=== PATIENT | female | born 1960 | race African-American/Black ===

== ENCOUNTER 2017-11-20 15:56 | Inpatient (IN) | payer BC, OTHER ==
[2017-11-20] MEDS ORDERED: KETOROLAC 30 MG/ML INJ ONE (16:37)
[2017-11-20] MEDS ORDERED: NA CHLORIDE 0.9% 1,000 ML ONE ×2 (16:37→19:09)
[2017-11-20] MEDS ORDERED: ACETAMINOPHEN 500 MG TAB ONE (16:37)
[2017-11-20 17:12] LABS: Protime INR 1.22
[2017-11-20 17:14] LABS: Absolute Lymphocytes (CBC) 1.7 K/uL (0.7-4.9); Absolute Monocytes 1.1 K/uL (0.1-1.3); Absolute Neutrophil 16.9 K/uL (1.8-8.0); Basophils % 0.4 % (0-1.3); Eosinophils % 0.1 % (0-4.4); Hematocrit 45.3 % (36.0-45.0); Lymphocytes % 8.7 % (15.3-44.8); MCH 30.6 pg (27.0-35.0); MCV 93.3 fL (80-100); Monocytes % 5.7 % (3.3-12.3); RBC Red Blood Cell Count 4.86 M/uL (3.86-4.86)
--- NOTE | 2017-11-20 17:28 | RAD REPORT ---
EXAM DESCRIPTION: Arielle Single View11/20/2017 4:46 pm CLINICAL HISTORY: sob COMPARISON: none FINDINGS: Moderate alveolar opacities are present within the mid and lower left lung. Mild alveolar opacities are present within the right lung base. The heart is normal size IMPRESSION: Bilateral pulmonary opacities left greater than right probably represent pneumonia. This should be followed until it is clear to help exclude a post obstructive process/underlying mass
[2017-11-20] MEDS ORDERED: CEFTRIAXONE/SWI 1gm 2 GM/20 ML SYR ONE (17:48)
[2017-11-20] MEDS ORDERED: AZITHROMYCIN 500 MG/250 ML BAG ONE (17:48)
[2017-11-20 18:22] LABS: Potassium 3.5 mEq/L (3.6-5.0)
[2017-11-20 18:26] LABS: Albumin 4.2 g/dL (3.2-5.5); Bilirubin Total 0.7 mg/dL (0.3-1.2); Protein, Total 9.4 g/dL (6.0-8.3)
[2017-11-20 18:28] LABS: Bilirubin Direct 0.1 mg/dL (0-0.2)
[2017-11-20 18:35] LABS: Urine White Blood Cell Casts OK
[2017-11-20 18:36] LABS: Blood Morphology Comment NOT SEEN (NOT SEEN); Platelet Estimate ADEQ
--- NOTE | 2017-11-20 18:50 | RAD REPORT ---
EXAM DESCRIPTION: CT - Thorax W/ Con CLINICAL HISTORY: Cough, shortness of breath. COMPARISON: 09/13/2013 FINDINGS: Prominent fibroemphysematous changes are present throughout the lungs. Lung volume is redu sindy compatible with underlying fibrosis. Infiltrate is suspected in the lingula and inferior aspect o f the left upper lobe most likely representing pneumonia. No pleural thickening or pleural effusion. No pneumothorax. Mildly prominent adenopathy is seen in the mediastinum, presumably reactive. Calcified nodes are also present. No concerning bony finding. No gross upper abdominal finding. All CT scans are performed using dose optimization technique as appropriate and may include automated exposure control or mA/KV adjustment according to patient size. IMPRESSION: Advanced fibrotic and emphysematous changes are present throughout the lungs with reduce d volumes. Opacity in the lingula and inferior aspect left upper lobe likely represents pneumonia.
--- NOTE | 2017-11-20 19:03 | EDPHYS ---
Physician Documentation [facility] Name: Kristal Gaspar Age: 57 yrs Sex: Female : 1960 Arrival Date: 11/20/2017 Time: 16:00 Bed 8 Private MD: ED Physician Lawrence Saucedo HPI: 11/20 18:54 This 57 yrs old Black Female presents to ER via Ambulatory with complaints of Breathing wa Difficulty, Cough. 18:54 The patient has shortness of breath at rest, c/o cough and L side chest pain with cough wa x 1 month. now 1 week of worsening. also fever. short of breath. . Onset: The symptoms/episode began/occurred 1 week(s) ago. Duration: The symptoms are continuous, and are steadily getting worse. The patient's shortness of breath is aggravated by coughing. Associated signs and symptoms: Pertinent positives: chest pain, productive cough, dizziness, fever. Severity of symptoms: At their worst the symptoms were moderate in the emergency department the symptoms are worse moderately. The patient has not experienced similar symptoms in the past. The patient has not recently seen a physician. spokes a pack and a half of cigarettes per day. Historical: - Allergies: 16:13 No Known Allergies; aa5 - PMHx: 16:13 Hypertension; Hyperlipidemia; Degenerative disc disease; low back pain; aa5 - PSHx: 16:12 Hysterectomy; aa5 - Immunization history:: Adult Immunizations unknown. - Social history:: Smoking status: Patient uses tobacco products, smokes 1.5 packs per day. - Family history:: not pertinent. - Hospitalizations: : No recent hospitalization is reported. ROS: 18:57 Eyes: Negative for injury, pain, redness, and discharge, ENT: Negative for injury, wa pain, and discharge, Neck: Negative for injury, pain, and swelling, Abdomen/GI: Negative for abdominal pain, nausea, vomiting, diarrhea, and constipation, Back: Negative for injury and pain, : Negative for injury, bleeding, discharge, and swelling, MS/Extremity: Negative for injury and deformity, Skin: Negative for injury, rash, and discoloration, Neuro: Negative for headache, weakness, numbness, tingling, and seizure, Psych: Negative for depression, anxiety, suicide ideation, homicidal ideation, and hallucinations. 18:57 Constitutional: Positive for chills, fatigue, fever. 18:57 Cardiovascular: Positive for chest pain, with cough, Negative for edema, orthopnea, palpitations. 18:57 Respiratory: Positive for cough, with green sputum, shortness of breath, at rest. 18:57 All other systems are negative. Exam: 18:58 Head/Face: Normocephalic, atraumatic. Eyes: Pupils equal round and reactive to light, wa extra-ocular motions intact. Lids and lashes normal. Conjunctiva and sclera are non-icteric and not injected. Cornea within normal limits. Periorbital areas with no swelling, redness, or edema. ENT: Nares patent. No nasal discharge, no septal abnormalities noted. Tympanic membranes are normal and external auditory canals are clear. Oropharynx with no redness, swelling, or masses, exudates, or evidence of obstruction, uvula midline. Mucous membranes moist. Neck: Trachea midline, no thyromegaly or masses palpated, and no cervical lymphadenopathy. Supple, full range of motion without nuchal rigidity, or vertebral point tenderness. No Meningismus. Chest/axilla: Normal chest wall appearance and motion. Nontender with no deformity. No lesions are appreciated. Abdomen/GI: Soft, non-tender, with normal bowel sounds. No distension or tympany. No guarding or rebound. No evidence of tenderness throughout. Back: No spinal tenderness. No costovertebral tenderness. Full range of motion. Skin: Warm, dry with normal turgor. Normal color with no rashes, no lesions, and no evidence of cellulitis. MS/ Extremity: Pulses equal, no cyanosis. Neurovascular intact. Full, normal range of motion. Neuro: Awake and alert, GCS 15, oriented to person, place, time, and situation. Cranial nerves II-XII grossly intact. Motor strength 5/5 in all extremities. Sensory grossly intact. Cerebellar exam normal. Normal gait. Psych: Awake, alert, with orientation to person, place and time. Behavior, mood, and affect are within normal limits. 18:58 Constitutional: The patient appears alert, mild distress due to pain 18:58 Cardiovascular: Rate: tachycardic, Rhythm: regular, Pulses: no pulse deficits are appreciated, Heart sounds: normal, Edema: is not appreciated, JVD: is not appreciated. 18:58 Respiratory: mild respiratory distress is noted, Respirations: labored breathing, that is mild, Breath sounds: crackles noted bilaterally at mid level down to bases bilaterally. Vital Signs: 16:15 BP 123 / 79; Pulse 124; Resp 24 S; Temp 101.6(TE); Pulse Ox 97% on R/A; Weight 74.39 kg aa5 (R); Height 5 ft. 5 in. (165.10 cm) (R); Pain 7/10; 18:09 BP 122 / 80; Pulse 119; Resp 22; Pulse Ox 97% on R/A; jb1 18:09 BP 122 / 80; Pulse 98; Resp 20; Pulse Ox 96% on 2 lpm NC; iw 18:27 Temp 99.8(O); sv 19:19 BP 122 / 111; Pulse 110; Resp 18; Temp 98.4(A); Pulse Ox 99% on R/A; Pain 0/10; ao 19:52 BP 132 / 80; Pulse 113; Resp 19; Pulse Ox 99% on 2 lpm NC; Pain 0/10; tl1 21:03 BP 92 / 71; Pulse 102; Resp 17; Temp 98.2; Pulse Ox 98% on 2 lpm NC; Pain 2/10; tl1 21:38 BP 99 / 77; Pulse 113; Resp 20; Pulse Ox 96% 2 lpm ; Pain 0/10; ao 16:15 Body Mass Index 27.29 (74.39 kg, 165.10 cm) aa5 MDM: 16:23 Patient medically screened. wa 18:59 Differential diagnosis: Bronchitis CHF exacerbation, Chronic Obstructive Pulmonary wa Disease pneumonia, Pneumothorax pulmonary edema, Pulmonary Embolism Sepsis Unstable Angina r/o pulm mass. Data reviewed: vital signs, nurses notes, lab test result(s), EKG, radiologic studies. Test interpretation: by ED physician or midlevel provider: bilateral pna on CXR. elevated wbc. elevated procal. CT chest. noted pna. noted advanced emphesema. Response to treatment: the patient's symptoms have mildly improved after treatment. Physician consultation: Jed Floyd MD. Admission orders: after a detailed discussion of the patient's condition and case, the admit orders are written by mt. 11/20 16:30 Order name: Basic Metabolic Panel; Complete Time: 18:54 md 11/20 16:30 Order name: Blood Culture Adult (2) md 11/20 16:30 Order name: BNP; Complete Time: 18:23 md 11/20 16:30 Order name: CBC with Diff; Complete Time: 18:54 md 11/20 16:30 Order name: CPK; Complete Time: 18:54 md 11/20 16:30 Order name: Lactate; Complete Time: 18:23 md 11/20 16:30 Order name: LFT's; Complete Time: 18:54 md 11/20 16:30 Order name: Lipase; Complete Time: 18:54 md 11/20 16:30 Order name: Procalcitonin; Complete Time: 18:23 md 11/20 16:30 Order name: Protime (+inr); Complete Time: 18:23 md 11/20 16:30 Order name: Sed Rate; Complete Time: 18:54 md 11/20 16:30 Order name: Troponin (emerg Dept Use Only); Complete Time: 18:23 md 11/20 17:28 Order name: CBC Smear Scan; Complete Time: 18:54 [facility] 11/20 21:01 Order name: Lactate ao 11/20 16:30 Order name: Chest Single View XRAY; Complete Time: 18:07 md 11/20 16:30 Order name: Accucheck; Complete Time: 17:00 md 11/20 16:30 Order name: Cardiac monitoring; Complete Time: 17:01 md 11/20 16:37 Order name: CT Chest W/ Con; Complete Time: 18:53 md 11/20 17:47 Order name: EKG Electrocardiogram; Complete Time: 19:40 EDMT 11/20 21:28 Order name: Lactate EDMT 11/20 16:30 Order name: EKG - Nurse/Tech; Complete Time: 18:10 md 11/20 16:30 Order name: IV Saline Lock - Large Bore; Complete Time: 17:01 md 11/20 16:30 Order name: Labs collected and sent; Complete Time: 17:01 md 11/20 16:30 Order name: O2 Per Protocol; Complete Time: 17: md 11/20 16:30 Order name: O2 Sat Monitoring; Complete Time: 17:01 md Administered Medications: 16:41 CANCELLED (MD changed order): NS 0.9% (30 ml/kg) 30 ml/kg IV at bolus once; Sepsis sv Protocol 16:53 Drug: Tylenol 1000 mg Route: PO; sv 18:26 Follow up: Response: No adverse reaction; Temperature is decreased sv 16:53 Drug: TORadol 30 mg Route: IVP; Site: right antecubital; sv 19:54 Follow up: Response: No adverse reaction; Marked relief of symptoms; Pain is decreased tl1 16:53 Drug: NS 0.9% 1000 ml Route: IV; Rate: 1000 ml; Site: right antecubital; sv 19:26 Follow up: IV Status: Completed infusion tl1 17:50 Drug: Rocephin 2 grams {Note: given over 6 minutes .} Route: IV; Rate: calculated rate; iw Site: right antecubital; 19:26 Follow up: IV Status: Completed infusion tl1 18:13 Drug: Zithromax 500 mg Route: IVPB; Infused Over: 1 hrs; Site: right antecubital; iw 19:40 Follow up: IV Status: Completed infusion tl1 19:12 Drug: Albuterol 1.25 mg Route: Inhalation; tl1 19:25 Drug: NS 0.9% 1000 ml Route: IV; Rate: 1 bolus; Site: right antecubital; tl1 21:54 Follow up: IV Status: Completed infusion; IV Intake: 1000ml ao 19:39 Drug: morphine 4 mg Route: IVP; Infused Over: 2 mins; Site: right antecubital; tl1 19:53 Follow up: Response: No adverse reaction; Marked relief of symptoms; Pain is decreased tl1 19:39 Drug: Zofran 4 mg Route: IVP; Infused Over: 2 mins; Site: right antecubital; tl1 19:54 Follow up: Response: No adverse reaction; Marked relief of symptoms tl1 Disposition: 11/20/17 19:03 Hospitalization ordered by Jed Floyd for Inpatient Admission. Preliminary diagnosis are acute bilateral pneumonia, sepsis, advanced emphesema. - Bed requested for Telemetry/MedSurg (Inpatient). - Status is Inpatient Admission. ao - Condition is Fair. - Problem is new. - Symptoms have improved. UTI on Admission? No Signatures: Dispatcher [employer] Rose Hernandez RN RN kl Verde, Stephanie, RN RN sv Williams, Irene, RN RN Lexi Garcia RN RN [facility] Carmela Oviedo RN RN tl1 Gilbert Santiago RN RN ao Lawrence Saucedo MD MD md Corrections: (The following items were deleted from the chart) 16:41 16:30 NS 0.9% (30 ml/kg) 30 ml/kg IV at bolus once; Sepsis Protocol ordered. [facility] 19:03 19:03 Hospitalization Ordered by Jed Floyd MD for Inpatient Admission. Preliminary md diagnosis is acute bilateral pneumonia; sepsis; advanced emphesema. Bed requested for Telemetry/MedSurg (observation). Status is Inpatient Admission. Condition is Fair. Problem is new. Symptoms have improved. UTI on Admission? No. md 20:49 19:03 11/20/2017 19:03 Hospitalization Ordered by Jed Floyd MD for Inpatient kl Admission. Preliminary diagnosis is acute bilateral pneumonia; sepsis; advanced emphesema. Bed requested for Telemetry/MedSurg (Inpatient). Status is Inpatient Admission. Condition is Fair. Problem is new. Symptoms have improved. UTI on Admission? No. md 21:50 20:49 11/20/2017 19:03 Hospitalization Ordered by Jed Floyd MD for Inpatient ao Admission. Preliminary diagnosis is acute bilateral pneumonia; sepsis; advanced emphesema. Bed requested for Telemetry/MedSurg (Inpatient). Status is Inpatient Admission. Condition is Fair. Problem is new. Symptoms have improved. UTI on Admission? No. kl
--- NOTE | 2017-11-20 19:03 | ER ---
Nurse's Notes [facility] Name: Kristal Gaspar Age: 57 yrs Sex: Female : 1960 Arrival Date: 11/20/2017 Time: 16:00 Bed 8 Private MD: Diagnosis: acute bilateral pneumonia;sepsis;advanced emphesema Presentation: 11/20 16:13 Presenting complaint: Patient states: SOB, dry cough, and chills since yesterday. aa5 Transition of care: patient was not received from another setting of care. Onset of symptoms was November 19, 2017. Initial Sepsis Screen: Does the patient meet any 2 criteria? RR > 20 per min. Temp <36.0*C (96.8*F)) or > 38.3*C (100.4*F). HR > 90 bpm. Care prior to arrival: None. 16:13 Method Of Arrival: Ambulatory aa5 16:13 Acuity: GIULIA 2 aa5 21:10 Initial Sepsis Screen: Does the patient have a suspected source of infection? No. ao Patient's initial sepsis screen is negative. Triage Assessment: 21:09 Respiratory: Onset: The symptoms/episode began/occurred at an unknown time. ao 21:10 Respiratory: Reports shortness of breath the patient has severe shortness of breath. ao Historical: - Allergies: 16:13 No Known Allergies; aa5 - PMHx: 16:13 Hypertension; Hyperlipidemia; Degenerative disc disease; low back pain; aa5 - PSHx: 16:12 Hysterectomy; aa5 - Immunization history:: Adult Immunizations unknown. - Social history:: Smoking status: Patient uses tobacco products, smokes 1.5 packs per day. - Family history:: not pertinent. - Hospitalizations: : No recent hospitalization is reported. Screenin:15 Abuse screen: Denies threats or abuse. Denies injuries from another. Nutritional iw screening: No deficits noted. Tuberculosis screening: No symptoms or risk factors identified. Fall Risk IV access (20 points). Assessment: 18:13 Reassessment: pt assisted to bathroom via wheelchair, placed back in bed, connected to iw monitor, placed back on O2 2 L NC, call light within reach, family at bedside, updated on POC, awaiting admission and room assignment. 18:26 Reassessment: Labs still pending. Lab staff reports blood had to be placed on a iw different machine to be re-run, Dr. Saucedo notified, CT notified to scan pt without lab results, per Dr. Saucedo. 19:14 General: Appears in no apparent distress. comfortable, Behavior is calm, cooperative, ao appropriate for age. Pain: Denies pain. Neuro: Level of Consciousness is awake, alert, obeys commands, Oriented to person, place, time, situation, Appropriate for age Moves all extremities. Speech is normal, Facial symmetry appears normal. Cardiovascular: Capillary refill < 3 seconds Patient's skin is warm and dry. Cardiovascular: Rhythm is regular. Respiratory: Airway is patent Respiratory effort is even, unlabored, Respiratory pattern is regular, symmetrical, Breath sounds are clear. GI: Abdomen is non-distended. : No signs and/or symptoms were reported regarding the genitourinary system. EENT: No signs and/or symptoms were reported regarding the EENT system. Derm: Skin is intact, Skin temperature is warm. Musculoskeletal: Range of motion: intact in all extremities. 19:17 Reassessment: Provide crackers and grape juice. patient is able to eat per Dr Saucedo. ao 20:20 Reassessment: Patient appears in no apparent distress at this time. Patient and/or ao family updated on plan of care and expected duration. Pain level reassessed. Patient is alert, oriented x 3, equal unlabored respirations, skin warm/dry/pink. Waiting for room assigment. 21:07 Reassessment: Patient appears in no apparent distress at this time. Patient and/or ao family updated on plan of care and expected duration. Pain level reassessed. Patient is alert, oriented x 3, equal unlabored respirations, skin warm/dry/pink. Patient to be taken to her room. Patient agree with the POC. 21:38 Reassessment: BP low after given Pain medications BP was rechecked before patient ao transported to her room to be 99/77. Report was given to DEB Villanueva. Vital Signs: 16:15 BP 123 / 79; Pulse 124; Resp 24 S; Temp 101.6(TE); Pulse Ox 97% on R/A; Weight 74.39 kg aa5 (R); Height 5 ft. 5 in. (165.10 cm) (R); Pain 7/10; 18:09 BP 122 / 80; Pulse 119; Resp 22; Pulse Ox 97% on R/A; jb1 18:09 BP 122 / 80; Pulse 98; Resp 20; Pulse Ox 96% on 2 lpm NC; iw 18:27 Temp 99.8(O); sv 19:19 BP 122 / 111; Pulse 110; Resp 18; Temp 98.4(A); Pulse Ox 99% on R/A; Pain 0/10; ao 19:52 BP 132 / 80; Pulse 113; Resp 19; Pulse Ox 99% on 2 lpm NC; Pain 0/10; tl1 21:03 BP 92 / 71; Pulse 102; Resp 17; Temp 98.2; Pulse Ox 98% on 2 lpm NC; Pain 2/10; tl1 21:38 BP 99 / 77; Pulse 113; Resp 20; Pulse Ox 96% 2 lpm ; Pain 0/10; ao 16:15 Body Mass Index 27.29 (74.39 kg, 165.10 cm) aa5 ED Course: 16:00 Patient arrived in ED. as 16:15 Triage completed. aa5 16:15 Arm band placed on. aa5 16:19 Jose Velasquez, RN is Primary Nurse. sg 16:23 Lawrence Saucedo MD is Attending Physician. wa 16:35 First set of blood cultures drawn by me. jb1 16:39 Radiology exam delayed due to lab results not completed at this time. (BUN/Creatinine). vr 16:44 X-ray completed. Portable x-ray completed in exam room. Patient tolerated procedure mh1 well. 16:44 Chest Single View XRAY In Process Unspecified. EDMS 16:50 Second set of blood cultures drawn by me. jb1 17:01 Missed attempt(s): 22 gauge in left antecubital area. jb1 17:01 Initial lab(s) drawn, by me, sent to lab. Inserted saline lock: 22 gauge in right jb1 antecubital area, using aseptic technique. Blood collected. 17:19 EKG done, by automotive exhaust emissions technician. reviewed by Lawrence Saucedo MD. jb1 17:39 Radiology exam delayed due to lab results not completed at this time. (BUN/Creatinine). vr 17:49 Radiology exam delayed due to lab results not completed at this time. (BUN/Creatinine). vr 18:[address] vm2 18:34 CT completed. Patient tolerated procedure well. Patient moved back from CT. nj 18:39 CT Chest W/ Con In Process Unspecified. EDDC 19:01 Lawrence Saucedo MD is Hospitalizing Provider. wa 19:02 Jed Floyd MD is Hospitalizing Provider. ky 19:18 Gilbert Santiago, RN is Primary Nurse. ao 21:04 Patient has correct armband on for positive identification. Pulse ox on. NIBP on. ao 21:07 No provider procedures requiring assistance completed. Patient admitted, IV remains in ao place. Administered Medications: 16:41 CANCELLED ( changed order): NS 0.9% (30 ml/kg) 30 ml/kg IV at bolus once; Sepsis sv Protocol 16:53 Drug: Tylenol 1000 mg Route: PO; sv 18:26 Follow up: Response: No adverse reaction; Temperature is decreased sv 16:53 Drug: TORadol 30 mg Route: IVP; Site: right antecubital; sv 19:54 Follow up: Response: No adverse reaction; Marked relief of symptoms; Pain is decreased tl1 16:53 Drug: NS 0.9% 1000 ml Route: IV; Rate: 1000 ml; Site: right antecubital; sv 19:26 Follow up: IV Status: Completed infusion tl1 17:50 Drug: Rocephin 2 grams {Note: given over 6 minutes .} Route: IV; Rate: calculated rate; iw Site: right antecubital; 19:26 Follow up: IV Status: Completed infusion tl1 18:13 Drug: Zithromax 500 mg Route: IVPB; Infused Over: 1 hrs; Site: right antecubital; iw 19:40 Follow up: IV Status: Completed infusion tl1 19:12 Drug: Albuterol 1.25 mg Route: Inhalation; tl1 19:25 Drug: NS 0.9% 1000 ml Route: IV; Rate: 1 bolus; Site: right antecubital; tl1 21:54 Follow up: IV Status: Completed infusion; IV Intake: 1000ml ao 19:39 Drug: morphine 4 mg Route: IVP; Infused Over: 2 mins; Site: right antecubital; tl1 19:53 Follow up: Response: No adverse reaction; Marked relief of symptoms; Pain is decreased tl1 19:39 Drug: Zofran 4 mg Route: IVP; Infused Over: 2 mins; Site: right antecubital; tl1 19:54 Follow up: Response: No adverse reaction; Marked relief of symptoms tl1 Intake: 21:54 IV: 1000ml; Total: 1000ml. ao Outcome: 19:03 Decision to Hospitalize by Provider. wa 21:09 Admitted to Tele accompanied by tech, room 416, with chart, Report called to mala Pereira RN 21:09 Condition: stable 21:09 Instructed on the need for admit. 21:50 Patient left the ED. ao Signatures: Dispatcher [employer] EDJuan Luis [place] Stephanie, RN RN Jose Hazel RN RN sg Cherry Montejo Luna Osullivan Irene RN DEB Lexi Garcia RN RN aa5 Davis, Victoria vr Lasagna, Tonya, RN RN tl1 Gilbert Santiago RN RN Krishna Hyman Victoria [facility] Lawrence Saucedo MD MD [place] Corrections: (The following items were deleted from the chart) 18:15 18:09 BP 122 / 80; Pulse 98bpm; Resp 20bpm; Pulse Ox 96% RA; sg iw
[2017-11-20] MEDS ORDERED: ALBUTEROL 2.5 MG/3 ML NEB SOL ONE (19:05)
[2017-11-20] MEDS ORDERED: MORPHINE 4 MG/ML SYR ONE (19:30)
[2017-11-20] MEDS ORDERED: ONDANSETRON 4 MG/2 ML VIAL ONE (19:31)
--- NOTE | 2017-11-20 20:55 | P.HP ---
Certification for Inpatient Patient admitted to: Inpatient With expected LOS: >2 Midnights Practitioner: I am a practitioner with admitting privileges, knowledge of patient current condition, hospital course, and medical plan of care. Services: Services provided to patient in accordance with Admission requirements found in Title 42 Section 412.3 of the Code of Federal Regulations Patient History Date of Service: 11/20/17 Reason for admission: COPD exacerbation History of Present Illness: Ms Gaspar is a 57 years old woman with history of COPD, tobacco abuse, HTN, who start about 1 week ago with progressive SOB. It was associated with productive cough, with yellowish/bloodied secretions. Since yesterday her symptoms got worse. She start with fever and chills as well. The patient smoke 1.5 pack of cigarettes per day. ER work up remarkable for leukocytosis 19.8K, elevated procalcitonin, normal lactate. CT chest report an opacity in the lingula and inferior aspect left upper lobe likely represents pneumonia. Temp in ER 101.6 F. O2 sat 97% on RA. - Past Medical/Surgical History -: HTN -: dyslipidemia -: COPD -: Tobacco abuse -: Hysterectomy - Family History Family History: Reviewed- Non-Contributory - Social History Smoking Status: Heavy Tobacco smoker (>10 cigarettes/day) Counseled patient to stop smoking for: less than 10 minutes CD- Drugs: No Place of Residence: Home Review of Systems 10-point ROS is otherwise unremarkable Physical Examination - Physical Exam General: Alert, In no apparent distress HEENT: Atraumatic, PERRLA, Mucous membr. moist/pink, EOMI, Sclerae nonicteric Neck: Supple, 2+ carotid pulse no bruit, No LAD, Without JVD or thyroid abnormality Respiratory: Diminished, Crackles/rales (bibasilar crackles, more on left base than right.) Cardiovascular: Regular rate/rhythm, Normal S1 S2 Gastrointestinal: Normal bowel sounds, No tenderness Musculoskeletal: No tenderness Integumentary: No rashes Neurological: Normal speech, Normal strength at 5/5 x4 extr, Normal tone, Normal affect Lymphatics: No axilla or inguinal lymphadenopathy - Studies Laboratory Data (last 24 hrs) 11/20/17 16:50: PT 14.4 H, INR 1.22 11/20/17 16:50: WBC 19.8 H, Hgb 14.9, Hct 45.3 H, Plt Count 214 05/04/18 16:50: B-Natriuretic Peptide 131 H 11/20/17 16:50: Sodium 135, Potassium 3.5 L, BUN 10, Creatinine 0.91, Glucose 108, Total Bilirubin 0.7, AST 20, ALT 19, Alkaline Phosphatase 104, Lipase 11 L Assessment and Plan - Problems (Diagnosis) (1) COPD exacerbation Current Visit: Yes Status: Acute (2) Pneumonia Current Visit: Yes Status: Acute Qualifiers: Pneumonia type: due to unspecified organism Laterality: left Lung location: upper lobe of lung Qualified Code(s): J18.1 - Lobar pneumonia, unspecified organism (3) HTN (hypertension) Current Visit: Yes Status: Acute Qualifiers: Hypertension type: essential hypertension Qualified Code(s): I10 - Essential (primary) hypertension (4) Tobacco abuse Current Visit: Yes Status: Acute - Plan The patient will be admitted to the hospital due to COPD exacerbation secondary to pneumonia. Will order IV levaquin, IV steroids, and scheduled breathing treatment. She is hemodynamically stable at the moment. - Advance Directives Does patient have a Living Will: No Does patient have a Durable POA for Healthcare: No - Code Status/Comfort Care Code Status Assessed: Yes Code Status: Full Code
[2017-11-20] MEDS ORDERED: ONDANSETRON 4 MG/2 ML VIAL IV PRN (22:08)
[2017-11-20] MEDS: Levofloxacin 750mg IV 750 MG/150 ML BAG IV SCH (22:38)
[2017-11-20] MEDS: NA CHLORIDE 0.9% 1,000 ML IV SCH (22:38)
[2017-11-20] MEDS: ALBUTEROL 2.5 MG/3 ML NEB SOL NEB SCH (23:31)
[2017-11-20] MEDS: IPRATROPIUM BROM 0.5MG/2.5ML NEB SCH (23:31)
[2017-11-21] MEDS: METHYLPREDNISOLONE 40 MG INJ IV SCH ×5 (00:19→23:20)
[2017-11-21] MEDS: NA CHLORIDE 0.9% 1,000 ML IV SCH ×4 (00:23→17:22)
[2017-11-21] MEDS: IPRATROPIUM BROM 0.5MG/2.5ML NEB SCH ×5 (03:38→20:00)
[2017-11-21] MEDS: ALBUTEROL 2.5 MG/3 ML NEB SOL NEB SCH ×5 (03:38→20:00)
[2017-11-21 06:06] LABS: Absolute Lymphocytes (CBC) 0.4 K/uL (0.7-4.9); Absolute Monocytes 0.5 K/uL (0.1-1.3); Absolute Neutrophil 14.5 K/uL (1.8-8.0); Basophils % 0.1 % (0-1.3); Hematocrit 38.2 % (36.0-45.0); Lymphocytes % 2.7 % (15.3-44.8); MCH 30.7 pg (27.0-35.0); MCV 94.4 fL (80-100); MPV 10.3 fL (7.6-11.3); RBC Red Blood Cell Count 4.04 M/uL (3.86-4.86)
[2017-11-21 06:28] LABS: Potassium 3.6 mEq/L (3.6-5.0)
--- NOTE | 2017-11-21 07:43 | EKG ---
Test Date: 2017-11-20 Test Time: 17:19:44 [employer]ing [employer] Operator: TOM MEASUREMENT RESULTS: Intervals: Rate: 114 MO: 200 QRSD: 86 QT: 298 QTc: 410 Stephens: P: MO: 200 QRS: 98 T: 95 INTERPRETIVE STATEMENTS: Sinus tachycardia Lateral infarct, age undetermined Abnormal ECG No previous ECG available for comparison Electronically Signed On 11-21-17 07:42:51 CDT by Ty White
[2017-11-21] MEDS ORDERED: POTASSIUM 25 MEQ EFFERV TAB PO ONE (08:00)
[2017-11-21] MEDS: ENOXAPARIN 40 MG/0.4 ML SQ SCH (09:14)
--- NOTE | 2017-11-21 15:27 | P.PN ---
Subjective Date of Service: 11/21/17 Chief Complaint: COPD exacerbation Subjective: Improving Review of Systems 10-point ROS is otherwise unremarkable Physical Examination - Vital Signs Temperature: 98.2 F Blood Pressure: 97/58 Pulse: 98 Respirations: 16 Pulse Ox (%): 97 - Physical Exam General: Alert, Oriented x3, Mild distress HEENT: Atraumatic, Normocephalic, PERRLA Neck: Supple, JVD not distended, No Thyromegaly, No LAD Respiratory: Normal air movement, Expiratory wheezes Cardiovascular: No edema, Normal pulses, Regular rate/rhythm, Normal S1 S2 Gastrointestinal: Normal bowel sounds, Soft and benign, W/out hepatosplenomegaly , No ascites, No tenderness, No masses, No rebound, No guarding - Studies Laboratory Data (last 24 hrs) 11/20/17 16:50: PT 14.4 H, INR 1.22 11/20/17 16:50: WBC 19.8 H, Hgb 14.9, Hct 45.3 H, Plt Count 214 11/20/17 16:50: B-Natriuretic Peptide 131 H 11/20/17 16:50: Sodium 135, Potassium 3.5 L, BUN 10, Creatinine 0.91, Glucose 108, Total Bilirubin 0.7, AST 20, ALT 19, Alkaline Phosphatase 104, Lipase 11 L Microbiology Data (last 24 hrs): 11/20/17 16:35 Blood - Blood Anaerobic Blood Culture - Final 11/20/17 16:50 Blood - Blood Anaerobic Blood Culture - Final Assessment And Plan - Current Problems (Diagnosis) (1) COPD exacerbation Current Visit: Yes Status: Acute Plan: continue on levaquine scheduled nebulizer, steroids and oxygen follow cultures (2) Tobacco abuse Current Visit: Yes Status: Acute Plan: counselled start nicotine patch Discharge Plan: Home Physician Review: Patient Assessed, Agree with Above Assessment and Plan Time Spent Managing PTS Care (In Minutes): 30
[2017-11-21] MEDS: NICOTINE 21 MG/PAT TD SCH (16:21)
[2017-11-21] MEDS ORDERED: MELATONIN 3 MG TABLET PO PRN (20:39)
[2017-11-21] MEDS: Levofloxacin 750mg IV 750 MG/150 ML BAG IV SCH (21:14)
[2017-11-22] MEDS: IPRATROPIUM BROM 0.5MG/2.5ML NEB SCH ×6 (03:17→19:35)
[2017-11-22] MEDS: ALBUTEROL 2.5 MG/3 ML NEB SOL NEB SCH ×6 (03:18→19:36)
[2017-11-22] MEDS: METHYLPREDNISOLONE 40 MG INJ IV SCH ×2 (05:25→11:48)
[2017-11-22] MEDS: NA CHLORIDE 0.9% 1,000 ML IV SCH ×3 (05:25→20:57)
[2017-11-22 05:26] LABS: Absolute Lymphocytes (CBC) 0.6 K/uL (0.7-4.9); Absolute Monocytes 0.5 K/uL (0.1-1.3); Absolute Neutrophil 11.6 K/uL (1.8-8.0); Hematocrit 34.8 % (36.0-45.0); Lymphocytes % 4.9 % (15.3-44.8); MCH 30.9 pg (27.0-35.0); MCV 94.4 fL (80-100); MPV 10.7 fL (7.6-11.3); Monocytes % 3.8 % (3.3-12.3); RBC Red Blood Cell Count 3.69 M/uL (3.86-4.86)
[2017-11-22 05:49] LABS: BUN Blood Urea Nitrogen 7 mg/dL (6-20); Bicarbonate 23 mEq/L (21-31); Glucose Level 148 mg/dL (65-120); Potassium 3.9 mEq/L (3.6-5.0); Sodium Level 140 mEq/L (135-145)
[2017-11-22] MEDS: ACETAMINOPHEN 500 MG TAB PO PRN ×2 (07:46→21:00)
[2017-11-22] MEDS ORDERED: POTASSIUM 25 MEQ EFFERV TAB PO ONE (09:00)
[2017-11-22] MEDS: ENOXAPARIN 40 MG/0.4 ML SQ SCH (09:25)
[2017-11-22] MEDS: NICOTINE 21 MG/PAT TD SCH (09:25)
--- NOTE | 2017-11-22 13:49 | P.PN ---
Subjective Date of Service: 11/22/17 Chief Complaint: COPD exacerbation Subjective: Improving (still SOB and requiring oxygen) Review of Systems 10-point ROS is otherwise unremarkable Physical Examination - Vital Signs Temperature: 98 F Blood Pressure: 116/66 Pulse: 89 Respirations: 16 Pulse Ox (%): 92 - Physical Exam General: Alert, In no apparent distress, Oriented x3 HEENT: Atraumatic, Normocephalic, PERRLA Neck: Supple, JVD not distended, No Thyromegaly, No LAD Respiratory: Clear to auscultation bilaterally, Normal air movement Cardiovascular: No edema, Normal pulses, Regular rate/rhythm, Normal S1 S2, No gallops, No rubs, No murmurs Gastrointestinal: Normal bowel sounds, Soft and benign, Non-distended, W/out hepatosplenomegaly, No ascites, No tenderness, No masses, No rebound, No guarding Musculoskeletal: No clubbing, No swelling, No contractures, No erythema, No tenderness, No warmth - Studies Microbiology Data (last 24 hrs): 11/20/17 16:50 Blood - Blood Anaerobic Blood Culture - Final 11/20/17 16:35 Blood - Blood Anaerobic Blood Culture - Final Assessment And Plan - Current Problems (Diagnosis) (1) COPD exacerbation Current Visit: Yes Status: Acute Plan: continue to require oxygen continue on levaquine scheduled nebulizer switch to po steroids and oxygen check ambulating oxygen saturation follow cultures (2) Tobacco abuse Current Visit: Yes Status: Acute Plan: counselled start nicotine patch Discharge Plan: Home Physician Review: Patient Assessed, Agree with Above Assessment and Plan Time Spent Managing PTS Care (In Minutes): 30
[2017-11-22] MEDS: levoFLOXacin 750 MG TAB PO SCH (16:03)
[2017-11-22] MEDS: ZOLPIDEM TARTRATE 5 MG TABLET PO PRN (20:56)
[2017-11-23] MEDS: NA CHLORIDE 0.9% 1,000 ML IV SCH ×2 (00:08→05:45)
[2017-11-23] MEDS: IPRATROPIUM BROM 0.5MG/2.5ML NEB SCH ×2 (04:00)
[2017-11-23] MEDS: ALBUTEROL 2.5 MG/3 ML NEB SOL NEB SCH ×2 (04:00)
[2017-11-23 05:17] VITALS: BMI 29.8
[2017-11-23] MEDS: ACETAMINOPHEN 500 MG TAB PO PRN ×3 (05:44→21:00)
[2017-11-23 06:30] LABS: Potassium 3.4 mEq/L (3.6-5.0)
[2017-11-23] MEDS: KCL 20 MEQ/100 mL IVPB 20 MEQ/100 ML BAG IV SCH ×2 (06:54→09:00)
[2017-11-23] MEDS ORDERED: IPRATROPIUM BROM 0.5MG/2.5ML NEB PRN (07:33)
[2017-11-23] MEDS ORDERED: ALBUTEROL 2.5 MG/3 ML NEB SOL NEB PRN (07:33)
--- NOTE | 2017-11-23 08:04 | P.CNS ---
Date of Consult: 11/23/17 Reason for Consult: Pneumonia Chief Complaint: Pneumonia History of Present Illness: Patient is 57 years of a complaining of left-sided chest discomfort cough weakness worsening shortness of breath, some chills and appeared in the hospital admitted with a diagnosis of pneumonia has a history of COPD compliant with it inhalers sees a senior regulatory affairs specialist in [place] also has a primary care doctor over there in addition patient sees a back doctor still smokes Allergies No Known Allergies Allergy (Unverified 11/20/17 21:03) Home Medications: Butalb/Acetaminophen/Caffeine [Netzvmos-Koqpmvurhyrbo-Ybie Cp] 1 tab PO Q4HP PRN 11/20/17 Gabapentin [Neurontin*] 1 cap PO BID 11/20/17 Hydrocodone/Acetaminophen [Hydrocodone-Acetamin 10-325 mg] 1 tab PO Q6HP PRN 11/04 Meloxicam 1 tab PO DAILY PRN 11/20/17 Pravastatin Sodium 1 tab PO BEDTIME 11/20/17 Zolpidem Tartrate 1 tab PO BEDTIME PRN 11/20/17 - Past Medical/Surgical History Diabetic: No -: HTN -: dyslipidemia -: COPD -: Tobacco abuse -: Hysterectomy - Family History Mother Medical History: Heart disease, Stroke Father History Unknown: Yes - Social History Alcohol use: No CD- Drugs: Yes Caffeine use: Yes Place of Residence: Home Review of Systems General: Fever, Chills Respiratory: Cough, Shortness of Breath Cardiovascular: Chest Pain Physical Examination Temp Pulse Resp BP Pulse Ox 98.5 F 98 H 18 118/67 99 11/23/17 07:41 11/23/17 07:41 11/23/17 07:41 11/23/17 07:41 11/23/17 07:41 General: Alert, Oriented x3 HEENT: Atraumatic Neck: Supple Respiratory: Crackles/rales (Crackles on the left side) Cardiovascular: No edema, Normal S1 S2 Gastrointestinal: Normal bowel sounds, Soft and benign, Non-distended - Problems (1) Pneumonia Current Visit: Yes Status: Acute Plan: Patient is 57 years of age with a history of COPD active smoker admitted with signs and symptoms consistent with left lower lobe pneumonia most likely pneumococcal white count was elevated has a history of COPD continues to smoke agree with levofloxacin medication list reviewed the echo room-air oxygen status patient can be discharged home on levofloxacin 500 mg daily for about 7 days resume her bronchodilators at home advised to quit smoking to follow up with a senior regulatory affairs specialist or myself in about 4 weeks to make sure this infiltrate has cleared blood cultures negative Qualifiers: Pneumonia type: due to unspecified organism Laterality: left Lung location: upper lobe of lung Qualified Code(s): J18.1 - Lobar pneumonia, unspecified organism
[2017-11-23] MEDS: ARFORMOTEROL TARTRATE 15 MCG/2 ML VIAL.NEB NEB SCH ×2 (08:27→20:30)
[2017-11-23] MEDS ORDERED: predniSONE 20 MG TAB PO SCH (09:00)
[2017-11-23] MEDS: ENOXAPARIN 40 MG/0.4 ML SQ SCH (09:00)
[2017-11-23] MEDS: levoFLOXacin 750 MG TAB PO SCH (09:22)
[2017-11-23] MEDS: NICOTINE 21 MG/PAT TD SCH (09:22)
[2017-11-23] MEDS: predniSONE 20 MG TAB PO SCH ×2 (09:22→20:46)
[2017-11-23] MEDS ORDERED: POTASSIUM CL SA 10 MEQ TAB PO ONE (09:24)
--- NOTE | 2017-11-23 09:50 | RAD REPORT ---
EXAM DESCRIPTION: [place] Pa And Lat (2 Views)11/23/2017 9:06 am CLINICAL HISTORY: Cough COMPARISON: November 20 FINDINGS: The left lung opacities have partially resolved. No change has occurred in additional jn ateral interstitial opacities which have the appearance of pulmonary fibrosis. IMPRESSION: Partial resolution in a left lung pneumonia
[2017-11-23] MEDS: GABAPENTIN 300 MG CAP PO SCH ×2 (14:07→20:46)
--- NOTE | 2017-11-23 15:38 | P.PN ---
Subjective Date of Service: 11/23/17 Primary Care Provider: Dr. Damon([place]); Pulmonary-Dr. Castano Chief Complaint: Pneumonia Subjective: Improving Physical Examination - Vital Signs Temperature: 98.6 F Blood Pressure: 111/58 Pulse: 100 Respirations: 16 Pulse Ox (%): 100 - Physical Exam General: Alert, In no apparent distress, Oriented x3, Cooperative HEENT: Atraumatic Neck: Supple Respiratory: Expiratory wheezes Cardiovascular: Normal pulses, Regular rate/rhythm Gastrointestinal: Normal bowel sounds, Soft and benign, Non-distended, No tenderness, No masses, No rebound, No guarding Musculoskeletal: No erythema, No tenderness, No warmth Integumentary: No tenderness/swelling, No erythema, No warmth, No cyanosis Neurological: Normal speech, Normal strength at 5/5 x4 extr, Normal tone, Normal affect - Studies Medications List Reviewed: Yes Assessment & Plan - Problems (Diagnosis) (1) COPD (chronic obstructive pulmonary disease) Current Visit: Yes Status: Acute Plan: Continue with COPD treatment. Will try to wean off oxygen. Patient may require home oxygen at discharge. Will reassess tomorrow. Plan for discharge tomorrow. Will discuss with pulmonology. Qualifiers: COPD type: COPD with acute exacerbation Qualified Code(s): J44.1 - Chronic obstructive pulmonary disease with (acute) exacerbation (2) Chronic pain Current Visit: Yes Status: Chronic Plan: Will continue with her medication. Qualifiers: Chronic pain type: chronic pain syndrome Qualified Code(s): G89.4 - Chronic pain syndrome (3) Pneumonia Onset Date: 11/23/17 Current Visit: Yes Status: Acute Plan: Will continue with oral antibiotic therapy. X-ray shows improvement. Will wean off oxygen. Anticipate discharge tomorrow. Will discuss case with pulmonology. Qualifiers: Pneumonia type: due to unspecified organism Laterality: left Lung location: upper lobe of lung Qualified Code(s): J18.1 - Lobar pneumonia, unspecified organism (4) Tobacco abuse Onset Date: 11/23/17 Current Visit: Yes Status: Chronic Plan: Will continue with tobacco cessation. Discharge Plan: Home Plan to discharge in: 24 Hours Time Spent Managing Pts Care (In Minutes): 55
[2017-11-23] MEDS: ZOLPIDEM TARTRATE 5 MG TABLET PO PRN (20:48)
[2017-11-23] MEDS ORDERED: ATORVASTATIN 10 MG TAB PO SCH (21:00)
[2017-11-23] MEDS ORDERED: HOME MED 1 EA UNK (Pravastatin Sodium [Pravastatin Sodium] 1 TAB) PO SCH (21:00)
[2017-11-24] MEDS: ACETAMINOPHEN 500 MG TAB PO PRN (02:31)
[2017-11-24 06:07] LABS: Hematocrit 37.1 % (36.0-45.0); MCH 30.8 pg (27.0-35.0); MPV 9.9 fL (7.6-11.3); RBC Red Blood Cell Count 3.99 M/uL (3.86-4.86)
[2017-11-24 06:08] LABS: BUN Blood Urea Nitrogen 7 mg/dL (6-20); Bicarbonate 26 mEq/L (21-31); Glucose Level 125 mg/dL (65-120); Potassium 4.3 mEq/L (3.6-5.0); Sodium Level 138 mEq/L (135-145)
[2017-11-24] MEDS: ARFORMOTEROL TARTRATE 15 MCG/2 ML VIAL.NEB NEB SCH (08:56)
[2017-11-24] MEDS: NICOTINE 21 MG/PAT TD SCH (09:21)
[2017-11-24] MEDS: ENOXAPARIN 40 MG/0.4 ML SQ SCH (09:21)
[2017-11-24] MEDS: levoFLOXacin 750 MG TAB PO SCH (09:22)
[2017-11-24] MEDS: GABAPENTIN 300 MG CAP PO SCH (09:22)
[2017-11-24] MEDS: predniSONE 20 MG TAB PO SCH (09:22)
[2017-11-24 09:42] LABS: Arterial Blood Carboxyhemoglob 1.5 % (0-1.5); Blood Gas Oxyhemoglobin 85.6 % (94-97); Blood O2 Saturation 87.3 % (92-98.5)
--- NOTE | 2017-11-24 11:03 | P.DS ---
Admission Date: 11/20/17 Discharge Date: 11/24/17 Primary Care Provider: Dr. Damon([place]); Pulmonary-Dr. Castano Disposition: ROUTINE DISCHARGE Discharge Condition: GOOD Reason for Admission: Pneumonia Consultations: Pulmonology-Dr. Gomes Procedures: CT scan: FINDINGS: Prominent fibroemphysematous changes are present throughout the lungs. Lung volume is reduced compatible with underlying fibrosis. Infiltrate is suspected in the lingula and inferior aspect of the left upper lobe most likely representing pneumonia. No pleural thickening or pleural effusion. No pneumothorax. Mildly prominent adenopathy is seen in the mediastinum, presumably reactive. Calcified nodes are also present. No concerning bony finding. No gross upper abdominal finding. All CT scans are performed using dose optimization technique as appropriate and may include automated exposure control or mA/KV adjustment according to patient size. IMPRESSION: Advanced fibrotic and emphysematous changes are present throughout the lungs with reduced volumes. Opacity in the lingula and inferior aspect left upper lobe likely represents pneumonia. - Problems (1) COPD (chronic obstructive pulmonary disease) Current Visit: Yes Status: Acute Qualifiers: COPD type: COPD with acute exacerbation Qualified Code(s): J44.1 - Chronic obstructive pulmonary disease with (acute) exacerbation (2) Chronic pain Current Visit: Yes Status: Chronic Qualifiers: Chronic pain type: chronic pain syndrome Qualified Code(s): G89.4 - Chronic pain syndrome (3) Pneumonia Onset Date: 11/23/17 Current Visit: Yes Status: Acute Qualifiers: Pneumonia type: due to unspecified organism Laterality: left Lung location: upper lobe of lung Qualified Code(s): J18.1 - Lobar pneumonia, unspecified organism (4) Tobacco abuse Onset Date: 11/23/17 Current Visit: Yes Status: Chronic (5) Hyperlipidemia Current Visit: Yes Status: Chronic Qualifiers: Hyperlipidemia type: unspecified Qualified Code(s): E78.5 - Hyperlipidemia , unspecified Brief History of Present Illness: 57-year-old female present emergency room with shortness of breath. Patient found to have pneumonia with COPD exacerbation. The patient was admitted for treatment. Hospital Course: Patient presented with shortness of breath. Patient found to have left upper lobe pneumonia with COPD exacerbation. Patient was evaluated by pulmonology. Patient receives treatment for pneumonia and COPD. Her condition improved.At discharge patient was found to have some hypoxia related to COPD. At discharge , Home oxygen will be set up to maintain sats above 90%. At discharge she will continue with Levaquin 500 mg 1 pill daily for 7 days. Tessalon Perles 100 mg 1 pill 3 times a day as needed for cough will be provided. Patient will continue with COPD treatment-Symbicort 2 puffs twice daily and Pro air 2 puffs 3 times a day as needed for shortness of breath. The patient will also continue with prednisone 20 mg 1 pill twice daily for 5 days then 1 pill once daily for 5 days. Recommendation is for the patient to follow up with pulmonology in 1-2 weeks to follow up this hospitalization. Patient may need to limit activities. Patient may return to work with light duty. Recommendation is to recheck chest x-ray in 2-4 weeks to monitor resolution. Patient has hyperlipidemia. She will continue with her medication pravastatin 40 mg 1 pill once daily. Patient will continue with her chronic pain medication including gabapentin and hydrocodone. Recommendation on no further use of nonsteroidal anti- inflammatories. Patient with history of tobacco use. Recommendation for cessation. Nicotine patches will be provided. Vital Signs/Physical Exam: Temp Pulse Resp BP Pulse Ox 97.0 F 84 16 127/73 98 11/24/17 08:00 11/24/17 08:00 11/24/17 08:00 11/24/17 08:00 11/24/17 08:00 General: Alert, In no apparent distress, Oriented x3, Cooperative HEENT: Atraumatic, Mucous membr. moist/pink Neck: Supple Respiratory: Expiratory wheezes (But improved) Cardiovascular: Normal pulses, Regular rate/rhythm Gastrointestinal: Normal bowel sounds, Soft and benign, Non-distended, No tenderness, No masses, No rebound, No guarding Musculoskeletal: No erythema, No tenderness, No warmth Integumentary: No tenderness/swelling, No erythema, No warmth, No cyanosis Neurological: Normal speech, Normal strength at 5/5 x4 extr, Normal tone, Normal affect Laboratory Data at Discharge: WBC 11.7 K/uL (4.3-10.9) H 11/24/17 05:30 Hgb 12.3 g/dL (12.0-15.0) 11/24/17 05:30 Hct 37.1 % (36.0-45.0) 05/08/18 05:30 Plt Count 211 K/uL (152-406) 11/24/17 05:30 PT 14.4 SECONDS (9.5-12.5) H 11/20/17 16:50 INR 1.22 11/20/17 16:50 Sodium 138 mEq/L (135-145) 11/24/17 05:30 Potassium 4.3 mEq/L (3.6-5.0) 11/24/17 05:30 BUN 7 mg/dL (6-20) 11/24/17 05:30 Creatinine 0.72 mg/dL (0.44-1.00) 11/24/17 05:30 Glucose 125 mg/dL (65-120) H 11/24/17 05:30 Magnesium 2.0 mg/dL (1.8-2.5) 11/24/17 05:30 Total Bilirubin 0.7 mg/dL (0.3-1.2) 11/20/17 16:50 AST 20 IU/L (10-42) 11/20/17 16:50 ALT 19 IU/L (10-60) 11/20/17 16:50 Alkaline Phosphatase 104 IU/L (42-121) 11/20/17 16:50 B-Natriuretic Peptide 131 pg/ml (<=100) H 11/20/17 16:50 Lipase 11 U/L (22-51) L 11/20/17 16:50 Home Medications: Butalb/Acetaminophen/Caffeine [Qcvisesh-Zfqcyljwptnpf-Dfyv Cp] 1 tab PO Q4HP PRN 11/20/17 Gabapentin [Neurontin*] 1 cap PO BID 11/20/17 Hydrocodone/Acetaminophen [Hydrocodone-Acetamin 10-325 mg] 1 tab PO Q6HP PRN 11/04 Pravastatin Sodium 1 tab PO BEDTIME 11/20/17 Zolpidem Tartrate 1 tab PO BEDTIME PRN 11/20/17 Albuterol Sulfate [Proair Hfa] 8.5 gm IH TID PRN #1 hfa.aer.ad 11/24/17 Benzonatate [Tessalon Perle] 100 mg PO TID PRN #30 cap 11/24/17 Budesonide/Formoterol Fumarate [Symbicort 160-4.5 Mcg Inhaler] 2 puff IH BID #1 hfa.aer.ad 11/24/17 Levofloxacin [Levaquin] 500 mg PO DAILY #7 tab 11/24/17 Nicotine [Nicoderm*] 21 mg TD DAILY #30 patch.td24 11/24/17 Prednisone [Prednisone*] 20 mg PO SEECOM #15 tab 11/24/17 New Medications: Albuterol Sulfate [Proair Hfa] 8.5 gm IH TID PRN #1 hfa.aer.ad PRN Reason: Shortness Of Breath Benzonatate [Tessalon Perle] 100 mg PO TID PRN #30 cap PRN Reason: Cough Budesonide/Formoterol Fumarate [Symbicort 160-4.5 Mcg Inhaler] 2 puff IH BID #1 hfa.aer.ad Levofloxacin [Levaquin] 500 mg PO DAILY #7 tab Nicotine [Nicoderm*] 21 mg TD DAILY #30 patch.td24 Prednisone [Prednisone*] 20 mg PO SEECOM #15 tab Patient Discharge Instructions: 1. Patient will need a follow up with her PCP in 1 week to follow up this hospitalization. 2. Patient presented with shortness of breath. Patient found to have left upper lobe pneumonia with COPD exacerbation. Patient evaluated by pulmonology. At discharge patient will require home oxygen. Home oxygen will be set up to maintain sats above 90%. At discharge she will continue with Levaquin 500 mg 1 pill daily for 7 days. Tessalon Perles 100 mg 1 pill 3 times a day as needed for cough will be provided. Patient will continue with COPD treatment-Symbicort 2 puffs twice daily and Pro air 2 puffs 3 times a day as needed for shortness of breath. The patient will also continue with prednisone 20 mg 1 pill twice daily for 5 days then 1 pill once daily for 5 days. Recommendation is for the patient to follow up with pulmonology in 1-2 weeks to follow up this hospitalization. Patient may need to limit activities. Patient may return to work with light duty. Recommendation is to recheck chest x-ray in 2-4 weeks to monitor resolution. 3. Patient has hyperlipidemia. She will continue with her medication pravastatin 40 mg 1 pill once daily. 4. Patient will continue with her chronic pain medication including gabapentin and hydrocodone. Recommendation on no further use of nonsteroidal anti-inflammatories. 5. Patient with history of tobacco use. Recommendation for cessation. Nicotine patches will be provided. Diet: AHA Activity: Fall precautions Time spent managing pt's care (in minutes): 55
[2017-11-24 15:03] VITALS: O2SAT 95
[2017-11-24 17:20] VITALS: BP 121/72; TEMP 97.9
== END 2017-11-24 16:57 | disposition home or self-care (01) | DRG 190 ==
LOC: ER 15:56 → ERHOLD 19:05 → 4TH 21:05
PROVIDERS: ADMIT Internal Medicine; ATTEND Family Medicine
DX: J44.0 Chronic obstructive pulmonary disease with (acute) lower respiratory infection (principal); J18.1 Lobar pneumonia, unspecified organism; J44.1 Chronic obstructive pulmonary disease with (acute) exacerbation; I10 Essential (primary) hypertension; E78.5 Hyperlipidemia, unspecified; G89.29 Other chronic pain; R09.02 Hypoxemia; F17.210 Nicotine dependence, cigarettes, uncomplicated; Z71.6 Tobacco abuse counseling
CPT/HCPCS: 36415; 71045; 71046; 71260; 80048; 80076; 82550; 82805; 83605; 83690; 83735; 83880; 84145; 84484; 85025; 85027; 85610; 85652; 87040; 87070; 87205; 93005; 94640; 94760; 94762; 96361; 96365; 96375; 97163; 99285; J0456; J0696; J1650; J2405; J2920; J7030; J7512; J7605; Q9967

== ENCOUNTER 2019-06-14 11:25 | Emergency (ER) | payer BC ==
[2019-06-14] MEDS ORDERED: DICYCLOMINE HCL 10 MG CAP ONE (12:19)
[2019-06-14] MEDS ORDERED: KETOROLAC 30 MG/ML INJ ONE (12:19)
[2019-06-14] MEDS ORDERED: MAGNE/ALUM HYDROXD 30 ML UCUP ONE (12:19)
[2019-06-14] MEDS ORDERED: LIDOCAINE VISCOUS 2% SOLN 15 ML UDC ONE (12:20)
[2019-06-14] MEDS ORDERED: NA CHLORIDE 0.9% 1,000 ML ONE (12:20)
[2019-06-14 12:47] LABS: Absolute Lymphocytes (CBC) 1.5 K/uL (0.7-4.9); Basophils % 0.8 % (0-1.3); Hematocrit 48.8 % (36.0-45.0); Lymphocytes % 26.4 % (15.3-44.8); MPV 10.9 fL (7.6-11.3); RBC Red Blood Cell Count 4.94 M/uL (3.86-4.86)
[2019-06-14 13:53] LABS: Albumin 3.1 g/dL (3.4-5.0); Bilirubin Total 0.5 mg/dL (0.2-1.0); Potassium 4.2 mmol/L (3.5-5.1); Protein, Total 6.9 g/dL (6.4-8.2)
--- NOTE | 2019-06-14 14:26 | RAD REPORT ---
EXAM DESCRIPTION: CTAbdomen Pelvis W Contrast - 06/14/2019 2:15 pm CLINICAL HISTORY: Abdominal pain. hx of gallbladder CA s/p removal with epi/RLQ abd pain COMPARISON: No comparisons TECHNIQUE: Biphasic CT imaging of the abdomen and pelvis was performed with 100 ml non-ionic IV cont rast. All CT scans are performed using dose optimization technique as appropriate and may include automated exposure control or mA/KV adjustment according to patient size. FINDINGS: Fibrotic changes are present in the lung bases. Mild fatty liver is seen. Cholecystectomy clips are evident. The spleen, pancreas, adrenal glands and kidneys are within normal limits. No bowel obstruction, free air, free fluid or abscess. Small fat containing supraumbilical hernia is present. Appendectomy. No evidence of significant lymphadenopathy. No suspicious bony findings. IMPRESSION: No acute intra-abdominal or pelvic finding. Small fat containing supraumbilical hernia. Fibrotic changes in the lung bases.
--- NOTE | 2019-06-14 14:56 | EDPHYS ---
Physician Documentation [facility] Name: Kristal Gaspar Age: 58 yrs Sex: Female : 1960 Arrival Date: 06/14/2019 Time: 11: Bed 26 Private MD: ED Physician Carlos Lockwood HPI: 06/14 11:52 This 58 yrs old Black Female presents to ER via Ambulatory with complaints of Abdominal ps1 Pain. 11:52 patient has a history of gallbladder CA s/p resection. Reportedly finished chemotherapy ps1 a month ago. Started having non-specific abdominal pain after cessation of chemo. States the pain is localized to epigastrium and RLQ s/p appendectomy. Pain is rated as moderate, no remitting factors. No fever. No NVD or blood in stool. Tolerating PO. . Historical: - Allergies: : No Known Allergies; la1 - PMHx: : Degenerative disc disease; Hyperlipidemia; Hypertension; low back pain; la1 - Immunization history:: Adult Immunizations up to date. - Social history:: Smoking status: Patient uses tobacco products, denies chronic smoking, but will smoke occasionally. - Ebola Screening: : No symptoms or risks identified at this time. ROS: 11:52 Constitutional: Negative for fever, chills, and weight loss, Eyes: Negative for injury, ps1 pain, redness, and discharge, Cardiovascular: Negative for chest pain, palpitations, and edema, Respiratory: Negative for shortness of breath, cough, wheezing, and pleuritic chest pain, MS/Extremity: Negative for injury and deformity, Skin: Negative for injury, rash, and discoloration, Neuro: Negative for headache, weakness, numbness, tingling, and seizure. 11:52 Abdomen/GI: Positive for abdominal pain. Exam: 11:52 Constitutional: This is a well developed, well nourished patient who is awake, alert, ps1 and in no acute distress. Head/Face: Normocephalic, atraumatic. Eyes: Pupils equal round and reactive to light, extra-ocular motions intact. Lids and lashes normal. Conjunctiva and sclera are non-icteric and not injected. Cardiovascular: Regular rate and rhythm. No gallops, murmurs, or rubs. Normal PMI, no JVD. No pulse deficits. Respiratory: Lungs have equal breath sounds bilaterally, clear to auscultation and percussion. No rales, rhonchi or wheezes noted. No increased work of breathing, no retractions or nasal flaring. Abdomen/GI: Soft, non-tender, with normal bowel sounds. No distension or tympany. No guarding or rebound. No evidence of tenderness throughout. Skin: Warm, dry with normal turgor. Normal color with no rashes, no lesions, and no evidence of cellulitis. MS/ Extremity: Pulses equal, no cyanosis. Neurovascular intact. Full, normal range of motion. Neuro: Awake and alert, GCS 15, oriented to person, place, time, and situation. Cranial nerves II-XII grossly intact. Sensory grossly intact. Vital Signs: 11:29 BP 121 / 79; Pulse 92; Resp 16; Temp 98.1; Pulse Ox 100% on R/A; Weight 68.04 kg; la1 Height 5 ft. 5 in. (165.10 cm); 12:36 BP 104 / 72; Pulse 78; Resp 20; Pulse Ox 94% on R/A; aj1 15:29 BP 110 / 78; Pulse 79; Resp 18; Temp 98; Pulse Ox 100% on R/A; mg2 11:29 Body Mass Index 24.96 (68.04 kg, 165.10 cm) la1 MDM: 11:48 Patient medically screened. ps1 11:55 Differential diagnosis: diverticulitis, gastritis, gastroesophageal reflux disease, GI ps1 Bleed, pancreatitis, Peptic Ulcer Disease. Data reviewed: vital signs, nurses notes. 14:56 Counseling: I had a detailed discussion with the patient and/or guardian regarding: the ps1 historical points, exam findings, and any diagnostic results supporting the discharge/admit diagnosis, lab results, radiology results, the need for outpatient follow up, to return to the emergency department if symptoms worsen or persist or if there are any questions or concerns that arise at home. ED course: patient is prescribed 10/325 [place] by pain management. Continue if pain persists. Take colace. Return precautions given. Likely adhesions from previous surgery. Work note for heavy lifting but unlikely to affect patient 2/2 fat containing hernia. 06/14 11:51 Order name: CBC with Diff; Complete Time: 12:52 ps1 06/14 11:51 Order name: CMP; Complete Time: 13:56 ps1 06/14 11:51 Order name: Lactate; Complete Time: 13:12 ps1 06/14 11:51 Order name: Lipase; Complete Time: 13:56 [facility] 06/14 11:51 Order name: CT Abd/Pelvis - IV Contrast Only; Complete Time: 14:40 ps1 06/14 12:56 Order name: Labs - recollect needed: green top; Complete Time: 13:07 iw Administered Medications: 12:43 Drug: TORadol - Ketorolac 15 mg Route: IVP; Site: right forearm; mg2 15:30 Follow up: Response: No adverse reaction mg2 12:44 Drug: GI Cocktail without - (Maalox Suspension 30 ml, Lidocaine Liquid 2 % 15 mg2 ml) Route: PO; 15:30 Follow up: Response: No adverse reaction mg2 12:45 Drug: NS 0.9% 1000 ml Route: IV; Rate: 1 bolus; Site: right forearm; mg2 15:31 Follow up: Response: No adverse reaction; IV Status: Completed infusion; IV Intake: mg2 1000ml 12:45 Drug: Bentyl 10 mg Route: PO; mg2 15:30 Follow up: Response: No adverse reaction mg2 15:25 Drug: [place] 10 mg-325 mg 1 tabs Route: PO; mg2 15:30 Follow up: Response: No adverse reaction; Medication administered at discharge. mg2 Disposition: 06/14/19 14:55 Discharged to Home. Impression: Abdominal pain, Constipation. - Condition is Stable. - Discharge Instructions: Abdominal Pain, Adult. - Prescriptions for Colace 100 mg Oral Capsule - take 1 tablet by ORAL route every 12 hours; 30 tablet. - Medication Reconciliation Form, Thank You Letter, Antibiotic Education, Prescription Opioid Use, Work release form form. - Follow up: Private Physician; When: As needed; Reason: Further diagnostic work-up, Recheck today's complaints, Continuance of care, Re-evaluation by your physician. Follow up: Emergency Department; When: As needed; Reason: Worsening of condition. - Problem is an ongoing problem. - Symptoms are unchanged. Signatures: Dispatcher [employer] EDMS Jaimie Patton RN RN iw Keith Chatman RN RN la1 Carlos Lockwood MD MD ps1 Daniel Sarkar RN RN mg2 Corrections: (The following items were deleted from the chart) 12:56 12:55 Labs - recollect needed ordered. iw iw 15:31 14:55 06/14/2019 14:55 Discharged to Home. Impression: Abdominal pain; Constipation. mg2 Condition is Stable. Forms are Medication Reconciliation Form, Thank You Letter, Antibiotic Education, Prescription Opioid Use. Follow up: Private Physician; When: As needed; Reason: Further diagnostic work-up, Recheck today's complaints, Continuance of care, Re-evaluation by your physician. Follow up: Emergency Department; When: As needed; Reason: Worsening of condition. Problem is an ongoing problem. Symptoms are unchanged. ps1
--- NOTE | 2019-06-14 14:56 | ER ---
Nurse's Notes [facility] Name: Kristal Gaspar Age: 58 yrs Sex: Female : 1960 Arrival Date: 06/14/2019 Time: 11: Bed 26 Private MD: Diagnosis: Abdominal pain;Constipation Presentation: 06/14 11:28 Presenting complaint: Patient states: abd pain for a couple weeks on and off. la1 Transition of care: patient was not received from another setting of care. Onset of symptoms was June 14, 2019. Risk Assessment: Do you want to hurt yourself or someone else? Patient reports no desire to harm self or others. Initial Sepsis Screen: Does the patient meet any 2 criteria? No. Patient's initial sepsis screen is negative. Does the patient have a suspected source of infection? No. Patient's initial sepsis screen is negative. Care prior to arrival: None. 11:28 Method Of Arrival: Ambulatory la1 11:28 Acuity: GIULIA 3 la1 Historical: - Allergies: 11:28 No Known Allergies; la1 - PMHx: 11:28 Degenerative disc disease; Hyperlipidemia; Hypertension; low back pain; la1 - Immunization history:: Adult Immunizations up to date. - Social history:: Smoking status: Patient uses tobacco products, denies chronic smoking, but will smoke occasionally. - Ebola Screening: : No symptoms or risks identified at this time. Screenin:35 Abuse screen: Denies threats or abuse. Denies injuries from another. Nutritional aj1 screening: No deficits noted. Tuberculosis screening: No symptoms or risk factors identified. 15:31 Fall Risk IV access (20 points). mg2 Assessment: 11:35 General: Appears in no apparent distress. uncomfortable, Behavior is calm, cooperative, aj1 appropriate for age. Pain: Complains of pain in epigastric area and right lower quadrant Pain does not radiate. Pain currently is 8 out of 10 on a pain scale. Neuro: Level of Consciousness is awake, alert, obeys commands, Oriented to person, place, time, situation. Cardiovascular: Patient's skin is warm and dry. Respiratory: Airway is patent Respiratory effort is even, unlabored, Respiratory pattern is regular, symmetrical. GI: Abdomen is non-distended, Bowel sounds present X 4 quads. Abd is soft X 4 quads Abdomen is tender to palpation in right lower quadrant Patient currently denies diarrhea, nausea, vomiting. : No signs and/or symptoms were reported regarding the genitourinary system. EENT: No signs and/or symptoms were reported regarding the EENT system. Derm: No signs and/or symptoms reported regarding the dermatologic system. Skin is pink, warm \T\ dry. normal. Musculoskeletal: No signs and/or symptoms reported regarding the musculoskeletal system. Circulation, motion, and sensation intact. 12:35 Reassessment: Patient appears in no apparent distress at this time. No changes from aj1 previously documented assessment. Patient and/or family updated on plan of care and expected duration. Pain level reassessed. Patient is alert, oriented x 3, equal unlabored respirations, skin warm/dry/pink. 13:58 Reassessment: patient complained of abdominal pain. provider informed and said to wait mg2 for ct report. patient informed. Vital Signs: 11:29 BP 121 / 79; Pulse 92; Resp 16; Temp 98.1; Pulse Ox 100% on R/A; Weight 68.04 kg; la1 Height 5 ft. 5 in. (165.10 cm); 12:36 BP 104 / 72; Pulse 78; Resp 20; Pulse Ox 94% on R/A; aj1 15:29 BP 110 / 78; Pulse 79; Resp 18; Temp 98; Pulse Ox 100% on R/A; mg2 11:29 Body Mass Index 24.96 (68.04 kg, 165.10 cm) la1 ED Course: 11:26 Patient arrived in ED. as 11:29 Triage completed. la1 11:29 Arm band placed on right wrist. la1 11:33 Carlos Lockwood MD is Attending Physician. ps1 11:35 Patient has correct armband on for positive identification. Bed in low position. Call aj1 light in reach. Side rails up X 1. 11:35 No provider procedures requiring assistance completed. aj1 11:45 Kristan Rodas, RN is Primary Nurse. aj1 12:42 Radiology exam delayed due to lab results not completed at this time. IV insertion sj attempt and/or patient not having appropriate IV at this time. 12:46 Inserted saline lock: 22 gauge in right forearm, using aseptic technique. Blood mg2 collected. 14:14 CT Abd/Pelvis - IV Contrast Only In Process Unspecified. EDMS 15:29 IV discontinued, intact, bleeding controlled, No redness/swelling at site. Pressure mg2 dressing applied. Administered Medications: 12:43 Drug: TORadol - Ketorolac 15 mg Route: IVP; Site: right forearm; mg2 15:30 Follow up: Response: No adverse reaction mg2 12:44 Drug: GI Cocktail without - (Maalox Suspension 30 ml, Lidocaine Liquid 2 % 15 mg2 ml) Route: PO; 15:30 Follow up: Response: No adverse reaction mg2 12:45 Drug: NS 0.9% 1000 ml Route: IV; Rate: 1 bolus; Site: right forearm; mg2 15:31 Follow up: Response: No adverse reaction; IV Status: Completed infusion; IV Intake: mg2 1000ml 12:45 Drug: Bentyl 10 mg Route: PO; mg2 15:30 Follow up: Response: No adverse reaction mg2 15:25 Drug: [place] 10 mg-325 mg 1 tabs Route: PO; mg2 15:30 Follow up: Response: No adverse reaction; Medication administered at discharge. mg2 Intake: 15:31 IV: 1000ml; Total: 1000ml. mg2 Outcome: 14:55 Discharge ordered by . ps1 15:30 Discharged to home via wheelchair, with family. mg2 15:30 Condition: stable 15:30 Discharge instructions given to patient, family, Instructed on discharge instructions, follow up and referral plans. medication usage, Demonstrated understanding of instructions, follow-up care, medications, Prescriptions given X 1. 15:31 Patient left the ED. mg2 Signatures: Dispatcher [employer] EDMS Kristan Rodas RN RN aj1 Petra Dubose Amelia as Attema, Lee, RN RN la1 Carlos Lockwood MD MD ps1 Daniel Sarkar RN RN mg2
[2019-06-14] MEDS ORDERED: HYDROCODONE/APAP 10/325 TAB ONE (15:14)
[2019-06-14 15:53] VITALS: BP 110/78; TEMP 98; O2SAT 100
== END 2019-06-14 15:31 | disposition home or self-care (01) ==
LOC: ER 11:25
DX: K59.00 Constipation, unspecified (principal); I10 Essential (primary) hypertension; Z72.0 Tobacco use; Z85.09 Personal history of malignant neoplasm of other digestive organs
CPT/HCPCS: 96361; 85025; 36415; 83605; 83690; 80053; 74177; 96374; 99284; Q9967; J7030

== ENCOUNTER 2019-07-02 12:28 | Emergency (ER) | payer BC ==
[2019-07-02] MEDS ORDERED: ONDANSETRON 4 MG/2 ML VIAL ONE (13:02)
[2019-07-02] MEDS ORDERED: MORPHINE 4 MG/ML SYR ONE (13:02)
[2019-07-02 13:14] LABS: Urine Blood NEGATIVE (NEG); Urine Glucose TRACE (NEG); Urine Protein 2+ (NEG)
[2019-07-02 13:26] LABS: Absolute Lymphocytes (CBC) 2.6 K/uL (0.7-4.9); Basophils % 0.6 % (0-1.3); Hematocrit 42.8 % (36.0-45.0); RBC Red Blood Cell Count 4.38 M/uL (3.86-4.86)
[2019-07-02 13:35] LABS: Protime INR 1.2
[2019-07-02 13:41] LABS: Urine Bacteria <20 /HPF (<20); Urine Culture Reflex Order NOT NEEDED; Urine Mucus 2+ /HPF (NONE SEEN); Urine RBC <5 /HPF (NONE SEEN)
[2019-07-02 13:55] LABS: Albumin 2.9 g/dL (3.4-5.0); Bilirubin Direct 14.9 mg/dL (0-0.2); Potassium 3.9 mmol/L (3.5-5.1); Protein, Total 7.5 g/dL (6.4-8.2)
--- NOTE | 2019-07-02 13:56 | RAD REPORT ---
EXAM DESCRIPTION: RAD - Chest Pa And Lat (2 Views) - 07/02/2019 1:48 pm CLINICAL HISTORY: COUGH Chest pain. COMPARISON: Chest Pa And Lat (2 Views) dated 11/23/2017; Chest Single View dated 11/20/2017Chest Pa And Lat (2 Views) dated 11/23/2017; Chest Single View dated 11/20/2017; Abdomen Pelvis W Contrast dated FINDINGS: Moderate bilateral interstitial lung opacities, greater on the left have the appearance of pulmonary fibrosis. The heart is mildly enlarged in size. No displaced fractures. IMPRESSION: Pulmonary fibrosis suspected.
--- NOTE | 2019-07-02 14:15 | RAD REPORT ---
EXAM DESCRIPTION: CTAbdomen Pelvis W Contrast - 07/02/2019 1:58 pm CLINICAL HISTORY: Abdominal pain. ABD PAIN COMPARISON: Abdomen Pelvis W Contrast dated 06/14/2019 TECHNIQUE: Biphasic CT imaging of the abdomen and pelvis was performed with 100 ml non-ionic IV cont rast. All CT scans are performed using dose optimization technique as appropriate and may include automated exposure control or mA/KV adjustment according to patient size. FINDINGS: Fibrotic changes are present in both lung bases. Moderate to significant intrahepatic biliary tree dilatation is seen. Common duct does not appear pat hologically dilated. Pancreatic duct appears normal size. Cholecystectomy clips. The spleen, pancreat ic parenchyma, adrenal glands and kidneys show no pathologic process. No bowel obstruction, free air, free fluid or abscess. Moderate fat containing supraumbilical ventral hernia. Appendectomy. No evidence of significant lymphadenopathy. No suspicious bony findings. IMPRESSION: Moderate to significant intrahepatic biliary dilatation is seen. Followup MRCP may be of value for further assessment.
--- NOTE | 2019-07-02 14:42 | EDPHYS ---
Physician Documentation [facility] Name: Kristal Gaspar Age: 58 yrs Sex: Female : 1960 Arrival Date: 07/02/2019 Time: 12:29 Bed 6 Private MD: PATITO Physician Chris Kruse HPI: 07/02 13:11 This 58 yrs old Black Female presents to ER via Ambulatory with complaints of Abdominal pm1 Pain, Eye Problem - yellow. 13:11 The patient presents with abdominal pain in the epigastric area, right lower quadrant. pm1 Onset: The symptoms/episode began/occurred 3 week(s) ago. The symptoms do not radiate. Associated signs and symptoms: Pertinent negatives: nausea, vomiting, and diarrhea, chest pain, constipation, dysuria, fever, shortness of breath. Modifying factors: The symptoms are alleviated by nothing, the symptoms are aggravated by nothing. Severity of pain: in the emergency department the pain is unchanged. Patient with a history of gallbladder cancer. Cholecystectomy in July 2018 and completion of chemotherapy in October 2018. No problems since chemotherapy until abdominal pain started three weeks ago. Pain to epigastric area and RLQ. Noticed today that both of her eyes were yellow. 13:34 Reported only new medication is Emgality which she took on June 22, 2019. pm1 Historical: - Allergies: 12:40 No Known Allergies; sv - PMHx: 12:40 Degenerative disc disease; Hyperlipidemia; Hypertension; low back pain; sv 13:41 Gallbladder cancer; aa5 - PSHx: 12:40 Appendectomy; Cholecystectomy; sv - Immunization history:: Flu vaccine is up to date. - Social history:: Smoking status: Patient uses tobacco products, smokes one-half pack cigarettes per day. - Ebola Screening: : No symptoms or risks identified at this time. ROS: 13:57 Constitutional: Negative for fever, chills, and weight loss, ENT: Negative for injury, pm1 pain, and discharge, Neck: Negative for injury, pain, and swelling, Cardiovascular: Negative for chest pain, palpitations, and edema, Respiratory: Negative for shortness of breath, cough, wheezing, and pleuritic chest pain. 13:57 Back: Negative for injury and pain, : Negative for injury, bleeding, discharge, and swelling, MS/Extremity: Negative for injury and deformity, Skin: Negative for injury, rash, and discoloration, Neuro: Negative for headache, weakness, numbness, tingling, and seizure. 13:57 Eyes: Positive for icterus, Negative for discharge, pain, visual disturbance. 13:57 Abdomen/GI: Positive for abdominal pain, of the epigastric area and right lower quadrant, Negative for nausea, vomiting, and diarrhea. Exam: 13:57 Constitutional: This is a well developed, well nourished patient who is awake, alert, pm1 and in no acute distress. Head/Face: Normocephalic, atraumatic. 13:57 ENT: Nares patent. No nasal discharge, no septal abnormalities noted. Tympanic membranes are normal and external auditory canals are clear. Oropharynx with no redness, swelling, or masses, exudates, or evidence of obstruction, uvula midline. Mucous membranes moist. Neck: Trachea midline, no thyromegaly or masses palpated, and no cervical lymphadenopathy. Supple, full range of motion without nuchal rigidity, or vertebral point tenderness. No Meningismus. Chest/axilla: Normal chest wall appearance and motion. Nontender with no deformity. No lesions are appreciated. Cardiovascular: Regular rate and rhythm with a normal S1 and S2. No gallops, murmurs, or rubs. Normal PMI, no JVD. No pulse deficits. Respiratory: Lungs have equal breath sounds bilaterally, clear to auscultation and percussion. No rales, rhonchi or wheezes noted. No increased work of breathing, no retractions or nasal flaring. 13:57 Back: No spinal tenderness. No costovertebral tenderness. Full range of motion. 13:57 Eyes: Periorbital structures: appear normal, Pupils: equal, round, and reactive to light and accomodation, Extraocular movements: intact throughout, Conjunctiva: no acute changes, Sclera: icterus, is present, Lids and lashes: appear normal, bilaterally. 13:57 Abdomen/GI: Inspection: abdomen appears normal, Bowel sounds: normal, Palpation: moderate abdominal tenderness, in the epigastric area, mass, is not appreciated, rebound tenderness, is not appreciated. 13:57 Skin: Appearance: normal except for affected area, Color: jaundiced. 13:57 Neuro: Orientation: is normal, Mentation: is normal, Motor: is normal, moves all fours, Gait: is steady, at a normal pace, without difficulty. Vital Signs: 12:39 BP 123 / 85; Pulse 91; Resp 20; Temp 98.2; Pulse Ox 93% on R/A; Weight 67.59 kg; Height sv 5 ft. 5 in. (165.10 cm); 13:15 aa5 13:17 BP 103 / 74; Pulse 87; Resp 16 S; Pulse Ox 96% on 2 lpm NC; aa5 13:35 BP 91 / 68; Pulse 86; Resp 16 S; Pulse Ox 96% on 2 lpm NC; aa5 14:50 BP 128 / 87; Pulse 82; Resp 16 S; Temp 97.8(TE); Pulse Ox 96% on 2 lpm NC; aa5 15:36 BP 106 / 83; Pulse 80; Resp 18 S; Pulse Ox 97% on 2 lpm NC; aa5 16:30 BP 106 / 80; Pulse 80; Resp 16 S; Temp 97.8(TE); Pulse Ox 97% on 2 lpm NC; aa5 12:39 Body Mass Index 24.80 (67.59 kg, 165.10 cm) sv 13:15 O2 sat fluctuating at 89% to 91% RA. Pt placed on oxygen and SENIOR UX DEVELOPER notified. aa5 MDM: 12:45 Patient medically screened. pm1 14:39 Data reviewed: vital signs. Data interpreted: Pulse oximetry: on room air is 96 %. pm1 Interpretation: normal. Counseling: I had a detailed discussion with the patient and/or guardian regarding: the historical points, exam findings, and any diagnostic results supporting the discharge/admit diagnosis, lab results, radiology results, the need to transfer to another facility, [facility] does not immediately have the required specialist, No GI, No MRI. 15:40 ED course: Last ate food yesterday. Drank coffee this AM at 0900. pm1 15:40 Physician consultation: MD ANDRE Miller was contacted at 15:35, regarding regarding pm1 transfer, patient's condition, and will see patient. 15:47 Physician consultation: MD Estelita Bethea was contacted at 15:48, regarding regarding pm1 transfer, patient's condition, and will see patient. 07/02 12:46 Order name: Creatinine for Radiology; Complete Time: 14:09 pm1 07/02 12:46 Order name: Basic Metabolic Panel; Complete Time: 14:09 pm1 07/02 12:46 Order name: CBC with Diff; Complete Time: 14:09 pm1 07/02 12:46 Order name: Hepatic Function; Complete Time: 14:09 pm1 07/02 12:46 Order name: Lipase; Complete Time: 14:09 pm1 07/02 12:46 Order name: Urine Microscopic Only; Complete Time: 13:43 pm1 07/02 12:46 Order name: CT Abd/Pelvis - IV Contrast Only; Complete Time: 14:17 pm1 07/02 12:56 Order name: Urine Dipstick--Ancillary (enter results); Complete Time: 13:23 iw 07/02 12:57 Order name: PT-INR; Complete Time: 14:09 pm1 07/02 13:24 Order name: Chest Pa And Lat (2 Views) XRAY; Complete Time: 14:09 pm1 07/02 14:14 Order name: AMMONIA; Complete Time: 16:26 pm1 07/02 12:46 Order name: IV Saline Lock; Complete Time: 13:26 pm1 07/02 12:46 Order name: Labs collected and sent; Complete Time: 13:26 pm1 07/02 12:46 Order name: Urine Dipstick-Ancillary (obtain specimen); Complete Time: 12:53 pm1 07/02 14:45 Order name: NPO; Complete Time: 14:46 pm1 Administered Medications: 13:15 Drug: Zofran 4 mg Route: IVP; Site: left forearm; aa5 16:33 Follow up: Response: No adverse reaction bp 13:17 Drug: morphine 4 mg Route: IVP; Site: left forearm; aa5 16:33 Follow up: Response: Pain is decreased bp 14:52 Drug: NS 0.9% 500 ml Route: IV; Rate: bolus; Site: left forearm; aa5 16:32 Follow up: IV Status: Completed infusion; IV Intake: 500ml bp 16:20 Drug: NS 0.9% 1000 ml Route: IV; Rate: 100 ml/hr; Site: right antecubital; bp 16:50 Follow up: IV Status: Infusion continued upon transfer aa5 16:32 Drug: fentaNYL (PF) 25 mcg Route: IVP; Site: left forearm; bp 16:50 Follow up: Response: No adverse reaction; Pain is decreased aa5 Disposition: 07/02/19 14:41 Transfer ordered to [facility]. Diagnosis are Intrahepatic bilary tree obstruction, Unspecified jaundice, Abnormal results of liver function studies. - Reason for transfer: Higher level of care. - [facility] - Condition is Stable. - Problem is new. - Symptoms have improved. Addendum: 07/04/2019 10:19 Co-signature as Attending Physician, Chris Kruse MD I agree with the assessment and c mckay plan of care. Signatures: Dispatcher [employer] Kely Florian, RN RN Chris Solano MD MD cha Calderon, Audri RN RN aa5 Humberto Murguia, SENIOR UX DEVELOPER SENIOR UX DEVELOPER pm1 James Ramos RN RN bp Corrections: (The following items were deleted from the chart) 07/02 13:58 13:34 Reported only new medication is Aimovig which she took on June 22, 2019. pm1 pm1 14:43 14:41 07/02/2019 14:41 Transfer ordered to [facility]. Diagnosis is pm1 Intrahepatic bilary tree obstructionUnspecified jaundice. Reason for transfer: Higher level of care. [facility]ing physician [facility]. Condition is Stable. Problem is new. Symptoms have improved. pm1 16:58 14:43 07/02/2019 14:41 Transfer ordered to [facility]. Diagnosis is aa5 Intrahepatic bilary tree obstructionUnspecified jaundice; Abnormal results of liver function studies. Reason for transfer: Higher level of care. [facility] Condition is Stable. Problem is new. Symptoms have improved. pm1
--- NOTE | 2019-07-02 14:42 | ER ---
Nurse's Notes [facility] Name: Kristal Gaspar Age: 58 yrs Sex: Female : 1960 Arrival Date: 07/02/2019 Time: 12:29 Bed 6 Private MD: Diagnosis: Unspecified jaundice;Intrahepatic bilary tree obstruction;Abnormal results of liver function studies Presentation: 07/02 12:38 Presenting complaint: Patient states: right side abd pain x 2 weeks, today started with sv "yellow eyes" Denies n/v/d. Transition of care: patient was not received from another setting of care. Onset of symptoms was July 02, 2019. Risk Assessment: Do you want to hurt yourself or someone else? Patient reports no desire to harm self or others. Care prior to arrival: None. 12:38 Method Of Arrival: Ambulatory sv 12:38 Acuity: GIULIA 3 sv 13:00 Initial Sepsis Screen: Does the patient meet any 2 criteria? No. Patient's initial aa5 sepsis screen is negative. Does the patient have a suspected source of infection? No. Patient's initial sepsis screen is negative. Historical: - Allergies: 12:40 No Known Allergies; sv - PMHx: 12:40 Degenerative disc disease; Hyperlipidemia; Hypertension; low back pain; sv 13:41 Gallbladder cancer; aa5 - PSHx: 12:40 Appendectomy; Cholecystectomy; sv - Immunization history:: Flu vaccine is up to date. - Social history:: Smoking status: Patient uses tobacco products, smokes one-half pack cigarettes per day. - Ebola Screening: : No symptoms or risks identified at this time. Screenin:00 Abuse screen: Denies threats or abuse. Nutritional screening: No deficits noted. aa5 Tuberculosis screening: No symptoms or risk factors identified. Fall Risk None identified. Assessment: 13:00 General: Appears comfortable, Behavior is calm, cooperative. Pain: Complains of pain in aa5 right lower quadrant Pain does not radiate. Pain currently is 8 out of 10 on a pain scale. Quality of pain is described as sharp, Pain began 2-3 weeks ago Is continuous. Neuro: Level of Consciousness is awake, alert, obeys commands, Oriented to person, place, time, situation. Cardiovascular: Heart tones S1 S2 present Rhythm is regular. Respiratory: Reports cough that is productive, with clear sputum Airway is patent Respiratory effort is even, unlabored, Respiratory pattern is regular, symmetrical, Breath sounds are clear bilaterally. GI: Abdomen is flat, non-distended, Bowel sounds present X 4 quads. Abdomen is tender to palpation in right lower quadrant Reports nausea, Patient currently denies diarrhea, vomiting. : No signs and/or symptoms were reported regarding the genitourinary system. EENT: Sclera/Cornea yellow in color . Derm: Skin is dry, Skin is jaundiced, Skin temperature is warm. Musculoskeletal: Range of motion: intact in all extremities. 13:35 Neuro: Level of Consciousness is awake, alert, obeys commands, Oriented to person, aa5 place, time, situation. Respiratory: Airway is patent Respiratory effort is even, unlabored, Respiratory pattern is regular, symmetrical. Derm: Skin is dry, Skin is jaundiced, Skin temperature is warm. 13:35 Reassessment: Patient states feeling better. aa5 14:50 Reassessment: Pt appears upset about need for transfer. Pt crying at this time. Pt aa5 given facial tissues. Pt states "I just wish I could eat something because I haven't eaten". Explained to patient need to keep NPO, pt verbalizes understanding. . Neuro: Level of Consciousness is awake, alert, obeys commands, Oriented to person, place, time, situation. Respiratory: Airway is patent Respiratory effort is even, unlabored, Respiratory pattern is regular, symmetrical. Derm: Skin is dry, Skin is jaundiced, Skin temperature is warm. 15:40 Reassessment: Awaiting number for report to transfer facility, pt notified of wait aa5 time. Pt verbalizes understanding. Pt sitting up in bed watching TV, equal and unlabored, respirations, skin is jaundiced/warm/dry. . 16:30 Reassessment: Awaiting EMS for transfer, pt notified of wait time. Denies any aa5 complaints at this time. . Neuro: Level of Consciousness is awake, alert, obeys commands, Oriented to person, place, time, situation. Respiratory: Airway is patent Respiratory effort is even, unlabored, Respiratory pattern is regular, symmetrical. Derm: Skin is dry, Skin is jaundiced, Skin temperature is warm. Vital Signs: 12:39 BP 123 / 85; Pulse 91; Resp 20; Temp 98.2; Pulse Ox 93% on R/A; Weight 67.59 kg; Height sv 5 ft. 5 in. (165.10 cm); 13:15 aa5 13:17 BP 103 / 74; Pulse 87; Resp 16 S; Pulse Ox 96% on 2 lpm NC; aa5 13:35 BP 91 / 68; Pulse 86; Resp 16 S; Pulse Ox 96% on 2 lpm NC; aa5 14:50 BP 128 / 87; Pulse 82; Resp 16 S; Temp 97.8(TE); Pulse Ox 96% on 2 lpm NC; aa5 15:36 BP 106 / 83; Pulse 80; Resp 18 S; Pulse Ox 97% on 2 lpm NC; aa5 16:30 BP 106 / 80; Pulse 80; Resp 16 S; Temp 97.8(TE); Pulse Ox 97% on 2 lpm NC; aa5 12:39 Body Mass Index 24.80 (67.59 kg, 165.10 cm) sv 13:15 O2 sat fluctuating at 89% to 91% RA. Pt placed on oxygen and GYMNASIUM TEACHER notified. aa5 ED Course: 12:29 Patient arrived in ED. as 12:39 Triage completed. sv 12:40 Arm band placed on. sv 12:42 Humberto Murguia, GYMNASIUM TEACHER is PHCP. pm1 12:42 Chris Kruse MD is Attending Physician. pm1 13:00 Lexi Garcia, DEB is Primary Nurse. aa5 13:00 Patient has correct armband on for positive identification. Placed in gown. Bed in low aa5 position. Call light in reach. Side rails up X2. Pulse ox on. NIBP on. 13:10 Initial lab(s) drawn, by me, sent to lab. Inserted saline lock: 22 gauge in left aa5 forearm, using aseptic technique. Blood collected. 13:26 Radiology exam delayed due to lab results not completed at this time. (BUN/Creatinine). mw3 13:48 Chest Pa And Lat (2 Views) XRAY In Process Unspecified. EDMS 13:58 CT completed. Patient tolerated procedure well. Patient moved back from CT. mw3 13:59 CT Abd/Pelvis - IV Contrast Only In Process Unspecified. EDMS 16:50 No provider procedures requiring assistance completed. Patient transferred, IV remains aa5 in place. Administered Medications: 13:15 Drug: Zofran 4 mg Route: IVP; Site: left forearm; aa5 16:33 Follow up: Response: No adverse reaction bp 13:17 Drug: morphine 4 mg Route: IVP; Site: left forearm; aa5 16:33 Follow up: Response: Pain is decreased bp 14:52 Drug: NS 0.9% 500 ml Route: IV; Rate: bolus; Site: left forearm; aa5 16:32 Follow up: IV Status: Completed infusion; IV Intake: 500ml bp 16:20 Drug: NS 0.9% 1000 ml Route: IV; Rate: 100 ml/hr; Site: right antecubital; bp 16:50 Follow up: IV Status: Infusion continued upon transfer aa5 16:32 Drug: fentaNYL (PF) 25 mcg Route: IVP; Site: left forearm; bp 16:50 Follow up: Response: No adverse reaction; Pain is decreased aa5 Intake: 16:32 IV: 500ml; Total: 500ml. bp Outcome: 14:41 ER care complete, transfer ordered by MD. pm1 16:50 Transferred by ground EMS to [facility], Transfer form completed. aa5 X-rays sent w/ patient. Note: Report given to [facility] 16:50 Condition: stable 16:50 Discharge instructions given to patient, significant other, Instructed on the need for transfer, Demonstrated understanding of instructions. 16:58 Patient left the ED. aa5 Signatures: Dispatcher [employer] EDMS Kely Schmitz RN RN sv Martinez, Amelia as Calderon, Audri, RN RN aa5 Humberto Murguia, PERRI GYMNASIUM TEACHER pm1 James Ramos RN RN bp Adwoa Alex mw3 Corrections: (The following items were deleted from the chart) 12:40 12:39 Pulse 91bpm; Resp 20bpm; Temp 98.2F; 67.59 kg; Height 5 ft. 5 in.; BMI: 24.7; sv sv 14:53 14:50 BP 128 / 87; Pulse 82bpm; Resp 16bpm; Spontaneous; Pulse Ox 96% 2 lpm Nasal aa5 Cannula; Temp 98.7F Temporal; aa5
[2019-07-02] MEDS ORDERED: NA CHLORIDE 0.9% 500 ML ONE (14:49)
[2019-07-02] MEDS ORDERED: NA CHLORIDE 0.9% 1,000 ML ONE (16:23)
[2019-07-02] MEDS ORDERED: FENTANYL CITR 100 MCG/2 ML ONE (16:31)
[2019-07-02 18:20] VITALS: TEMP 97.8
[2019-07-02 18:22] VITALS: BP 106/83; O2SAT 97
== END 2019-07-02 16:58 | disposition short-term general hospital (02) ==
LOC: ER 12:28
DX: K83.1 Obstruction of bile duct (principal); R17 Unspecified jaundice; R94.5 Abnormal results of liver function studies; I10 Essential (primary) hypertension; F17.210 Nicotine dependence, cigarettes, uncomplicated; Z85.09 Personal history of malignant neoplasm of other digestive organs
CPT/HCPCS: 96361; 85025; 80048; 36415; 82140; 85610; 80076; 83690; 74177; 71046; 96375; 96374; 99285; Q9967; J3010; J7040; J7030; J2405; 81003; 81015

== ENCOUNTER 2019-09-21 10:29 | Emergency (ER) | payer BC ==
--- NOTE | 2019-09-21 12:44 | RAD REPORT ---
EXAM DESCRIPTION: RAD - Abdomen 1 View (KUB) - 09/21/2019 12:32 pm CLINICAL HISTORY: Abdomen pain. FINDINGS: The bowel gas pattern is unremarkable. Moderate amount of stool is seen within the left: Percutaneous tube right upper quadrant.
[2019-09-21] MEDS ORDERED: MAGNESIUM CITRATE 300 ML BOT ONE (13:26)
[2019-09-21] MEDS ORDERED: LEVALBUTEROL 1.25 MG/3 ML NEB ONE (14:07)
[2019-09-21] MEDS ORDERED: IPRATROPIUM BROM 0.5MG/2.5ML ONE (14:07)
--- NOTE | 2019-09-21 14:23 | ER ---
Nurse's Notes [facility] Name: Kristal Gaspar Age: 58 yrs Sex: Female : 1960 Arrival Date: 09/21/2019 Time: 10:31 Bed 27 Private MD: Diagnosis: Constipation Presentation: 09/20 11:21 Chief complaint: Patient states: Constipation for 4 days. Been on suppositories and ca1 enemas, but nothing is working. Coronavirus screen: The patient has NOT traveled to a country currently being monitored by the [facility] within the last 14 days. The patient has NOT had contact with any known and/or suspected case of coronavirus. Ebola Screen: Patient negative for fever greater than or equal to 101.5 degrees Fahrenheit, and additional compatible Ebola Virus Disease symptoms Patient denies exposure to infectious person. Patient denies travel to an Ebola-affected area in the 21 days before illness onset. No symptoms or risks identified at this time. Initial Sepsis Screen: Does the patient meet any 2 criteria? No. Patient's initial sepsis screen is negative. Does the patient have a suspected source of infection? No. Patient's initial sepsis screen is negative. Risk Assessment: Do you want to hurt yourself or someone else? Patient reports no desire to harm self or others. Onset of symptoms was September 21, 2019. 11:21 Method Of Arrival: Wheelchair ca1 11:21 Acuity: GIULIA 3 ca1 Triage Assessment: 11:23 General: Appears in no apparent distress. comfortable, Behavior is calm. Pain: ca1 Complains of pain in gluteal cleft. GI:. Historical: - Allergies: 11:23 No Known Allergies; ca1 - Home Meds: 11:23 Flexeril Oral [Active]; Hydrocodone-Ibuprofen Oral [Active]; ca1 - PMHx: 11:23 Degenerative disc disease; Gallbladder cancer; Hyperlipidemia; Hypertension; low back ca1 pain; - PSHx: 11:23 Appendectomy; Cholecystectomy; ca1 - Immunization history:: Adult Immunizations up to date, Pneumococcal vaccine is not up to date, Flu vaccine is up to date. - Social history:: Smoking status: Patient reports the use of cigarette tobacco products, smokes one-half pack cigarettes per day. Screenin:10 Abuse screen: Denies threats or abuse. Denies injuries from another. Nutritional wh screening: No deficits noted. Tuberculosis screening: No symptoms or risk factors identified. Fall Risk None identified. Assessment: 14:10 General: Appears in no apparent distress. Behavior is calm, cooperative, appropriate wh for age. Pain: Denies pain. Neuro: Level of Consciousness is awake, alert, obeys commands, Oriented to person, place, time, situation, Appropriate for age. Cardiovascular: Heart tones S1 S2. Respiratory: Airway is patent Respiratory effort is even, unlabored, Respiratory pattern is regular, symmetrical, Breath sounds are diminished bilaterally. GI: Abdomen is flat, non-distended, Bowel sounds present X 4 quads. Abd is soft and non tender X 4 quads. GI: Reports constipation. : No signs and/or symptoms were reported regarding the genitourinary system. EENT: No signs and/or symptoms were reported regarding the EENT system. Derm: Skin is intact, is healthy with good turgor, Skin is pink, warm \T\ dry. normal. Musculoskeletal: Circulation, motion, and sensation intact. 14:23 Reassessment: Pt had one large bowel movement, states feeling better. wh Vital Signs: 11:21 BP 96 / 65; Pulse 117; Resp 19; Temp 97.2(O); Pulse Ox 92% on R/A; Weight 59.87 kg (R); ca1 Height 5 ft. 2 in. (157.48 cm) (R); 12:45 BP 82 / 62 LA (auto/reg); Pulse 106; Pulse Ox 89% on R/A; jp3 12:45 BP 91 / 67; Pulse 100; Pulse Ox 95% on 2 lpm NC; jp3 14:00 BP 115 / 79; Pulse 99; Resp 18; Pulse Ox 96% on 2 lpm NC; wh 11:21 Body Mass Index 24.14 (59.87 kg, 157.48 cm) ca1 ED Course: 10:31 Patient arrived in ED. mr 11:22 Triage completed. ca1 11:23 Arm band placed on right wrist. ca1 11:59 Andra Ibarra FNP-C is PHCP. kb 11:59 Shan Nguyen MD is Attending Physician. kb 12:25 Jaimie Patton, RN is Primary Nurse. iw 12:32 Abdomen 1 View (KUB) XRAY In Process Unspecified. EDMS 12:45 Safety checks: Family/friend present: yes. Bed in low position. Call light in reach. jp3 Side rails up X 1. Side rails up X2. Warm blanket given. Verbal reassurance given. Pulse ox on. NIBP on. 12:45 Oxygen administration via nasal cannula \T\ 2L/min Response to oxygen therapy: symptoms jp3 improved. 14:27 No provider procedures requiring assistance completed. Patient did not have IV access during this emergency room visit. Administered Medications: 13:45 Drug: Magnesium Citrate Liquid 300 ml Route: PO; 14:30 Follow up: Response: No adverse reaction; Marked relief of symptoms 14:23 Drug: Xopenex (3) 1.25 mg Route: Inhalation; 14:30 Follow up: Response: No adverse reaction 14:23 Drug: AtroVENT Aerosol 0.5 mg Route: Inhalation; 14:29 Follow up: Response: No adverse reaction Outcome: 14:22 Discharge ordered by . kb 14:43 Discharged to home via wheelchair, with family. 14:43 Condition: stable 14:43 Discharge instructions given to patient, family, Instructed on discharge instructions, follow up and referral plans. POC Demonstrated understanding of instructions, follow-up care, POC 14:43 Patient left the ED. Signatures: Dispatcher [employer] EDMS Andra Ibarra, JORDAN HOLLINSP-Tisha Gloria Irene, RN RN Delonte Oreilly Fredy Correa jp3 Deana Hernandez RN RN ca1
--- NOTE | 2019-09-21 14:23 | EDPHYS ---
Physician Documentation [facility] Name: Kristal Gaspar Age: 58 yrs Sex: Female : 1960 Arrival Date: 09/21/2019 Time: 10:31 Bed 27 Private MD: ED Physician Shan Nguyen HPI: 09/20 12:37 This 58 yrs old Black Female presents to ER via Wheelchair with complaints of kb Constipation. 12:37 The patient presents with constipation. Onset: The symptoms/episode began/occurred 4 kb day(s) ago. The symptoms do not radiate. Associated signs and symptoms: Pertinent positives: constipation, Pertinent negatives: nausea, vomiting, and diarrhea, fever, pain. Modifying factors: The symptoms are alleviated by nothing, the symptoms are aggravated by nothing. The patient has not experienced similar symptoms in the past. The patient has been recently seen by a physician:. Pt c/o constipation for 4 days. States she has used enemas, suppositories and has "dug some out," but still constipated. Historical: - Allergies: 11:23 No Known Allergies; ca1 - Home Meds: 11:23 Flexeril Oral [Active]; Hydrocodone-Ibuprofen Oral [Active]; ca1 - PMHx: 11:23 Degenerative disc disease; Gallbladder cancer; Hyperlipidemia; Hypertension; low back ca1 pain; - PSHx: 11:23 Appendectomy; Cholecystectomy; ca1 - Immunization history:: Adult Immunizations up to date, Pneumococcal vaccine is not up to date, Flu vaccine is up to date. - Social history:: Smoking status: Patient reports the use of cigarette tobacco products, smokes one-half pack cigarettes per day. ROS: 12:35 Constitutional: Negative for fever, chills, and weight loss, Cardiovascular: Negative kb for chest pain, palpitations, and edema, Respiratory: Negative for shortness of breath, cough, wheezing, and pleuritic chest pain, Back: Negative for injury and pain, : Negative for injury, bleeding, discharge, and swelling, MS/Extremity: Negative for injury and deformity, Skin: Negative for injury, rash, and discoloration, Neuro: Negative for headache, weakness, numbness, tingling, and seizure. 12:35 Abdomen/GI: Positive for constipation, Negative for abdominal pain, nausea, vomiting, and diarrhea. Exam: 12:36 Constitutional: This is a well developed, well nourished patient who is awake, alert, kb and in no acute distress. Head/Face: Normocephalic, atraumatic. Chest/axilla: Normal chest wall appearance and motion. Nontender with no deformity. No lesions are appreciated. Cardiovascular: Regular rate and rhythm with a normal S1 and S2. No gallops, murmurs, or rubs. Normal PMI, no JVD. No pulse deficits. Respiratory: Lungs have equal breath sounds bilaterally, clear to auscultation and percussion. No rales, rhonchi or wheezes noted. No increased work of breathing, no retractions or nasal flaring. Abdomen/GI: Soft, non-tender, with normal bowel sounds. No distension or tympany. No guarding or rebound. No evidence of tenderness throughout. Drain from recent surgery noted to RUQ Back: No spinal tenderness. No costovertebral tenderness. Full range of motion. Skin: Warm, dry with normal turgor. Normal color with no rashes, no lesions, and no evidence of cellulitis. MS/ Extremity: Pulses equal, no cyanosis. Neurovascular intact. Full, normal range of motion. Neuro: Awake and alert, GCS 15, oriented to person, place, time, and situation. Cranial nerves II-XII grossly intact. Motor strength 5/5 in all extremities. Sensory grossly intact. Cerebellar exam normal. Normal gait. 13:59 Abdomen/GI: Rectal exam: is unremarkable, fecal impaction, is not appreciated, the exam kb is chaperoned by the nurse. Vital Signs: 11:21 BP 96 / 65; Pulse 117; Resp 19; Temp 97.2(O); Pulse Ox 92% on R/A; Weight 59.87 kg (R); ca1 Height 5 ft. 2 in. (157.48 cm) (R); 12:45 BP 82 / 62 LA (auto/reg); Pulse 106; Pulse Ox 89% on R/A; jp3 12:45 BP 91 / 67; Pulse 100; Pulse Ox 95% on 2 lpm NC; jp3 14:00 BP 115 / 79; Pulse 99; Resp 18; Pulse Ox 96% on 2 lpm NC; wh 11:21 Body Mass Index 24.14 (59.87 kg, 157.48 cm) ca1 MDM: 12:00 Patient medically screened. kb 12:35 Data reviewed: vital signs, nurses notes. kb 13:58 Data interpreted: Pulse oximetry: on room air is 92 %. Interpretation: pt has COPD. kb Counseling: I had a detailed discussion with the patient and/or guardian regarding: the historical points, exam findings, and any diagnostic results supporting the discharge/admit diagnosis, radiology results, the need for outpatient follow up, a family practitioner, to return to the emergency department if symptoms worsen or persist or if there are any questions or concerns that arise at home. 09/20 11:47 Order name: Abdomen 1 View (KUB) XRAY; Complete Time: 12:59 kb Administered Medications: 13:45 Drug: Magnesium Citrate Liquid 300 ml Route: PO; 14:30 Follow up: Response: No adverse reaction; Marked relief of symptoms 14:23 Drug: Xopenex (3) 1.25 mg Route: Inhalation; 14:30 Follow up: Response: No adverse reaction 14:23 Drug: AtroVENT Aerosol 0.5 mg Route: Inhalation; 14:29 Follow up: Response: No adverse reaction Disposition: 16:19 Co-signature as Attending Physician, Shan Nguyen MD I agree with the assessment and kdr plan of care. Disposition: 09/21/19 14:22 Discharged to Home. Impression: Constipation. - Condition is Stable. - Discharge Instructions: Constipation, Adult, [id number]. - Medication Reconciliation Form, Thank You Letter, Antibiotic Education, Prescription Opioid Use form. - Follow up: Emergency Department; When: As needed; Reason: Worsening of condition. Follow up: Private Physician; When: 2 - 3 days; Reason: Recheck today's complaints, Continuance of care, Re-evaluation by your physician. Signatures: Dispatcher [employer] EDMS Andra Ibarra, STULL HEWER-C FARIBA-Shan Guerrero MD MD kdr Williams, Irene, RN RN iw Habalo, Winsy wh Acob, Cheryl, RN RN ca1 Corrections: (The following items were deleted from the chart) 12:37 12:36 Constitutional: This is a well developed, well nourished patient who is awake, kb alert, and in no acute distress. Head/Face: Normocephalic, atraumatic. Chest/axilla: Normal chest wall appearance and motion. Nontender with no deformity. No lesions are appreciated. Cardiovascular: Regular rate and rhythm with a normal S1 and S2. No gallops, murmurs, or rubs. Normal PMI, no JVD. No pulse deficits. Respiratory: Lungs have equal breath sounds bilaterally, clear to auscultation and percussion. No rales, rhonchi or wheezes noted. No increased work of breathing, no retractions or nasal flaring. Abdomen/GI: Soft, non-tender, with normal bowel sounds. No distension or tympany. No guarding or rebound. No evidence of tenderness throughout. Back: No spinal tenderness. No costovertebral tenderness. Full range of motion. Skin: Warm, dry with normal turgor. Normal color with no rashes, no lesions, and no evidence of cellulitis. MS/ Extremity: Pulses equal, no cyanosis. Neurovascular intact. Full, normal range of motion. Neuro: Awake and alert, GCS 15, oriented to person, place, time, and situation. Cranial nerves II-XII grossly intact. Motor strength 5/5 in all extremities. Sensory grossly intact. Cerebellar exam normal. Normal gait. kb 14:43 14:22 09/21/2019 14:22 Discharged to Home. Impression: Constipation. Condition is wh Stable. Forms are Medication Reconciliation Form, Thank You Letter, Antibiotic Education, Prescription Opioid Use. Follow up: Emergency Department; When: As needed; Reason: Worsening of condition. Follow up: Private Physician; When: 2 - 3 days; Reason: Recheck today's complaints, Continuance of care, Re-evaluation by your physician. kb
[2019-09-21 14:59] VITALS: TEMP 97.2
[2019-09-21 15:03] VITALS: BP 115/79; O2SAT 96
== END 2019-09-21 14:43 | disposition home or self-care (01) ==
LOC: ER 10:29
DX: K59.00 Constipation, unspecified (principal)
CPT/HCPCS: 74018; 99284

== ENCOUNTER 2020-06-26 09:41 | Emergency (ER) | payer BC ==
[2020-06-26 11:11] LABS: Basophils % 0.6 % (0-1.3); Hematocrit 47.1 % (36.0-45.0); Lymphocytes % 18.5 % (15.3-44.8); MPV 9.6 fL (7.6-11.3); Protime INR 1.18; RBC Red Blood Cell Count 4.84 M/uL (3.86-4.86)
[2020-06-26 11:37] LABS: ALT/SGPT 22 U/L (12-78); Albumin 3.4 g/dL (3.4-5.0); Alkaline Phosphatase 120 U/L (45-117); BUN Blood Urea Nitrogen 7 mg/dL (7-18); Bicarbonate 26 mmol/L (21-32); Bilirubin Direct 0.2 mg/dL (0-0.2); Bilirubin Total 1.1 mg/dL (0.2-1.0); Glucose Level 93 mg/dL (74-106); NT PRO-BNP 4308 pg/mL (<125); Protein, Total 8.6 g/dL (6.4-8.2); Sodium Level 138 mmol/L (136-145); Troponin (Emerg Dept Use Only) < 0.02 ng/mL (0.0-0.045)
[2020-06-26 11:38] LABS: AST/SGOT 31 U/L (15-37); Magnesium 2.4 mg/dL (1.8-2.4); Potassium 3.7 mmol/L (3.5-5.1)
--- NOTE | 2020-06-26 12:42 | RAD REPORT ---
EXAM DESCRIPTION: RAD - Chest Single View - 06/26/2020 12:32 pm CLINICAL HISTORY: COUGH COMPARISON: June 2019 TECHNIQUE: AP portable chest image was obtained 06/26/2020 12:32 pm . FINDINGS: Lung volumes are reduced compared to the prior study. Patient has extensive interstitial f ibrotic pattern in the mid and lower lung bowman. When adjusting for the shallow inspiration, pattern is not clearly different. Severity of disease could mask early edema or infiltrate. Heart size is pr ominent but stable. No acute vascular engorgement. No measurable pleural effusion and no pneumothorax . No acute bony abnormality seen. No acute aortic findings suspected. IMPRESSION: Extensive chronic interstitial lung disease not clearly different from 1 year earlier.
--- NOTE | 2020-06-26 13:21 | RAD REPORT ---
EXAM DESCRIPTION: US - Extrem Venous W Compress Geoff - 06/26/2020 1:02 pm CLINICAL HISTORY: Pain;Swelling COMPARISON: None. TECHNIQUE: Real-time sonographic evaluation of the bilateral lower extremity common femoral, superfi cial femoral, popliteal and posterior tibial veins was performed. FINDINGS: Normal compressibility, flow augmentation, phasic flow and spontaneous flow are identified in the left and right lower extremity common femoral, superficial femoral, popliteal and posterior t ibial veins. No intraluminal filling defects seen. IMPRESSION: No DVT in either lower extremity.
--- NOTE | 2020-06-26 13:32 | ER ---
Nurse's Notes [facility] Name: Kristal Gaspar Age: 59 yrs Sex: Female : 1960 Arrival Date: 06/26/2020 Time: 09:43 Bed 17 Private MD: Diagnosis: Edema, unspecified Presentation: 06/26 10:08 Chief complaint: Patient states: jn leg swelling that began Thursday. pt denies cough, aa5 denies SOB. Pt reports pain to jn legs but left leg is worse. 10:08 Coronavirus screen: Client denies travel out of the [place] in the last 14 days. At this aa5 time, the client does not indicate any symptoms associated with coronavirus-19. Ebola Screen: Patient negative for fever greater than or equal to 101.5 degrees Fahrenheit, and additional compatible Ebola Virus Disease symptoms. Initial Sepsis Screen: Does the patient meet any 2 criteria? No. Patient's initial sepsis screen is negative. Does the patient have a suspected source of infection? No. Patient's initial sepsis screen is negative. Risk Assessment: Do you want to hurt yourself or someone else? Patient reports no desire to harm self or others. Onset of symptoms was June 2020. 10:08 Acuity: GIULIA 3 aa5 10:08 Method Of Arrival: Wheelchair aa5 Historical: - Allergies: 10:12 No Known Allergies; aa5 - Home Meds: 10:12 Flexeril Oral [Active]; Hydrocodone-Ibuprofen Oral [Active]; aa5 - PMHx: 10:12 Degenerative disc disease; Gallbladder cancer; Hyperlipidemia; Hypertension; low back aa5 pain; Headaches; - PSHx: 10:12 Appendectomy; Cholecystectomy; aa5 - Immunization history:: Adult Immunizations unknown. - Social history:: Smoking status: Patient reports the use of cigarette tobacco products, smokes one-half pack cigarettes per day. Screenin:25 Abuse screen: Denies threats or abuse. Denies injuries from another. Nutritional ca1 screening: No deficits noted. Tuberculosis screening: No symptoms or risk factors identified. Fall Risk IV access (20 points). Assessment: 10:25 General: Appears in no apparent distress. comfortable, Behavior is calm, cooperative, ca1 appropriate for age. Pain: Complains of pain in left leg and right leg Pain currently is 5 out of 10 on a pain scale. Pain began 5 days ago. Neuro: Level of Consciousness is awake, alert, obeys commands, Oriented to person, place, time, situation. Cardiovascular: Heart tones S1 S2 present Capillary refill < 3 seconds Patient's skin is warm and dry. Cardiovascular: Edema is 2+ to left midcalf, left ankle, left foot, left toes, right midcalf, right ankle, right foot and right toes Rhythm is sinus rhythm. Respiratory: Airway is patent Respiratory effort is even, unlabored, Respiratory pattern is regular, symmetrical, Breath sounds are clear bilaterally. GI: Abdomen is flat, non-distended, Bowel sounds present X 4 quads. Abd is soft and non tender X 4 quads. : No signs and/or symptoms were reported regarding the genitourinary system. EENT: No signs and/or symptoms were reported regarding the EENT system. Derm: Skin is intact, is healthy with good turgor, Skin is pink, warm \T\ dry. Musculoskeletal: Circulation, motion, and sensation intact. Capillary refill < 3 seconds, Swelling present in right leg and left leg. 11:30 Reassessment: Patient appears in no apparent distress at this time. Patient and/or ca1 family updated on plan of care and expected duration. Pain level reassessed. Patient is alert, oriented x 3, equal unlabored respirations, skin warm/dry/pink. 13:06 Reassessment: Patient appears in no apparent distress at this time. Patient is alert, ca1 oriented x 3, equal unlabored respirations, skin warm/dry/pink. back from US. Pending result. 13:50 Reassessment: Patient appears in no apparent distress at this time. Patient is alert, ca1 oriented x 3, equal unlabored respirations, skin warm/dry/pink. 14:10 Reassessment: Patient appears in no apparent distress at this time. Patient is alert, ca1 oriented x 3, equal unlabored respirations, skin warm/dry/pink. Vital Signs: 10:08 BP 99 / 67; Pulse 102; Resp 18 S; Temp 98.1(O); Pulse Ox 91% on R/A; Weight 58.97 kg aa5 (R); Height 5 ft. 2 in. (157.48 cm) (R); Pain 4/10; 11:30 BP 103 / 76; Pulse 97; Resp 20 S; Pulse Ox 92% on R/A; ca1 13:09 BP 121 / 96; Pulse 97; Resp 20 S; Pulse Ox 95% on R/A; ca1 13:50 BP 129 / 95; Pulse 97; Resp 20 S; Pulse Ox 97% on R/A; ca1 14:10 BP 118 / 91; Pulse 95; Resp 18 S; Pulse Ox 97% on R/A; ca1 10:08 Body Mass Index 23.78 (58.97 kg, 157.48 cm) aa5 ED Course: 09:43 Patient arrived in ED. ag5 10:12 Arm band placed on Patient placed in an exam room, on a stretcher. aa5 10:14 Triage completed. aa5 10:21 Andra Ibarra FNP-C is PHCP. kb 10:21 Rosa Marc MD is Attending Physician. kb 10:25 Patient has correct armband on for positive identification. Placed in gown. Bed in low ca1 position. Call light in reach. Side rails up X2. site monitor on. Pulse ox on. NIBP on. Warm blanket given. Head of bed elevated. 10:25 No provider procedures requiring assistance completed. ca1 10:32 Deana Hernandez, RN is Primary Nurse. ca1 10:51 Initial lab(s) drawn, by me, sent to lab. Inserted saline lock: 22 gauge in right ca1 forearm, using aseptic technique. Blood collected. 12:40 Chest Single View In Process Unspecified. EDMS 12:51 US Extremity Venous W Compression Jn In Process Unspecified. EDMS 14:11 IV discontinued, intact, bleeding controlled, No redness/swelling at site. Pressure ca1 dressing applied. Administered Medications: 13:50 Drug: Lasix 40 mg Route: IVP; Site: right forearm; ca1 14:02 Follow up: Urine output 200 ml; Response: No adverse reaction ca1 Output: 14:02 Urine: 200ml; Total: 200ml. ca1 Outcome: 13:31 Discharge ordered by . kb 14:11 Discharged to home ambulatory, with significant other. ca1 14:11 Condition: stable 14:11 Discharge instructions given to patient, Instructed on discharge instructions, follow up and referral plans. medication usage, Demonstrated understanding of instructions, follow-up care, medications, Prescriptions given X 1. 14:11 Patient left the ED. ca1 Signatures: Dispatcher [employer] Andra Garcia, PULLMAN CONDUCTOR-C PULLMAN CONDUCTOR-Ckb Lexi Garcia, RN RN aa5 Deana Hernandez RN RN ca1 Man Harris ag5
--- NOTE | 2020-06-26 13:32 | EDPHYS ---
Physician Documentation [facility] Name: Kristal Gaspar Age: 59 yrs Sex: Female : 1960 Arrival Date: 06/26/2020 Time: 09:43 Bed 17 Private MD: ED Physician Rosa Marc HPI: 06/26 10:41 This 59 yrs old Black Female presents to ER via Wheelchair with complaints of Feet kb Swelling, Leg Swelling. 10:41 The patient presents with swelling. The complaints affect the right leg and left leg. kb Context: The problem was sustained at home, resulted from an unknown cause, the patient can fully bear weight, the patient is able to ambulate. Onset: The symptoms/episode began/occurred 5 day(s) ago. Modifying factors: The symptoms are alleviated by nothing. the symptoms are aggravated by nothing. Associated signs and symptoms: Pertinent positives: swelling, Pertinent negatives calf tenderness, fever, nausea, numbness, rash, tingling, vomiting, warmth, weakness. Treatment prior to arrival includes: no previous treatment. Severity of symptoms: At their worst the symptoms were moderate, in the emergency department the symptoms are unchanged. The patient has not experienced similar symptoms in the past. The patient has not recently seen a physician. Historical: - Allergies: 10:12 No Known Allergies; aa5 - Home Meds: 10:12 Flexeril Oral [Active]; Hydrocodone-Ibuprofen Oral [Active]; aa5 - PMHx: 10:12 Degenerative disc disease; Gallbladder cancer; Hyperlipidemia; Hypertension; low back aa5 pain; Headaches; - PSHx: 10:12 Appendectomy; Cholecystectomy; aa5 - Immunization history:: Adult Immunizations unknown. - Social history:: Smoking status: Patient reports the use of cigarette tobacco products, smokes one-half pack cigarettes per day. ROS: 10:40 Constitutional: Negative for fever, chills, and weight loss, Abdomen/GI: Negative for kb abdominal pain, nausea, vomiting, diarrhea, and constipation, MS/Extremity: Negative for injury and deformity, Skin: Negative for injury, rash, and discoloration, Neuro: Negative for headache, weakness, numbness, tingling, and seizure. 10:40 Cardiovascular: Positive for edema. 10:40 Respiratory: Positive for shortness of breath. Exam: 10:39 Constitutional: This is a well developed, well nourished patient who is awake, alert, kb and in no acute distress. Head/Face: Normocephalic, atraumatic. Chest/axilla: Normal chest wall appearance and motion. Nontender with no deformity. No lesions are appreciated. Cardiovascular: Regular rate and rhythm with a normal S1 and S2. No gallops, murmurs, or rubs. Normal PMI, no JVD. No pulse deficits. Respiratory: Lungs have equal breath sounds bilaterally, clear to auscultation and percussion. No rales, rhonchi or wheezes noted. No increased work of breathing, no retractions or nasal flaring. Abdomen/GI: Soft, non-tender, with normal bowel sounds. No distension or tympany. No guarding or rebound. No evidence of tenderness throughout. Skin: Warm, dry with normal turgor. Normal color with no rashes, no lesions, and no evidence of cellulitis. Neuro: Awake and alert, GCS 15, oriented to person, place, time, and situation. Cranial nerves II-XII grossly intact. Motor strength 5/5 in all extremities. Sensory grossly intact. Cerebellar exam normal. Normal gait. 10:39 Cardiovascular: Edema: pedal edema, that is moderate, 2+, ankle edema, that is moderate, 2+. 10:39 Musculoskeletal/extremity: Extremities: grossly normal except: noted in the right leg and left leg: swelling, ROM: intact in all extremities, Circulation is intact in all extremities. Sensation intact. Weight bearing: able to fully bear weight. 10:42 ECG was reviewed by the Attending Physician. kb Vital Signs: 10:08 BP 99 / 67; Pulse 102; Resp 18 S; Temp 98.1(O); Pulse Ox 91% on R/A; Weight 58.97 kg aa5 (R); Height 5 ft. 2 in. (157.48 cm) (R); Pain 4/10; 11:30 BP 103 / 76; Pulse 97; Resp 20 S; Pulse Ox 92% on R/A; ca1 13:09 BP 121 / 96; Pulse 97; Resp 20 S; Pulse Ox 95% on R/A; ca1 13:50 BP 129 / 95; Pulse 97; Resp 20 S; Pulse Ox 97% on R/A; ca1 14:10 BP 118 / 91; Pulse 95; Resp 18 S; Pulse Ox 97% on R/A; ca1 10:08 Body Mass Index 23.78 (58.97 kg, 157.48 cm) aa5 MDM: 10:21 Patient medically screened. kb 10:41 Data reviewed: vital signs, nurses notes. Data interpreted: Pulse oximetry: on room air kb is 91 %. Interpretation: borderline. 13:29 Counseling: I had a detailed discussion with the patient and/or guardian regarding: the kb historical points, exam findings, and any diagnostic results supporting the discharge/admit diagnosis, lab results, radiology results, the need for outpatient follow up, a cable placer, a family practitioner, to return to the emergency department if symptoms worsen or persist or if there are any questions or concerns that arise at home. Physician consultation: Harinder Jimenez DO was contacted at 13:29, regarding consult, patient's condition, recommends outpatient follow up. ED course: Pt educated to have labs repeated in a week to check renal function after initiation of lasix. Educated to follow up with cardiology for further workup to confirm CHF. 1500cc fluid restriction and daily weights recommended. 12 10:27 Order name: Basic Metabolic Panel 06/26 10:27 Order name: CBC with Diff 06/26 10:27 Order name: LFT's 06/26 10:27 Order name: Magnesium 06/26 10:27 Order name: NT PRO-BNP 06/26 10:27 Order name: PT-INR 06/26 10:27 Order name: Troponin (emerg Dept Use Only) 06/26 11:06 Order name: Protime (+INR); Complete Time: 11:17 EDTX 06/26 11:11 Order name: CBC with Automated Diff; Complete Time: 11:17 EDTX 06/26 11:11 Order name: CBC with Automated Diff; Complete Time: 11:17 EDMS 06/26 11:37 Order name: Basic Metabolic Panel EDTX 06/26 11:37 Order name: Liver (Hepatic) Function EDTX 06/26 11:37 Order name: Troponin (Emerg Dept Use Only) EDTX 06/26 11:37 Order name: NT PRO-BNP EDTX 06/26 10:27 Order name: US Extremity Venous W Compression Geoff; Complete Time: 13:24 kb 06/26 10:27 Order name: EKG; Complete Time: 12:39 kb 06/26 10:27 Order name: Cardiac monitoring; Complete Time: 10:51 kb 06/26 10:27 Order name: EKG - Nurse/Tech; Complete Time: 10:51 kb 06/26 10:27 Order name: IV Saline Lock; Complete Time: 10:51 kb 06/26 10:27 Order name: Labs collected and sent; Complete Time: 10:51 kb 06/26 10:27 Order name: O2 Per Protocol; Complete Time: 10:51 kb 06/26 11:37 Order name: Basic Metabolic Panel; Complete Time: 11:43 EDMS 06/26 11:38 Order name: Liver (Hepatic) Function; Complete Time: 11:43 EDMS 06/26 11:38 Order name: Troponin (Emerg Dept Use Only); Complete Time: 11:43 EDMS 06/26 11:38 Order name: NT PRO-BNP; Complete Time: 11:43 EDMS 06/26 11:38 Order name: Magnesium; Complete Time: 11:43 EDMS 06/26 11:51 Order name: Chest Single View; Complete Time: 12:45 EDMS 06/26 10:27 Order name: O2 Sat Monitoring; Complete Time: 10:51 kb EC:42 Rate is 97 beats/min. Rhythm is regular. Right axis deviation noted. [place] interval is kb normal at 154 msec. QRS interval is normal at 90 msec. QT interval is normal at 382 msec. Administered Medications: 13:50 Drug: Lasix 40 mg Route: IVP; Site: right forearm; ca1 14:02 Follow up: Urine output 200 ml; Response: No adverse reaction ca1 Disposition: 18:33 Co-signature as Attending Physician, Rosa Marc MD. ma2 Disposition: 06/26/20 13:31 Discharged to Home. Impression: Edema, unspecified. - Condition is Stable. - Discharge Instructions: Heart Failure, [id number], Peripheral Edema. - Prescriptions for Lasix 40 mg Oral Tablet - take 1 tablet by ORAL route once daily for 30 days; 30 tablet. - Medication Reconciliation Form, Thank You Letter, Antibiotic Education, Prescription Opioid Use form. - Follow up: Emergency Department; When: As needed; Reason: Worsening of condition. Follow up: Private Physician; When: 2 - 3 days; Reason: Recheck today's complaints, Continuance of care, Re-evaluation by your physician. Signatures: Dispatcher [employer] EDTX Andra Ibarra, DINING ROOM BUSSER-C DINING ROOM BUSSER-Lexi Quintana, RN RN aa5 Rosa Marc MD MD ma2 Deana Hernandez RN RN ca1 Corrections: (The following items were deleted from the chart) 12:44 12:39 Chest Single View+RAD.RAD.BRZ ordered. [facility] 12:46 11:49 Extrem Venous W Compress Geoff ordered. [facility] 14:11 13:31 06/26/2020 13:31 Discharged to Home. Impression: Edema, unspecified. Condition is ca1 Stable. Forms are Medication Reconciliation Form, Thank You Letter, Antibiotic Education, Prescription Opioid Use. Follow up: Emergency Department; When: As needed; Reason: Worsening of condition. Follow up: Private Physician; When: 2 - 3 days; Reason: Recheck today's complaints, Continuance of care, Re-evaluation by your physician. kb
[2020-06-26] MEDS ORDERED: FUROSEMIDE 40 MG/4 ML VIAL ONE (13:59)
--- NOTE | 2020-06-27 07:16 | EKG ---
Test Date: 2020-06-26 Test Time: 10:35:59 Wire Rope Sling Maker: MARISELA MEASUREMENT RESULTS: Intervals: Rate: 97 UT: 154 QRSD: 90 QT: 382 QTc: 485 Lacey: P: 58 UT: 154 QRS: 115 T: 54 INTERPRETIVE STATEMENTS: Normal sinus rhythm Biatrial enlargement Right axis deviation Prolonged QT Abnormal ECG Compared to ECG 11/20/2017 17:19:44 Atrial abnormality now present Right-axis deviation now present Prolonged QT interval now present Sinus tachycardia no longer present Myocardial infarct finding no longer present Electronically Signed On 06-27-20 07:09:11 CMM OPERATOR by Travis Levine
== END 2020-06-26 14:11 | disposition home or self-care (01) ==
LOC: ER 09:41
DX: R60.9 Edema, unspecified (principal); I10 Essential (primary) hypertension; F17.210 Nicotine dependence, cigarettes, uncomplicated; Z85.89 Personal history of malignant neoplasm of other organs and systems
CPT/HCPCS: 93005; 85025; 80048; 36415; 83735; 85610; 80076; 84484; 83880; 71045; 93970; 96374; 99284; J1940

== ENCOUNTER 2020-06-30 10:21 | Emergency (ER) | payer BC ==
[2020-06-30 11:00] LABS: Absolute Lymphocytes (CBC) 1.3 K/uL (0.7-4.9); Basophils % 1.2 % (0-1.3); Hematocrit 45.9 % (36.0-45.0); Lymphocytes % 27.1 % (15.3-44.8); MPV 9.8 fL (7.6-11.3); RBC Red Blood Cell Count 4.74 M/uL (3.86-4.86)
[2020-06-30 11:18] LABS: Protime INR 1.15
[2020-06-30] MEDS ORDERED: ACETAMINOPHEN 500 MG TAB ONE (11:27)
--- NOTE | 2020-06-30 12:38 | RAD REPORT ---
EXAM DESCRIPTION: Arielle Single View06/30/2020 11:17 am CLINICAL HISTORY: Chest pain COMPARISON: June 26, 2020 FINDINGS: Moderate bilateral interstitial lung opacities appear chronic The heart is moderately enlarged IMPRESSION: No acute abnormalities displayed
[2020-06-30 13:17] LABS: ALT/SGPT 19 U/L (12-78); AST/SGOT 20 U/L (15-37); Albumin 3.4 g/dL (3.4-5.0); Alkaline Phosphatase 115 U/L (45-117); BUN Blood Urea Nitrogen 9 mg/dL (7-18); Bicarbonate 29 mmol/L (21-32); Bilirubin Direct 0.3 mg/dL (0-0.2); Bilirubin Total 0.9 mg/dL (0.2-1.0); Glucose Level 91 mg/dL (74-106); Magnesium 2.4 mg/dL (1.8-2.4); NT PRO-BNP 4405 pg/mL (<125); Potassium 3.6 mmol/L (3.5-5.1); Protein, Total 8.3 g/dL (6.4-8.2); Sodium Level 137 mmol/L (136-145); Troponin (Emerg Dept Use Only) < 0.02 ng/mL (0.0-0.045)
--- NOTE | 2020-06-30 14:23 | RAD REPORT ---
EXAM DESCRIPTION: CT - Head Brain Wo Cont - 06/30/2020 2:13 pm CLINICAL HISTORY: Headache COMPARISON: None. TECHNIQUE: Computed axial tomography of the head was obtained. IV contrast was not requested. All CT scans are performed using dose optimization technique as appropriate and may include automated exposure control or mA/KV adjustment according to patient size. FINDINGS: An intracranial bleed is not seen . The ventricles are normal in caliber. No extra-axial fluid collection is noted. Bilateral basal ganglia calcifications Fluid within the sinuses/ mastoids is not seen. IMPRESSION: No acute intracranial abnormality is seen. If patient's symptoms persist MRI of the bra in would be recommended.
--- NOTE | 2020-06-30 14:43 | ER ---
Nurse's Notes [facility] Name: Kristal Gaspar Age: 59 yrs Sex: Female : 1960 Arrival Date: 06/30/2020 Time: 10:23 Bed 2 Private MD: Diagnosis: Chest pain, unspecified;Shortness of breath Presentation: 06/30 10:21 Chief complaint: Chief complaint: EMS states: Pt. is 59 yr. old. A \T\ O x 4, c/o chest rb3 pain on the right side of her chest 01/26 that started about an hour and twently minutes ago, EMS administered Aspirin 324 mg x 1. Has a history of CHF. Also takes Lasix. BP 115/78, P 102, O2 2 L NC 98%, R 18, T 98.0. 12-Lead was normal. IV 22 G Left AC. 10:21 Coronavirus screen: At this time, the client does not indicate any symptoms associated rb3 with coronavirus-19. Ebola Screen: Patient denies travel to an Ebola-affected area in the 21 days before illness onset. Initial Sepsis Screen: Does the patient meet any 2 criteria? No. Patient's initial sepsis screen is negative. Does the patient have a suspected source of infection? No. Patient's initial sepsis screen is negative. Risk Assessment: Do you want to hurt yourself or someone else? Patient reports no desire to harm self or others. Onset of symptoms was June 30, 2020 at 09:00. 10:21 Method Of Arrival: EMS: [facility] rb3 10:21 Acuity: GIULIA 3 rb3 Triage Assessment: 10:21 General: Appears in no apparent distress. comfortable, Behavior is calm, cooperative, rb3 Denies fever. Pain: Complains of pain in anterior aspect of right upper chest Pain currently is 7 out of 10 on a pain scale. Pain began About an hour and 20 minutes ago. Neuro: Level of Consciousness is awake, alert, obeys commands, Oriented to person, place, time, situation. Neuro: Reports headache frontal area. Cardiovascular: Capillary refill < 3 seconds. Respiratory: Airway is patent Respiratory effort is even, unlabored, Respiratory pattern is regular, symmetrical. GI: No signs and/or symptoms were reported involving the gastrointestinal system. : No signs and/or symptoms were reported regarding the genitourinary system. Derm: Skin is dry, Skin is normal, Skin temperature is warm. Musculoskeletal: Range of motion: intact in all extremities. Historical: - Allergies: 10:21 No Known Allergies; rb3 - PMHx: 10:21 Degenerative disc disease; Gallbladder cancer; Headaches; Hyperlipidemia; Hypertension; rb3 low back pain; CHF; - PSHx: 10:21 Appendectomy; Cholecystectomy; rb3 - Immunization history:: Adult Immunizations up to date. - Social history:: Smoking status: Patient reports the use of cigarette tobacco products, smokes one-half pack cigarettes per day. Screenin:21 Abuse screen: Denies threats or abuse. Nutritional screening: No deficits noted. rb3 Tuberculosis screening: No symptoms or risk factors identified. Fall Risk None identified. Assessment: 10:21 General: See triage assessment. rb3 11:20 Reassessment: Patient appears in no apparent distress at this time. No changes from rb3 previously documented assessment. 12:19 Reassessment: Patient appears in no apparent distress at this time. Patient and/or rb3 family updated on plan of care and expected duration. Pain level reassessed. Patient is alert, oriented x 3, equal unlabored respirations, skin warm/dry/pink. Pt. is eating crackers. Family at the bedside. 13:15 Reassessment: Patient appears in no apparent distress at this time. No changes from rb3 previously documented assessment. 14:15 Reassessment: Patient appears in no apparent distress at this time. Patient and/or rb3 family updated on plan of care and expected duration. Pain level reassessed. Patient is alert, oriented x 3, equal unlabored respirations, skin warm/dry/pink. 15:02 Reassessment: Patient appears in no apparent distress at this time. No changes from rb3 previously documented assessment. Vital Signs: 10:21 BP 104 / 73; Pulse 101; Resp 20; Pulse Ox 95% on 2 lpm NC; rb3 11:15 BP 108 / 80; Pulse 101; Resp 22; Pulse Ox 95% on 2 lpm NC; rb3 12:15 BP 96 / 66; Pulse 97; Resp 22; Pulse Ox 96% on 2 lpm NC; rb3 13:15 BP 111 / 73; Pulse 95; Resp 19; Pulse Ox 100% ; rb3 14:15 BP 108 / 80; Pulse 95; Resp 19; Pulse Ox 95% on 3 lpm NC; rb3 15:03 BP 106 / 80; Pulse 94; Resp 19; Pulse Ox 99% ; rb3 ED Course: 10:21 Arm band placed on right wrist. rb3 10:21 Patient has correct armband on for positive identification. Bed in low position. Call rb3 light in reach. Side rails up X 1. monitor technician on. Pulse ox on. NIBP on. Warm blanket given. 10:21 Maintain EMS IV. Dressing intact. Good blood return noted. Site clean \T\ dry. Gauge \T\ rb 3 site: 22 G L AC. 10:23 Patient arrived in ED. em1 10:31 Celia Menjivar, RN is Primary Nurse. rb3 10:38 Triage completed. rb3 10:50 Chris Felder PA is PHCP. cp 10:50 Chris Kruse MD is Attending Physician. cp 11:18 XRAY Chest (1 view) In Process Unspecified. EDMS 14:14 CT Head Brain wo Cont In Process Unspecified. EDMS 15:05 No provider procedures requiring assistance completed. IV discontinued, intact, rb3 bleeding controlled, No redness/swelling at site. Pressure dressing applied. Administered Medications: 11:16 Drug: Tylenol 1000 mg Route: PO; rb3 11:52 Follow up: Response: No adverse reaction; Pain is decreased rb3 14:47 Drug: Albuterol HFA Inhaler 2 puffs Route: Inhalation; rb3 14:48 Drug: SOLU-Medrol 60 mg Route: IVP; Site: left antecubital; rb3 15:02 Follow up: Response: No adverse reaction rb3 Outcome: 14:43 Discharge ordered by . cp 15:05 Discharged to home via wheelchair, with family. rb3 15:05 Condition: stable 15:05 Discharge instructions given to patient, Instructed on discharge instructions, follow up and referral plans. medication usage, Demonstrated understanding of instructions, follow-up care, medications, Prescriptions given X 2. 15:06 Patient left the ED. rb3 Signatures: Dispatcher [employer] EDMS Hussein Peter em1 Chris Felder PA PA cp Celia Menjivar, RN RN rb3 Corrections: (The following items were deleted from the chart) 10:38 10:31 Chief complaint: rb3 rb3
--- NOTE | 2020-06-30 14:44 | EDPHYS ---
Physician Documentation [facility] Name: Kristal Gaspar Age: 59 yrs Sex: Female : 1960 Arrival Date: 06/30/2020 Time: 10:23 Bed 2 Private MD: ED Physician Chris Kruse HPI: 06/30 10:59 This 59 yrs old Black Female presents to ER via EMS with complaints of Chest Pain. cp 11:00 The patient or guardian reports chest pain that is located primarily in the anterior cp chest wall, right. Onset: today. 11:00 The pain does not radiate. cp 11:00 The chest pain is described as aching. cp 11:00 Associated signs and symptoms: Pertinent positives: headache, shortness of breath. cp Duration: The patient or guardian reports a single episode, that is still ongoing, but improving. Severity of pain: in the emergency department the pain has improved moderately. Historical: - Allergies: 10:21 No Known Allergies; rb3 - PMHx: 10:21 Degenerative disc disease; Gallbladder cancer; Headaches; Hyperlipidemia; Hypertension; rb3 low back pain; CHF; - PSHx: 10:21 Appendectomy; Cholecystectomy; rb3 - Immunization history:: Adult Immunizations up to date. - Social history:: Smoking status: Patient reports the use of cigarette tobacco products, smokes one-half pack cigarettes per day. ROS: 11:05 Cardiovascular: Positive for chest pain, Negative for palpitations. cp 11:05 Constitutional: Negative for body aches, chills, fever, poor PO intake. cp 11:05 Respiratory: Positive for shortness of breath, Negative for wheezing. 11:05 Abdomen/GI: Negative for abdominal pain, nausea, vomiting, and diarrhea. 11:05 Eyes: Negative for injury, pain, redness, and discharge. cp 11:05 Back: Negative for radiated pain. cp 11:05 Neuro: Negative for altered mental status, dizziness, headache, numbness, syncope, weakness. 11:05 All other systems are negative. Exam: 10:45 ECG was reviewed by the Attending Physician. cp 11:10 Constitutional: The patient appears in no acute distress, alert, awake, cp non-diaphoretic, non-toxic, well developed, well nourished. 11:10 Head/Face: Normocephalic, atraumatic. cp 11:10 Eyes: Periorbital structures: appear normal, Conjunctiva: normal, no exudate, no injection, Lids and lashes: appear normal, bilaterally. 11:10 ENT: External ear(s): are unremarkable, Nose: is normal, Posterior pharynx: Airway: no evidence of obstruction, patent. 11:10 Neck: ROM/movement: is normal, is supple, without pain, no range of motions limitations. 11:10 Chest/axilla: Inspection: normal, Palpation: is normal, no crepitus, no tenderness. 11:10 Cardiovascular: Rate: tachycardic, Rhythm: regular, JVD: is not appreciated. 11:10 Respiratory: the patient does not display signs of respiratory distress, Respirations: normal, no use of accessory muscles, no retractions, labored breathing, is not present, Breath sounds: are clear throughout, no decreased breath sounds, no stridor, no wheezing. 11:10 Abdomen/GI: Inspection: abdomen appears normal, Palpation: abdomen is soft and non-tender, in all quadrants. 11:10 Neuro: Orientation: to person, place \T\ time. Mentation: is normal, Motor: moves all fours, strength is normal. Vital Signs: 10:21 BP 104 / 73; Pulse 101; Resp 20; Pulse Ox 95% on 2 lpm NC; rb3 11:15 BP 108 / 80; Pulse 101; Resp 22; Pulse Ox 95% on 2 lpm NC; rb3 12:15 BP 96 / 66; Pulse 97; Resp 22; Pulse Ox 96% on 2 lpm NC; rb3 13:15 BP 111 / 73; Pulse 95; Resp 19; Pulse Ox 100% ; rb3 14:15 BP 108 / 80; Pulse 95; Resp 19; Pulse Ox 95% on 3 lpm NC; rb3 15:03 BP 106 / 80; Pulse 94; Resp 19; Pulse Ox 99% ; rb3 MDM: 10:53 Patient medically screened. leon 14:42 Data reviewed: vital signs, nurses notes, lab test result(s), EKG, radiologic studies, cp plain films. 14:42 Refusal of service: The patient/guardian displays adequate decision making capability cp and despite a detailed discussion of alternatives, benefits, risks, and consequences refuses: Admission to the hospital for further work-up and treatment. ED course: VSS. Patient reports pain and shortness of breath improved. Declines admission. Will discharge to home for continued monitoring. 06/30 10:40 Order name: Basic Metabolic Panel; Complete Time: 13:29 cp 06/30 10:40 Order name: CBC with Diff; Complete Time: 11:46 cp 06/30 11:47 Interpretation: Normal except: HGB 15.1; HCT 45.9. cp 06/30 10:40 Order name: LFT's; Complete Time: 13:29 cp 06/30 10:40 Order name: Magnesium; Complete Time: 13:29 cp 06/30 10:40 Order name: NT PRO-BNP; Complete Time: 13:29 cp 06/30 13:29 Interpretation: Abnormal: NT PRO-BNP 4405. cp 06/30 10:40 Order name: PT-INR; Complete Time: 11:46 cp 06/30 10:40 Order name: Troponin (emerg Dept Use Only); Complete Time: 13:29 cp 06/30 10:40 Order name: XRAY Chest (1 view); Complete Time: 12:39 cp 06/30 13:46 Order name: CT Head Brain wo Cont; Complete Time: 14:33 cp 06/30 14:19 Order name: SARS-COV-2 RT PCR; Complete Time: 14:33 EDMS 06/30 10:40 Order name: EKG; Complete Time: 10:41 cp 06/30 10:40 Order name: Cardiac monitoring; Complete Time: 10:43 cp 06/30 10:40 Order name: EKG - Nurse/Tech; Complete Time: 10:43 cp 06/30 10:40 Order name: IV Saline Lock; Complete Time: 10:44 cp 06/30 10:40 Order name: Labs collected and sent; Complete Time: 10:53 06/30 10:40 Order name: O2 Per Protocol; Complete Time: 10:43 cp 06/30 10:40 Order name: O2 Sat Monitoring; Complete Time: 10:44 cp EC:45 Rate is 99 beats/min. Rhythm is regular. WI interval is normal. QRS interval is normal. cp QT interval is prolonged at 398 msec. Interpreted by me. Reviewed by me. Administered Medications: 11:16 Drug: Tylenol 1000 mg Route: PO; rb3 11:52 Follow up: Response: No adverse reaction; Pain is decreased rb3 14:47 Drug: Albuterol HFA Inhaler 2 puffs Route: Inhalation; rb3 14:48 Drug: SOLU-Medrol 60 mg Route: IVP; Site: left antecubital; rb3 15:02 Follow up: Response: No adverse reaction rb3 Disposition: 06/30/20 14:43 Discharged to Home. Impression: Chest pain, unspecified, Shortness of breath. - Condition is Stable. - Discharge Instructions: Nonspecific Chest Pain, Shortness of Breath, Aspirin and Your Heart. - Prescriptions for Pepcid 20 mg Oral Tablet - take 1 tablet by ORAL route every 12 hours for 10 days; 20 tablet. Albuterol Sulfate 90 mcg/actuation - inhale 1-2 puff by INHALATION route every 4-6 hours; 1 Inhaler. - Medication Reconciliation Form, Thank You Letter, Antibiotic Education, Prescription Opioid Use, Work release form form. - Follow up: Private Physician; When: 1 - 2 days; Reason: Recheck today's complaints. - Problem is new. - Symptoms have improved. Addendum: 07/01/2020 17:57 Co-signature as Attending Physician, Chris Kruse MD I agree with the assessment and c mckay plan of care. Signatures: Dispatcher [employer] [facility] Chris Kruse MD MD cha Page, Corey, PA PA Celia Chacon, RN RN rb3 Corrections: (The following items were deleted from the chart) 06/30 12:22 10:59 CORONAVIRUS+MR.LAB.BRZ ordered. [facility] 15:06 14:43 06/30/2020 14:43 Discharged to Home. Impression: Chest pain, unspecified; rb3 Shortness of breath. Condition is Stable. Forms are Medication Reconciliation Form, Thank You Letter, Antibiotic Education, Prescription Opioid Use. Follow up: Private Physician; When: 1 - 2 days; Reason: Recheck today's complaints. Problem is new. Symptoms have improved. cp 07/01 13:22 06/30 11:00 The patient or guardian reports chest pain that is located primarily in the cp anterior chest wall, cp
[2020-06-30] MEDS ORDERED: ALBUTEROL INHALER 60 PUFF/8 GM IH ONE (14:54)
[2020-06-30] MEDS ORDERED: METHYLPREDNISOLONE 40 MG INJ ONE (14:54)
--- NOTE | 2020-06-30 15:26 | P.CNS ---
Date of Consult: 06/30/20 Reason for Consult: ER evaluation for Admission Primary Care Provider: Dr. Parker([place]); Pulmonary-Dr. Melendez; Pain management Chief Complaint: Chest pain, shortness of breath History of Present Illness: 59-year-old female with history of COPD, tobacco abuse, chronic pain, insomnia. Patient presented to the emergency room with chest pain and shortness of breath. Patient had been seen early this week for similar symptoms. She was sent home with [facility]. She was told to follow-up with cardiology. She has not been able to set up an appointment with Cardiology just yet. Today she she noted chest pain and shortness of breath. She denied any radiation of pain. She denied any nausea, vomiting. No diarrhea or constipation. She was evaluated in the emergency room. Oxygen saturations around 89% and above. Chest x-ray unremarkable. CT head unremarkable. Lab- sodium and potassium within normal range. CBC unremarkable. COVID negative. BNP slightly elevated but unchanged since earlier in the week. Cardiac enzymes unremarkable. I was asked to evaluate the patient for possible admission. When I went to go see the patient she reports improvement. Patient does not desire to be admitted to the hospital. She preferred to go home and follow up with cardiology. Allergies No Known Allergies Allergy (Unverified 11/20/17 21:03) Home medications list reviewed: Yes Home Medications: Butalb/Acetaminophen/Caffeine [Lvinwx-Ibksmkpo-Jtzk 50-325-40] 1 tab PO Q4HP PRN 11/20/17 Gabapentin [Neurontin*] 1 cap PO BID 11/20/17 Hydrocodone/Acetaminophen [Hydrocodone-Acetamin 10-325 mg] 1 tab PO Q6HP PRN 11/20/17 Pravastatin Sodium 1 tab PO BEDTIME 11/20/17 Zolpidem Tartrate 1 tab PO BEDTIME PRN 11/20/17 Albuterol Sulfate [Proair Hfa] 8.5 gm IH TID PRN #1 hfa.aer.ad 11/24/17 Benzonatate [Tessalon Perle] 100 mg PO TID PRN #30 cap 11/24/17 Budesonide/Formoterol Fumarate [Symbicort 160-4.5 Mcg Inhaler] 2 puff IH BID #1 hfa.aer.ad 11/24/17 Nicotine [Nicoderm*] 21 mg TD DAILY #30 patch.td24 11/24/17 levoFLOXacin [Levaquin] 500 mg PO DAILY #7 tab 11/24/17 predniSONE [Prednisone*] 20 mg PO SEECOM #15 tab 11/24/17 - Past Medical/Surgical History Diabetic: No -: COPD -: Tobacco abuse -: Chronic pain -: History of common bile duct stent -: Hysterectomy Psychosocial/ Personal History: Patient is - Family History Mother Medical History: Heart disease, Stroke - Social History Smoking Status: Current every day smoker Smoking therapy provided: Yes Patient receptive to therapy: No Alcohol use: No CD- Drugs: Yes Caffeine use: Yes Place of Residence: Home Review of Systems General: As per HPI Eyes: Unremarkable ENT: Unremarkable Respiratory: Shortness of Breath Cardiovascular: Chest Pain Gastrointestinal: Unremarkable Genitourinary: Unremarkable Musculoskeletal: Unremarkable Integumentary: Unremarkable Neurological: Unremarkable Lymphatics: Unremarkable Physical Examination General: Alert, In no apparent distress, Oriented x3, Cooperative HEENT: Atraumatic, Normocephalic, Mucous membr. moist/pink Neck: Supple Respiratory: Expiratory wheezes (Bilateral) Cardiovascular: Normal pulses, Regular rate/rhythm Gastrointestinal: Normal bowel sounds, No ascites, No tenderness, No masses, No rebound, No guarding Musculoskeletal: No erythema, No tenderness, No warmth Integumentary: No tenderness/swelling, No erythema, No warmth, No cyanosis Neurological: Normal speech, Normal strength at 5/5 x4 extr, Normal tone, Normal affect Laboratory Data (last 24 hrs) 06/30/20 12:49: Sodium 137, Potassium 3.6, BUN 9, Creatinine 1.22, Glucose 91, Magnesium 2.4, Total Bilirubin 0.9, AST 20, ALT 19, Alkaline Phosphatase 115 06/30/20 10:50: PT 13.5 H, INR 1.15 06/30/20 10:50: WBC 4.7 D, Hgb 15.1 H, Hct 45.9 H, Plt Count 199 Conclusions/Impression: Impression: Chest pain with shortness of breath suspect COPD exacerbation Tobacco abuse Chronic pain Plan: Patient did not desire to stay in the hospital. This was addressed in detail with the patient. Her preference would be to go home and follow up with cardiology for further outpatient evaluation including an echo and cardiac stress test. She has an appointment soon at [facility] cardiology. Patient did have some wheezing. Patient with COPD and tobacco abuse. Recommendation was to give Solu-Medrol 40 mg in the emergency room. Encourage patient to use her inhaler. May need to hold her Lasix until seen by Cardiology to evaluate for possible CHF. No evidence on chest x-ray identified. Patient would benefit with prednisone 10 mg daily for 7 days. Recommend to continue COPD medication. Tobacco cessation addressed in detail. Patient does not plan to quit. Recommendation for the patient follow up with her isolation washer to further assess. Patient will follow up with her other specialty care including pain management. This was discussed in detail with ER provider. ER provider plans to continue with above recommendations. Time Spent Managing Pts care (In Minutes): 55
[2020-07-04 16:38] VITALS: BP 106/80; O2SAT 99
== END 2020-06-30 15:06 | disposition home or self-care (01) ==
LOC: ER 10:21
DX: R07.89 Other chest pain (principal); R06.02 Shortness of breath; I50.9 Heart failure, unspecified; I10 Essential (primary) hypertension; F17.210 Nicotine dependence, cigarettes, uncomplicated; Z20.828 Contact with and (suspected) exposure to other viral communicable diseases; Z82.49 Family history of ischemic heart disease and other diseases of the circulatory system; Z82.3 Family history of stroke
CPT/HCPCS: 93005; 85025; 80048; 36415; 83735; 85610; 80076; 84484; 83880; 70450; 71045; 96374; 99285; U0003; J2920

== ENCOUNTER 2020-08-20 11:49 | Emergency (ER) | payer BC ==
[2020-08-20 17:21] LABS: Absolute Lymphocytes (CBC) 1.5 K/uL (0.7-4.9); Basophils % 0.9 % (0-1.3); Hematocrit 45.1 % (36.0-45.0); MPV 9.6 fL (7.6-11.3)
[2020-08-20 17:31] LABS: Urine Blood NEGATIVE (NEG); Urine Glucose NEGATIVE (NEG); Urine Protein 1+ (NEG); Urine pH 6.5 (5.0-7.0)
[2020-08-20 17:36] LABS: Protime INR 1.16
[2020-08-20 17:39] LABS: ALT/SGPT 10 U/L (12-78); AST/SGOT 16 U/L (15-37); Albumin 3.5 g/dL (3.4-5.0); Alkaline Phosphatase 88 U/L (45-117); BUN Blood Urea Nitrogen 10 mg/dL (7-18); Bicarbonate 28 mmol/L (21-32); Bilirubin Direct 0.3 mg/dL (0-0.2); Bilirubin Total 0.8 mg/dL (0.2-1.0); Glucose Level 126 mg/dL (74-106); Magnesium 2.4 mg/dL (1.8-2.4); NT PRO-BNP 2142 pg/mL (<125); Potassium 3.2 mmol/L (3.5-5.1); Protein, Total 8.7 g/dL (6.4-8.2); Sodium Level 138 mmol/L (136-145); Troponin (Emerg Dept Use Only) < 0.02 ng/mL (0.0-0.045)
--- NOTE | 2020-08-20 18:00 | RAD REPORT ---
EXAM DESCRIPTION: CT - Head Brain Wo Cont - 08/20/2020 5:48 pm CLINICAL HISTORY: SYNCOPE, fall, head trauma COMPARISON: Head Brain Wo Cont dated 06/30/2020 TECHNIQUE: Axial 5 mm thick images of the head were obtained without IV contrast. All CT scans are performed using dose optimization technique as appropriate and may include automated exposure control or mA/KV adjustment according to patient size. FINDINGS: No intracranial hemorrhage, mass, edema or shift of mid-line structures. No acute infarcti on changes seen. No abnormal extra-axial fluid collections. Ventricles are normal. Physiologic basal ganglia calcifications are present. Mastoid air cells are clear. No acute paranasal sinus finding. No acute bony findings. IMPRESSION: Negative non-contrast CT head examination for acute finding. No significant change from the June 2020 study.
[2020-08-20] MEDS ORDERED: POTASSIUM 25 MEQ EFFERV TAB ONE (18:07)
--- NOTE | 2020-08-20 18:38 | ER ---
Nurse's Notes [facility] Name: Kristal Gaspar Age: 59 yrs Sex: Female : 1960 Arrival Date: 08/20/2020 Time: 11:51 Bed 19 Private MD: Diagnosis: Syncope and collapse;Unspecified combined systolic (congestive) and diastolic (congestive) heart failure;Pain in left knee Presentation: 08/20 12:03 Chief complaint: Patient states: My doctor told me to come here and be evaluated cause ca1 I fell Thursday, hurt L knee. When, I just went out, passed out and fell. Denies hitting head. My doctor also wants my heart to be checked cause it's high at 140s on Thursday. Pt on O2 at 3LPM at home for SOB and COPD. Coronavirus screen: shortness of breath, Client presents with at least one sign or symptom that may indicate coronavirus-19. Standard/surgical mask placed on the client. Provider contacted for isolation considerations. Ebola Screen: Patient negative for fever greater than or equal to 101.5 degrees Fahrenheit, and additional compatible Ebola Virus Disease symptoms Patient denies exposure to infectious person. Patient denies travel to an Ebola-affected area in the 21 days before illness onset. No symptoms or risks identified at this time. Initial Sepsis Screen: Does the patient meet any 2 criteria? No. Patient's initial sepsis screen is negative. Does the patient have a suspected source of infection? No. Patient's initial sepsis screen is negative. Risk Assessment: Do you want to hurt yourself or someone else? Patient reports no desire to harm self or others. Onset of symptoms was August 18, 2020. 12:03 Method Of Arrival: Wheelchair ca1 12:03 Acuity: GIULIA 2 ca1 Triage Assessment: 15:40 General: Appears in no apparent distress. uncomfortable, Behavior is cooperative, bp appropriate for age, anxious. Pain: Complains of pain in left knee. EENT: No deficits noted. Neuro: No deficits noted. Reports a syncopal episode. Cardiovascular: No deficits noted. Respiratory: Reports shortness of breath CHRONIC Onset: The symptoms/episode began/occurred at an unknown time. the patient has mild shortness of breath. GI: No signs and/or symptoms were reported involving the gastrointestinal system. : No signs and/or symptoms were reported regarding the genitourinary system. Derm: No deficits noted. Musculoskeletal: No deficits noted. Historical: - Allergies: 12:09 No Known Allergies; ca1 - PMHx: 12:09 CHF; Degenerative disc disease; Gallbladder cancer; Headaches; Hyperlipidemia; ca1 Hypertension; low back pain; COPD; - PSHx: 12:09 Appendectomy; Cholecystectomy; ca1 - Immunization history:: Flu vaccine is not up to date. - Social history:: Smoking status: Patient reports the use of cigarette tobacco products, smokes one pack cigarettes per day. Screenin:40 Abuse screen: Denies threats or abuse. Denies injuries from another. Nutritional bp screening: No deficits noted. Tuberculosis screening: No symptoms or risk factors identified. Fall Risk Fall in past 12 months (25 points). No secondary diagnosis (0 pts). No IV (0 pts). Ambulatory Aid- None/Bed Rest/Nurse Assist (0 pts). Gait- Normal/Bed Rest/Wheelchair (0 pts) Mental Status- Oriented to own ability (0 pts). Total Nicole Fall Scale indicates Low Risk Score (25-44 pts). Fall prevention measures have been instituted. Side Rails Up X 2 Placed close to Nursing Station Frequent Obs/Assesments occuring As available Patient and Family Educated on Fall Prevention Program and strategies. Assessment: 15:40 General: SEE TRIAGE NOTE. bp 17:40 Reassessment: PT TO CT. Cardiovascular: Rhythm is sinus rhythm. Respiratory: Airway is bp patent Respiratory effort is even, unlabored, Breath sounds are clear bilaterally. 18:49 Reassessment: PT SIGN OUT AMA. URGED TO REMAIN BY STAFF AND PROVIDER, BUT REFUSED. PT bp COUNSELED TO RETURN IF S/S RETURN OR WORSEN. Vital Signs: 12:03 BP 91 / 68; Pulse 107; Resp 20 S; Temp 97.5(TE); Pulse Ox 99% on 3 lpm NC; Weight 63.5 ca1 kg (R); Height 5 ft. 3 in. (160.02 cm) (R); Pain 0/10; 15:44 BP 111 / 96 RA Sitting (auto/reg); Pulse 103; Resp 20; Pulse Ox 96% on NC; dh4 15:44 BP 104 / 75 RA Supine (auto/reg); Pulse 104; Resp 22; Pulse Ox 99% on 3 lpm NC; dh4 15:44 BP 105 / 82 RA Standing (auto/reg); Pulse 108; Resp 20; Pulse Ox 98% on 3 lpm NC; dh4 16:24 BP 107 / 87; Pulse 95; Resp 16; Pulse Ox 99% on 3 lpm NC; bp 17:40 BP 105 / 75; Pulse 96; Resp 17; Pulse Ox 99% ; bp 12:03 Body Mass Index 24.80 (63.50 kg, 160.02 cm) ca1 ED Course: 11:51 Patient arrived in ED. ag5 12:08 Triage completed. ca1 12:09 Arm band placed on right wrist. ca1 15:31 James Ramos, RN is Primary Nurse. bp 15:33 Chris Felder PA is PHCP. cp 15:33 Rosa Marc MD is Attending Physician. cp 15:40 Patient has correct armband on for positive identification. Bed in low position. Call bp light in reach. Side rails up X2. 16:00 Inserted saline lock: 20 gauge in right forearm, using aseptic technique. Blood bp collected. 18:49 No provider procedures requiring assistance completed. IV discontinued, intact, bp bleeding controlled, No redness/swelling at site. Pressure dressing applied. Administered Medications: 18:00 Drug: Potassium Effervescent Tablet 50 mEq Route: PO; bp 18:12 Follow up: Response: No adverse reaction bp 18:30 Drug: Lasix 20 mg Route: IVP; Site: right forearm; bp 18:48 Follow up: Response: No adverse reaction bp Outcome: 18:49 AMA AMA form signed bp 18:49 Condition: stable 18:49 Instructed on the need for admit. 18:50 Patient left the ED. bp Signatures: Chris Felder PA PA cp James Ramos, RN RN bp Deana Hernandez RN RN ca1 Man Harris [facility] Sergo Abreu [facility]
--- NOTE | 2020-08-20 18:39 | RAD REPORT ---
EXAM DESCRIPTION: RAD - Knee Left 3 View - 08/20/2020 6:27 pm CLINICAL HISTORY: fall;Pain COMPARISON: No comparisons FINDINGS: No fracture, dislocation or periosteal reaction.No joint effusion seen. No joint space ezra rowing. Minimal marginal spurring in the medial compartment. No soft tissue abnormality. IMPRESSION: No acute left knee bone or joint finding. Clinical concerns for internal derangement or occult bony injury could be further assessed with MR im aging.
--- NOTE | 2020-08-20 18:39 | EDPHYS ---
Physician Documentation [facility] Name: Kristal Gaspar Age: 59 yrs Sex: Female : 1960 Arrival Date: 08/20/2020 Time: 11:51 Bed 19 Private MD: ED Physician Rosa Marc HPI: 08/20 15:40 This 59 yrs old Black Female presents to ER via Wheelchair with complaints of Increased cp Heart Rate, Shortness Of Breath, High Blood Pressure. 15:40 The patient has shortness of breath at rest. cp 15:40 Onset: The symptoms/episode began/occurred 2 day(s) ago. cp 15:40 Duration: The symptoms are continuous, and are steadily getting worse. The patient's cp shortness of breath is aggravated by light activity. Associated signs and symptoms: Pertinent positives: palpitations, elevated blood pressure, Pertinent negatives: non-productive cough, productive cough, dizziness, fever, visual changes. Severity of symptoms: in the emergency department the symptoms are unchanged despite home interventions. Patient reports syncopal episode yesterday while walking in kitchen getting ready for sabianism. Patient reports she was walking in kitchen and next thing she remembers is waking up on ground. Reports left knee pain since syncopal episode. Historical: - Allergies: 12:09 No Known Allergies; ca1 - PMHx: 12:09 CHF; Degenerative disc disease; Gallbladder cancer; Headaches; Hyperlipidemia; ca1 Hypertension; low back pain; COPD; - PSHx: 12:09 Appendectomy; Cholecystectomy; ca1 - Immunization history:: Flu vaccine is not up to date. - Social history:: Smoking status: Patient reports the use of cigarette tobacco products, smokes one pack cigarettes per day. ROS: 15:45 Constitutional: Negative for body aches, chills, fever, poor PO intake. cp 15:45 Eyes: Negative for injury, pain, redness, and discharge. cp 15:45 ENT: Negative for ear pain, sore throat, difficulty swallowing, difficulty handling secretions. 15:45 Neck: Negative for pain with movement, pain at rest. 15:45 Cardiovascular: Positive for edema, palpitations, Negative for chest pain. 15:45 Respiratory: Positive for shortness of breath, at rest. Negative for cough, wheezing. 15:45 Abdomen/GI: Negative for abdominal pain, nausea, vomiting, and diarrhea, black/tarry stool, rectal bleeding. 15:45 Back: Negative for pain at rest, pain with movement. 15:45 MS/extremity: Positive for pain, tenderness, of the left knee. 15:45 Skin: Negative for rash. 15:45 Neuro: Positive for syncope, Negative for altered mental status, dizziness, weakness. 15:45 All other systems are negative. Exam: 15:43 ECG was reviewed by the Attending Physician. cp 15:50 Constitutional: The patient appears in no acute distress, alert, awake, cp non-diaphoretic, non-toxic, well developed, well nourished. 15:50 Head/Face: Normocephalic, atraumatic. cp 15:50 Eyes: Periorbital structures: appear normal, Pupils: equal, round, and reactive to light and accomodation, Extraocular movements: intact throughout, Conjunctiva: normal, no exudate, no injection, Lids and lashes: appear normal, bilaterally. 15:50 ENT: External ear(s): are unremarkable, Nose: is normal, Posterior pharynx: Airway: no evidence of obstruction, patent. 15:50 Neck: C-spine: vertebral tenderness, is not appreciated, crepitus, is not appreciated, ROM/movement: pain, is not appreciated, limited range of motion, is not appreciated. 15:50 Chest/axilla: Inspection: normal, Palpation: is normal, no crepitus, no tenderness. 15:50 Cardiovascular: Rate: tachycardic, Rhythm: regular, Pulses: Pulses are 2+ in right radial artery and left radial artery. Edema: very mild bilateral lower leg, JVD: is not appreciated. 15:50 Respiratory: the patient does not display signs of respiratory distress, Respirations: normal, no use of accessory muscles, no retractions, labored breathing, is not present, Breath sounds: are clear throughout, no decreased breath sounds, no stridor, no wheezing. 15:50 Abdomen/GI: Inspection: abdomen appears normal, Bowel sounds: active, all quadrants, Palpation: abdomen is soft and non-tender, in all quadrants. 15:50 Back: pain, is absent, ROM is normal. 15:50 Musculoskeletal/extremity: Joints: All joints are normal except the left knee displays painful range of motion, tenderness. 15:50 Neuro: Orientation: to person, place \\T\\ time. Mentation: is normal, Cerebellar function: Romberg testing is negative, normal finger to nose testing, heel to cardenas testing is normal, Motor: moves all fours, strength is normal, Sensation: no obvious gross deficits. Vital Signs: 12:03 BP 91 / 68; Pulse 107; Resp 20 S; Temp 97.5(TE); Pulse Ox 99% on 3 lpm NC; Weight 63.5 ca1 kg (R); Height 5 ft. 3 in. (160.02 cm) (R); Pain 0/10; 15:44 BP 111 / 96 RA Sitting (auto/reg); Pulse 103; Resp 20; Pulse Ox 96% on NC; dh4 15:44 BP 104 / 75 RA Supine (auto/reg); Pulse 104; Resp 22; Pulse Ox 99% on 3 lpm NC; dh4 15:44 BP 105 / 82 RA Standing (auto/reg); Pulse 108; Resp 20; Pulse Ox 98% on 3 lpm NC; dh4 16:24 BP 107 / 87; Pulse 95; Resp 16; Pulse Ox 99% on 3 lpm NC; bp 17:40 BP 105 / 75; Pulse 96; Resp 17; Pulse Ox 99% ; bp 12:03 Body Mass Index 24.80 (63.50 kg, 160.02 cm) ca1 MDM: 15:40 Patient medically screened. cp 16:00 Differential diagnosis: Chronic Obstructive Pulmonary Disease pneumonia, Pneumothorax cp pulmonary edema, Pulmonary Embolism Sepsis Unstable Angina. 18:32 Data reviewed: vital signs, nurses notes, lab test result(s), EKG, radiologic studies, cp CT scan, plain films. Test interpretation: by ED physician or midlevel provider: ECG, xrays of left knee negative for fracture. Counseling: I had a detailed discussion with the patient and/or guardian regarding: the historical points, exam findings, and any diagnostic results supporting the discharge/admit diagnosis, lab results, radiology results, the need for further work-up and treatment in the hospital. Refusal of service: The patient/guardian displays adequate decision making capability and despite a detailed discussion of alternatives, benefits, risks, and consequences refuses: Admission to the hospital for further work-up and treatment, Patient declines admission after discussing concern for syncopal episode and volume overload. 08/20 15:46 Order name: Basic Metabolic Panel cp 08/20 15:46 Order name: CBC with Diff cp 08/20 15:46 Order name: LFT's cp 08/20 15:46 Order name: Magnesium cp 08/20 15:46 Order name: NT PRO-BNP cp 08/20 15:46 Order name: PT-INR cp 08/20 15:46 Order name: Troponin (emerg Dept Use Only) cp 08/20 15:46 Order name: COVID-19 : Document "Date of Symptom Onset" if Symptomatic. cp 08/20 17:17 Order name: Urine Dipstick--Ancillary (enter results) bd 08/20 17:28 Order name: CBC with Automated Diff; Complete Time: 17:34 EDMS 08/20 17:34 Interpretation: Normal except: HCT 45.1; RDW 16.3. cp 08/20 17:32 Order name: Urine Dipstick-Ancillary; Complete Time: 17:34 EDMS 08/20 17:40 Order name: Basic Metabolic Panel; Complete Time: 17:42 EDMS 08/20 17:42 Interpretation: Normal except: K 3.2; GLUC 126; GFR 80. cp 08/20 17:40 Order name: Liver (Hepatic) Function; Complete Time: 17:42 EDMS 08/20 17:43 Interpretation: Normal except: ALT 10; BILID 0.3; TP 8.7; GLOB 5.2; A/G 0.7. cp 08/20 17:40 Order name: Troponin (Emerg Dept Use Only); Complete Time: 17:42 EDMS 08/20 12:09 Order name: EKG; Complete Time: 12:10 ca1 08/20 12:09 Order name: EKG - Nurse/Tech; Complete Time: 15:29 ca1 08/20 15:34 Order name: Orthostatics; Complete Time: 16:18 cp 08/20 15:46 Order name: XRAY Chest (1 view) cp 08/20 15:46 Order name: Cardiac monitoring; Complete Time: 17:42 cp 08/20 15:46 Order name: CT Head Brain wo Cont cp 08/20 17:35 Order name: XRAY Knee LEFT 3 view cp 08/20 17:40 Order name: NT PRO-BNP; Complete Time: 17:42 EDMS 08/20 17:40 Order name: Magnesium; Complete Time: 17:42 EDMS 08/20 18:01 Order name: Protime (+INR); Complete Time: 18:02 EDKY 08/20 18:02 Order name: CT; Complete Time: 18:09 EDKY 08/20 18:31 Order name: CORONAVIRUS EDKY 08/20 18:41 Order name: RAD EDMS 08/20 18:44 Order name: RAD EDMS 08/20 15:46 Order name: IV Saline Lock; Complete Time: 17:42 cp 08/20 15:46 Order name: Labs collected and sent; Complete Time: 17:42 cp 08/20 15:46 Order name: O2 Per Protocol; Complete Time: 16:19 cp 08/20 15:46 Order name: O2 Sat Monitoring; Complete Time: 16:19 cp 08/20 15:46 Order name: Urine Dipstick-Ancillary (obtain specimen); Complete Time: 17:41 cp EC:43 Rate is 103 beats/min. Rhythm is regular. OR interval is normal. QRS interval is cp normal. QT interval is normal. T waves are Inverted in lead aVL. Interpreted by me. Reviewed by me. Administered Medications: 18:00 Drug: Potassium Effervescent Tablet 50 mEq Route: PO; bp 18:12 Follow up: Response: No adverse reaction bp 18:30 Drug: Lasix 20 mg Route: IVP; Site: right forearm; bp 18:48 Follow up: Response: No adverse reaction bp Disposition: 08/21 15:56 Co-signature as Attending Physician, Rosa Marc MD. ma2 Disposition: 08/20/20 18:37 Patient has left against medical advice. Impression: Syncope and collapse, Unspecified combined systolic (congestive) and diastolic (congestive) heart failure, Pain in left knee. - Patients states they are going to Home. - Condition is Stable. - Discharge Instructions: Heart Failure, Syncope, Knee Pain. Follow up: Private Physician; When: 1 - 2 days; Reason: Recheck today's complaints. - Problem is new. - Symptoms have improved. Signatures: Dispatcher [employer] [facility] Keith Chatman, FARIBA-C BACK CLOSER-Cla1 Chris Felder PA PA cp Peltier, Brian RN RN Rosa Salas MD MD ma2 Deana Hernandez RN RN ca1 Corrections: (The following items were deleted from the chart) 08/20 17:24 17:23 ECG was reviewed by the Attending Physician. cp cp 17:24 17:23 Rate is 103 beats/min. Rhythm is regular. OR interval is normal. QRS interval is cp normal. QT interval is normal. T waves are Inverted in lead aVL. Interpreted by me. Reviewed by me. cp 18:50 18:37 08/20/2020 18:37 Patients has left against medical advice. Impression: Syncope bp and collapse; Unspecified combined systolic (congestive) and diastolic (congestive) heart failure; Pain in left knee. Patient states they are going to Home. Condition is Stable. Follow up: Private Physician; When: 1 - 2 days; Reason: Recheck today's complaints. Problem is new. Symptoms have improved. cp
--- NOTE | 2020-08-20 18:43 | RAD REPORT ---
EXAM DESCRIPTION: RAD - Chest Single View - 08/20/2020 6:27 pm CLINICAL HISTORY: SOB, fall COMPARISON: Portable June 30, 2020 TECHNIQUE: AP portable chest image was obtained 08/20/2020 6:27 pm . FINDINGS: Lung volumes are low which accentuates the significantly prominent baseline interstitial p attern. No focal consolidation or mass. Pattern is not substantially different when adjusting for the lower lung volume. Heart and vasculature are normal. No measurable pleural effusion and no pneumothorax. No acute bony a bnormality seen. No acute aortic findings suspected. IMPRESSION: Very prominent baseline interstitial pattern accentuated by low lung volumes on the curr ent examination. Severity of disease can mask interstitial edema and infiltrate.
[2020-08-20] MEDS ORDERED: FUROSEMIDE 20 MG/ 2ML VIAL ONE (18:50)
[2020-08-20 21:33] VITALS: TEMP 97.5; O2SAT 99
[2020-08-20 21:38] VITALS: BP 105/75
--- NOTE | 2020-08-21 12:58 | EKG ---
Test Date: 2020-08-20 Test Time: 12:13:44 Air Sampler: RILEY MEASUREMENT RESULTS: Intervals: Rate: 103 NE: 142 QRSD: 90 QT: 390 QTc: 510 [place]: P: 53 NE: 142 QRS: 128 T: 27 INTERPRETIVE STATEMENTS: Sinus tachycardia Right atrial enlargement Left posterior fascicular block Abnormal ECG Compared to ECG 06/30/2020 10:40:59 Left posterior fascicular block now present Sinus rhythm no longer present Right-axis deviation no longer present ST (T wave) deviation no longer present Prolonged QT interval no longer present Electronically Signed On 08-21-20 12:53:57 BOARD CERTIFIED MUSIC THERAPIST by Travis Levine
== END 2020-08-20 18:50 | disposition left against medical advice (07) ==
LOC: ER 11:49
DX: I50.40 Unspecified combined systolic (congestive) and diastolic (congestive) heart failure (principal); R55 Syncope and collapse; M25.562 Pain in left knee; Z20.822 Contact with and (suspected) exposure to COVID-19
CPT/HCPCS: 93005; 85025; 80048; 36415; 83735; 85610; 80076; 81003; 84484; 83880; 70450; 71045; 73562; U0003; J1940; 96374; 99284

== ENCOUNTER 2020-11-03 10:41 | Emergency (ER) | payer BC ==
[2020-11-03 11:21] LABS: Absolute Lymphocytes (CBC) 1.6 K/uL (0.7-4.9); Basophils % 0.3 % (0-1.3); Hematocrit 51.2 % (36.0-45.0); Lymphocytes % 16.7 % (15.3-44.8); MPV 9.9 fL (7.6-11.3); RBC Red Blood Cell Count 5.14 M/uL (3.86-4.86)
[2020-11-03 11:29] LABS: Protime INR 1.21
[2020-11-03] MEDS ORDERED: FENTANYL CITR 100 MCG/2 ML ONE (11:31)
[2020-11-03] MEDS ORDERED: ONDANSETRON 4 MG/2 ML VIAL ONE (11:32)
[2020-11-03 11:42] LABS: ALT/SGPT 36 U/L (12-78); AST/SGOT 34 U/L (15-37); Albumin 3.3 g/dL (3.4-5.0); Alkaline Phosphatase 208 U/L (45-117); BUN Blood Urea Nitrogen 14 mg/dL (7-18); Bicarbonate 21 mmol/L (21-32); Bilirubin Direct 1.6 mg/dL (0-0.2); Bilirubin Total 2.3 mg/dL (0.2-1.0); Ferritin 148.8 ng/mL (8-388); Glucose Level 202 mg/dL (74-106); Lipase 103 U/L (73-393); Potassium 4.7 mmol/L (3.5-5.1); Protein, Total 8.8 g/dL (6.4-8.2); Sodium Level 131 mmol/L (136-145); Troponin (Emerg Dept Use Only) < 0.02 ng/mL (0.0-0.045)
--- NOTE | 2020-11-03 11:50 | RAD REPORT ---
EXAM DESCRIPTION: RAD - Chest Single View - 11/03/2020 11:41 am CLINICAL HISTORY: DYSPNEA COMPARISON: Portable August 20 TECHNIQUE: AP portable chest image was obtained 11/03/2020 11:41 am . FINDINGS: No peripheral mass consolidation. Patient has an extensive baseline interstitial pattern. Port-A-Cath is in place. Findings are worse in each lung base but not clearly different from comparis on. The severity of chronic disease could mask early infiltrate or edema. Cardiac silhouette is enlarged similar to comparison. Vasculature within normal limits. No pneumotho rax or large pleural effusion. No acute bony abnormality seen. No acute aortic findings suspected. IMPRESSION: Extensive interstitial lung disease on a chronic basis. Findings are worse in each lung base. Severity of disease could mask early edema or infiltrate.
[2020-11-03] MEDS ORDERED: NA CHLORIDE 0.9% 1,000 ML ONE ×2 (11:54→14:27)
[2020-11-03 12:18] LABS: Arterial Blood Carboxyhemoglob 1.5 % (0-1.5); Blood O2 Saturation 95.9 % (92-98.5)
[2020-11-03] MEDS ORDERED: PANTOPRAZOLE 40 MG INJ ONE (12:29)
[2020-11-03] MEDS ORDERED: Meropenem 1 GM/100 ML BAG ONE (12:29)
[2020-11-03] MEDS ORDERED: LORazepam 2 MG/ML VIAL ONE (12:45)
[2020-11-03 13:05] LABS: SARS-COV-2 RT PCR NEGATIVE (NEGATIVE)
[2020-11-03] MEDS ORDERED: NOREPINEPHRINE 4mg/D5W 250mL 4 MG/250 ML BAG IV ONE (13:21)
--- NOTE | 2020-11-03 13:23 | RAD REPORT ---
EXAM DESCRIPTION: CT - Chest Abd Pelvis Wo Con - 11/03/2020 12:47 pm CLINICAL HISTORY: Abdominal distention;Chest pain;COPD, history of cholangiocarcinoma COMPARISON: Thorax W/ Con dated 11/20/2017; Chest Single View dated 11/03/2020 TECHNIQUE: During dynamic enhancement using 100 milliliters nonionic IV contrast, axial 5 millimeter thick images of the chest, abdomen and pelvis were obtained. Biphasic technique was utilized through the abdomen. Oral contrast was administered. All CT scans are performed using dose optimization technique as appropriate and may include automated exposure control or mA/KV adjustment according to patient size. FINDINGS: Advanced COPD changes are present. The patient has extensive subpleural bulla and bleb for mation with the air-filled cystic cavities up to 5 cm in size, more pronounced in each upper lobe. In terstitial fibrotic stranding is present more pronounced in each lung base. No focal consolidation id entified. Interstitial edema or infiltrate could be masked by the baseline fibrotic change. No endobr onchial lesions identified. No pneumothorax or pleural effusion. No chest wall mass or abnormal axil valdez lymphadenopathy seen. A few small nonspecific mediastinal lymph nodes are present. Subcarinal a nd right hilar granulomatous type calcifications are present. Cardiomegaly is present without pericardial effusion. Heart size has enlarged from the 2018 CT study . Liver is enlarged and shows a nodular contour to the liver capsule. No focal liver parenchymal lesion s seen on noncontrast imaging. No pancreatic or peripancreatic acute finding. No focal splenic abnorm ality. There are small accessory splenic nodules in the splenic hilum adjacent to the tail. This crea sandi nodularity of the pancreatic tail. Gallbladder is absent. No biliary tree dilatation. No suspicion for mass in the gallbladder fossa. No hydronephrosis of either kidney. No obstructing or nonobstructing calculi seen. Isodense masses an d pyelonephritis cannot be excluded. No adrenal abnormalities. Urinary bladder is tightly contracted precluding assessment. Uterus is absent. Ovaries are absent or atrophic. No gastric dilatation or gastric wall thickening. Air, fluid and fluid are present in the stomach. Th ere is an elongated tubular structure within the stomach approximately 6- 7 cm in length. Purpose of this structure is unknown. There is no evidence for stricture or luminal narrowing in the stomach. No dilated large or small bowel loops seen. Patient has a very tortuous rectosigmoid segment of colon w ith diverticulosis. No diverticulitis or acute finding. Appendectomy clips are present. Moderate stoo l volume seen in most of the colon. No free air, free fluid or inflammatory stranding. Patient has a few small periaortic lymph nodes. A few small mesenteric lymph nodes are present. There is no suspicious lymph node pattern. A 6 centimeter diameter supraumbilical ventral hernias present. The neck is 2 cm with no bowel involv ement. Disc and bone degenerative changes are present. No acute or pathologic bone process. IMPRESSION: Advanced COPD with no mass or consolidation in the lung parenchyma. Cardiomegaly without pericardial thickening or effusion. Mild interstitial infiltrate or interstitial edema related to failure or volume overload could be masked by the chronic interstitial pattern. CT abdomen and pelvis imaging shows no bowel obstruction, free air or surgically emergent finding. No ascites or suspicious lymphadenopathy. Nodularity to the liver capsule suggest cirrhosis or underlying hepatic parenchymal disease. No focal lesion on noncontrast imaging. No acute GI process identified. Patient has moderate stool volume throughout most of the colon. There is a 6-7 mm tubular device in the lumen of the stomach. This has the appearance of a stent with the purpose uncertain. There is no gastric obstruction.
--- NOTE | 2020-11-03 14:04 | ER ---
Nurse's Notes [facility] Name: Kristal Gaspar Age: 60 yrs Sex: Female : 1960 Arrival Date: 11/03/2020 Time: 10:43 Bed 14 Private MD: Diagnosis: Hypotension;Chronic obstructive pulmonary disease with (acute) exacerbation;Abdominal tenderness;Cardiomegaly;Hypoxemia;Malignant neoplasm of gallbladder-umclear Presentation: 11/03 10:44 Acuity: GIULIA 1 ca1 10:44 Chief complaint: Patient states: SOB started this morning, On continuous home O2 at ca1 3LPM via NC, SPO2 at 40%. Placed in NRB SPO2 at 71-73%. HX of CHF, COPD, Cancer. Coronavirus screen: Client denies travel out of the [place] in the last 14 days. difficulty breathing, shortness of breath, Client presents with at least one sign or symptom that may indicate coronavirus-19. Standard/surgical mask placed on the client. Provider contacted for isolation considerations. Ebola Screen: Patient negative for fever greater than or equal to 101.5 degrees Fahrenheit, and additional compatible Ebola Virus Disease symptoms Patient denies exposure to infectious person. Patient denies travel to an Ebola-affected area in the 21 days before illness onset. No symptoms or risks identified at this time. Initial Sepsis Screen: Does the patient meet any 2 criteria? RR > 20 per min. HR > 90 bpm. Yes Does the patient have a suspected source of infection? Yes: Productive cough/pneumonia If YES to both, name of provider notified: Chris Kruse MD. Risk Assessment: Do you want to hurt yourself or someone else? Patient reports no desire to harm self or others. Onset of symptoms was November 03, 2020. 10:44 Method Of Arrival: Wheelchair ca1 Triage Assessment: 10:44 Respiratory: Reports shortness of breath at rest Airway is patent Respiratory effort is ca1 labored, gasping, using tripod position, Respiratory pattern is tachypnea. 10:45 Respiratory: Onset: The symptoms/episode began/occurred yesterday, the patient has jd3 severe shortness of breath. Historical: - Allergies: 11:18 No Known Allergies; ca1 - PMHx: 11:18 CHF; COPD; Degenerative disc disease; Gallbladder cancer; Headaches; Hyperlipidemia; ca1 Hypertension; low back pain; - PSHx: 11:18 Appendectomy; Cholecystectomy; ca1 - Immunization history:: Adult Immunizations up to date, Client reports receiving the 2nd dose of the Covid vaccine, Client reports receiving the 1st dose of the Covid vaccine, Flu vaccine is up to date. - Social history:: Smoking status: unknown. Screenin:31 Abuse screen: Denies threats or abuse. Nutritional screening: No deficits noted. jd3 Tuberculosis screening: No symptoms or risk factors identified. Fall Risk Ambulatory Aid- None/Bed Rest/Nurse Assist (0 pts). Gait- Normal/Bed Rest/Wheelchair (0 pts) Mental Status- Oriented to own ability (0 pts). Total Nicole Fall Scale indicates No Risk (0-24 pts). Assessment: 10:45 General: Appears distressed, uncomfortable, Behavior is cooperative, anxious. Pain: jd3 Complains of pain in abdomen Quality of pain is described as sharp. Neuro: Level of Consciousness is awake, alert, obeys commands, Oriented to person, place, time, situation. Cardiovascular: Heart tones present Rhythm is irregular. Respiratory: Reports shortness of breath at rest labored breathing Airway is patent Respiratory effort is gasping, shallow, Respiratory pattern is hyperventilation tachypnea Breath sounds are clear bilaterally. GI: Abdomen is round distended, Bowel sounds hypoactive in right upper quadrant, left upper quadrant, right lower quadrant and left lower quadrant Abd is soft X 4 quads Abdomen is tender to palpation in right upper quadrant and left upper quadrant Reports upper abdominal pain. : No signs and/or symptoms were reported regarding the genitourinary system. EENT: No signs and/or symptoms were reported regarding the EENT system. Derm: Skin is intact, Skin is diaphoretic, Skin is normal, Skin temperature is cool. Musculoskeletal: Circulation, motion, and sensation intact. Range of motion: intact in all extremities. 11:45 Reassessment: No changes from previously documented assessment. Patient and/or family jd3 updated on plan of care and expected duration. Pain level reassessed. 12:45 Reassessment: No changes from previously documented assessment. Patient and/or family jd3 updated on plan of care and expected duration. Pain level reassessed. 13:26 Reassessment: Patient and/or family updated on plan of care and expected duration. Pain jd3 level reassessed. pt reports starting to feel a little better. pt with tachypnea with labored respirations. pt appears more relaxed with respirations. 14:25 Reassessment: No changes from previously documented assessment. Patient and/or family jd3 updated on plan of care and expected duration. Pain level reassessed. 15:22 Reassessment: Patient and/or family updated on plan of care and expected duration. Pain jd3 level reassessed. Patient is alert, oriented x 3, equal unlabored respirations, skin warm/dry/pink. report given to [facility] Patient states feeling better. 16:18 Reassessment: Patient and/or family updated on plan of care and expected duration. Pain jd3 level reassessed. Patient is alert, oriented x 3, equal unlabored respirations, skin warm/dry/pink. pt with [facility] to [facility] Amarj[facility] Patient states feeling better. Vital Signs: 10:44 BP 103 / 79; Pulse 103; Resp 35 S; Pulse Ox 73% on Non-rebreather mask; Weight 64.86 kg ca1 (R); Height 5 ft. 3 in. (160.02 cm) (R); 11:30 BP 72 / 53; Pulse 70; Resp 30 S; Pulse Ox 96% on BiPAP; jd3 12:30 BP 89 / 74; Pulse 92; Resp 31 S; Pulse Ox 94% on BiPAP; jd3 13:27 BP 94 / 81; Pulse 85; Resp 27 S; Pulse Ox 98% on BiPAP; jd3 13:31 BP 67 / 49; Pulse 91; Resp 25 S; Pulse Ox 97% on BiPAP; jd3 13:44 BP 111 / 86; Pulse 83; Resp 23 S; Pulse Ox 97% on BiPAP; jd3 14:34 BP 99 / 77; Pulse 86; Resp 18 S; Pulse Ox 96% on BiPAP; jd3 15:22 BP 96 / 70; Pulse 93; Resp 19 S; Pulse Ox 97% on BiPAP; jd3 16:19 BP 110 / 81; Pulse 91; Resp 20 S; Pulse Ox 96% on 2 lpm NC; jd3 10:44 Body Mass Index 25.33 (64.86 kg, 160.02 cm) ca1 13:31 levophed started jd3 ED Course: 10:43 Patient arrived in ED. as 10:44 Arm band placed on right wrist. ca1 10:44 One on one care from 1044 to 1330. jd3 10:44 Patient has correct armband on for positive identification. Placed in gown. Bed in low jd3 position. Call light in reach. Side rails up X2. Adult w/ patient. radiation monitor on. Pulse ox on. NIBP on. 10:45 Inserted saline lock: 20 gauge in right wrist, using aseptic technique. jd3 10:45 Inserted saline lock: 20 gauge in left forearm, using aseptic technique. Blood jd3 collected. 10:54 Triage completed. ca1 11:02 Tonio Chris, RN is Primary Nurse. jd3 11:30 Accessed Port-a-Cath. using accessed w/ # 20 Garcia needle, ,sterile technique, per [facility] protocol. Clean \T\ dry. Dressing intact. Good blood return. Flushes easily. 11:38 Chris Kruse MD is Attending Physician. leon 11:41 CXR XRAY In Process Unspecified. EDMS 12:47 CT Chest Abdomen Pelvis W/O Contrast In Process Unspecified. EDMS 13:[address] Kruse with Anne from the [facility] transfer Center. eb 13:[address] Kruse with Jenny Pink from the [facility] Transfer eb Center. 13:[address] Kruse with Gamal from the [facility] Transfer eb Center. 13:13 initiated a transfer with Daily from the [facility] transfer center. eb 13:20 Anne from [facility] called to decline the patient in transfer/ None of the [facility] Facilities eb have an ICU bed available. 13:[address] Covington who is manager valuation for [facility] with Dr. Kruse for patient transfer eb consultation. 13:29 Gamal from [facility] called to decline the patient in transfer due to them eb being at capacity. 13:29 administrative approval given by Priscila Salinas Rn/ patient has been accepted to [facility]/ Dr. David Covington has accepted the patient in transfer/ report to be called to [phone]. 16:20 No provider procedures requiring assistance completed. Patient transferred, IV remains jd3 in place. Administered Medications: 11:22 Drug: fentaNYL (PF) 25 mcg Route: IVP; Site: right hand; jd3 12:20 Follow up: Response: No adverse reaction; RASS: Alert and Calm (0) jd3 11:23 Drug: Zofran (Ondansetron) 4 mg Route: IVP; Site: right hand; jd3 12:20 Follow up: Response: No adverse reaction jd3 12:04 Drug: NS 0.9% 1000 ml Route: IV; Rate: 1 bolus; Site: Port-a-cath; jd3 13:00 Follow up: Response: No adverse reaction; IV Status: Completed infusion; IV Intake: d3 1000ml 12:30 Drug: Meropenem 1 grams Route: IV; Rate: per protocol; Site: Port-a-cath; jd3 13:30 Follow up: Response: No adverse reaction; IV Status: Completed infusion jd3 12:30 Drug: Ativan (LORazepam) 0.5 mg Route: IVP; Site: Port-a-cath; jd3 13:30 Follow up: Response: No adverse reaction jd3 12:31 Drug: ProTONIX 40 mg Route: IVP; Site: Port-a-cath; jd3 13:30 Follow up: Response: No adverse reaction jd3 13:31 Drug: Levophed (4 mg/250 mL D5W 4 mcg/min Route: IV; Rate: calculated rate; Site: [facility] Port-a-cath; 15:30 Follow up: Response: No adverse reaction; IV Status: Infusion continued upon transfer jd3 14:27 Drug: NS 0.9% 1000 ml Route: IV; Rate: 125 ml/hr; Site: right hand; jd3 15:20 Follow up: Response: No adverse reaction; IV Status: Infusion continued upon transfer jd3 14:27 Drug: Lovenox (enoxaparin) 60 mg Route: Sub-Q; Site: abdomen; jd3 15:20 Follow up: Response: No adverse reaction jd3 14:28 Drug: SOLU-Medrol (methylPrednisoLONE) 125 mg Route: IVP; Site: right hand; jd3 15:00 Follow up: Response: No adverse reaction jd3 14:28 Drug: Xopenex (levalbuterol) 3.75 mg Route: Inhalation; jd3 15:00 Follow up: Response: No adverse reaction jd3 14:28 Drug: AtroVENT (ipratropium) Aerosol 0.5 mg Route: Inhalation; jd3 15:00 Follow up: Response: No adverse reaction jd3 14:28 Drug: NS 0.9% 500 ml Route: IV; Rate: bolus; Site: right hand; jd3 15:20 Follow up: Response: No adverse reaction; IV Status: Completed infusion; IV Intake: jd3 500ml Intake: 13:00 IV: 1000ml; Total: 1000ml. jd3 15:20 IV: 500ml; Total: 1500ml. jd3 Outcome: 14:04 ER care complete, transfer ordered by MD. quintero 16:20 Transferred by ground EMS to other acute care facility: [facility] . Transfer jd3 form completed. X-rays sent w/ patient. 16:20 Condition: stable 16:20 Instructed on the need for transfer, Demonstrated understanding of instructions. 16:21 Patient left the ED. jd3 Signatures: Dispatcher [employer] EDMS Chris Kruse MD MD cha Martinez, Amelia as Davies, Jonathon, RN RN jXuan Chandra Cheryl RN RN ca1 Corrections: (The following items were deleted from the chart) 11:19 11:19 Respiratory: Reports shortness of breath at rest Airway is patent Respiratory ca1 effort is labored, gasping, using tripod position, Respiratory pattern is tachypnea ca1 13:33 13:[address] Herrera who is manager valuation for [facility] with Dr. Kruse for patient eb transfer consultation. eb
--- NOTE | 2020-11-03 14:05 | EDPHYS ---
Physician Documentation [facility] Name: Kristal Gaspar Age: 60 yrs Sex: Female : 1960 Arrival Date: 11/03/2020 Time: 10:43 Bed 14 Private MD: PATITO Physician Chris Kruse HPI: 11/03 11:44 This 60 yrs old Black Female presents to ER via Wheelchair with complaints of Shortness leon Of Breath, Abdominal Pain. 11:44 The patient has shortness of breath at rest, with light activity. Onset: The leon symptoms/episode began/occurred last night. Duration: The symptoms are continuous, and are steadily getting worse. The patient's shortness of breath has no apparent modifying factors. Associated signs and symptoms: Pertinent positives: non-productive cough. Severity of symptoms: At their worst the symptoms were moderate in the emergency department the symptoms are unchanged. The patient has not experienced similar symptoms in the past. Historical: - Allergies: 11:18 No Known Allergies; ca1 - PMHx: 11:18 CHF; COPD; Degenerative disc disease; Gallbladder cancer; Headaches; Hyperlipidemia; ca1 Hypertension; low back pain; - PSHx: 11:18 Appendectomy; Cholecystectomy; ca1 - Immunization history:: Adult Immunizations up to date, Client reports receiving the 2nd dose of the Covid vaccine, Client reports receiving the 1st dose of the Covid vaccine, Flu vaccine is up to date. - Social history:: Smoking status: unknown. ROS: 11:45 Eyes: Negative for injury, pain, redness, and discharge, ENT: Negative for injury, leon pain, and discharge, Neck: Negative for injury, pain, and swelling, Respiratory: Negative for shortness of breath, cough, wheezing, and pleuritic chest pain, Back: Negative for injury and pain, : Negative for injury, bleeding, discharge, and swelling, MS/Extremity: Negative for injury and deformity, Neuro: Negative for headache, weakness, numbness, tingling, and seizure, Psych: Negative for depression, anxiety, suicide ideation, homicidal ideation, and hallucinations, Allergy/Immunology: Negative for hives, rash, and allergies, Endocrine: Negative for neck swelling, polydipsia, polyuria, polyphagia, and marked weight changes, Hematologic/Lymphatic: Negative for swollen nodes, abnormal bleeding, and unusual bruising. 11:45 Constitutional: Positive for chills, fatigue, fever, malaise. 11:45 Respiratory: Positive for cough, shortness of breath, at rest. 11:45 Abdomen/GI: Positive for abdominal pain, nausea and vomiting, abdominal cramps, abdominal distension, of the epigastric area, right upper quadrant and right lower quadrant. Exam: 11:45 Constitutional: This is a well developed, well nourished patient who is awake, alert, leon and in no acute distress. Head/Face: Normocephalic, atraumatic. Eyes: Pupils equal round and reactive to light, extra-ocular motions intact. Lids and lashes normal. Conjunctiva and sclera are non-icteric and not injected. Cornea within normal limits. Periorbital areas with no swelling, redness, or edema. ENT: Nares patent. No nasal discharge, no septal abnormalities noted. Tympanic membranes are normal and external auditory canals are clear. Oropharynx with no redness, swelling, or masses, exudates, or evidence of obstruction, uvula midline. Mucous membranes moist. Neck: Trachea midline, no thyromegaly or masses palpated, and no cervical lymphadenopathy. Supple, full range of motion without nuchal rigidity, or vertebral point tenderness. No Meningismus. Chest/axilla: Normal chest wall appearance and motion. Nontender with no deformity. No lesions are appreciated. Respiratory: Lungs have equal breath sounds bilaterally, clear to auscultation and percussion. No rales, rhonchi or wheezes noted. No increased work of breathing, no retractions or nasal flaring. Back: No spinal tenderness. No costovertebral tenderness. Full range of motion. Female : Normal external genitalia. MS/ Extremity: Pulses equal, no cyanosis. Neurovascular intact. Full, normal range of motion. Neuro: Awake and alert, GCS 15, oriented to person, place, time, and situation. Cranial nerves II-XII grossly intact. Motor strength 5/5 in all extremities. Sensory grossly intact. Cerebellar exam normal. Normal gait. Psych: Awake, alert, with orientation to person, place and time. Behavior, mood, and affect are within normal limits. 11:45 Cardiovascular: Rate: tachycardic, Rhythm: regular, Pulses: Pulses are 4+ in bilateral radial, brachial, femoral, popliteal, posterior tibial and and dorsalis pedis arteries.. Heart sounds: normal, Edema: 1+ edema to level of left midcalf and right midcalf. 11:45 ECG was reviewed by the Attending Physician. 11:45 Respiratory: mild respiratory distress is noted, moderate respiratory distress is noted, Respirations: labored breathing, Breath sounds: rales, that are mild, that are moderate, are located in both bases, are heard in the right middle lobe, left lower lobe, right lower lobe, left posterior lower lobe, right posterior middle lobe and right posterior lower lobe, rhonchi. 11:45 Abdomen/GI: Inspection: distension, Bowel sounds: active, Palpation: moderate abdominal tenderness, Liver: is enlarged, palpable 12 cm(s) below rib margin, tenderness, that is moderate, Hernia: not appreciated. Vital Signs: 10:44 BP 103 / 79; Pulse 103; Resp 35 S; Pulse Ox 73% on Non-rebreather mask; Weight 64.86 kg ca1 (R); Height 5 ft. 3 in. (160.02 cm) (R); 11:30 BP 72 / 53; Pulse 70; Resp 30 S; Pulse Ox 96% on BiPAP; jd3 12:30 BP 89 / 74; Pulse 92; Resp 31 S; Pulse Ox 94% on BiPAP; jd3 13:27 BP 94 / 81; Pulse 85; Resp 27 S; Pulse Ox 98% on BiPAP; jd3 13:31 BP 67 / 49; Pulse 91; Resp 25 S; Pulse Ox 97% on BiPAP; jd3 13:44 BP 111 / 86; Pulse 83; Resp 23 S; Pulse Ox 97% on BiPAP; jd3 14:34 BP 99 / 77; Pulse 86; Resp 18 S; Pulse Ox 96% on BiPAP; jd3 15:22 BP 96 / 70; Pulse 93; Resp 19 S; Pulse Ox 97% on BiPAP; jd3 16:19 BP 110 / 81; Pulse 91; Resp 20 S; Pulse Ox 96% on 2 lpm NC; jd3 10:44 Body Mass Index 25.33 (64.86 kg, 160.02 cm) ca1 13:31 levophed started jd3 MDM: 11:44 Patient medically screened. leon 11:49 Differential diagnosis: Anemia Anxiety Reaction CHF exacerbation, Chronic Obstructive leon Pulmonary Disease Myocardial Infarction pneumonia, reactive airway disease, Unstable Angina coronary artery disease, Cholelithiasis, gastritis, GI Bleed, non-specific abd pain, pancreatitis, Pyelonephritis, Ureterolithiasis, urinary tract infection. Antibiotic administration: MERREM. Differential Diagnosis sepsis. The patient's Wells Deep Vein Thrombosis Score was calculated as follows: Heart Rate >100 BPM (1.5 Pts) Malignancy Total Score: 3-6 Pts - Mod Risk. The patient's pulmonary embolism risk score was calculated as follows: the patients heart rate is greater than 100 beats per minute (1.5 Pts) malignancy Total Score: 3-6 points. This patient was found to be at moderate risk for a pulmonary embolism by using the Well's assessment criteria. Immunization status: Influenza vaccine: Data reviewed: vital signs, nurses notes, EMS record, lab test result(s), EKG, radiologic studies, CT scan, plain films. Data interpreted: cardiac monitor: rate is 103 beats/min, Pulse oximetry: on room air is 73 %. Test interpretation: by ED physician or midlevel provider: ECG, plain radiologic studies. Counseling: I had a detailed discussion with the patient and/or guardian regarding: the historical points, exam findings, and any diagnostic results supporting the discharge/admit diagnosis, lab results, radiology results, the need to transfer to another facility, for higher level of care, [facility] does not immediately have the required specialist. 11/03 11:04 Order name: Blood Culture Adult [facility]2) [facility] 11/03 11:04 Order name: BMP 11/03 11:04 Order name: C-Reactive Protein [facility] 11/03 11:04 Order name: CBC with Diff 11/03 11:04 Order name: D-Dimer [facility] 11/03 11:04 Order name: Ferritin 11/03 11:04 Order name: Flu 11/03 11:04 Order name: Lactate 11/03 11:04 Order name: LFT's 11/03 11:04 Order name: Lipase [facility] 11/03 11:04 Order name: Procalcitonin; Complete Time: 11:56 [facility] 11/03 11:04 Order name: PT-INR; Complete Time: 11:43 [facility] 11/03 11:04 Order name: Ptt, Activated; Complete Time: 11:43 [facility] 11/03 11:04 Order name: Strep 11/03 11:04 Order name: Troponin (emerg Dept Use Only); Complete Time: 11:43 [facility] 11/03 11:04 Order name: Blood Culture [facility] 11/03 11:04 Order name: Basic Metabolic Panel; Complete Time: 11:43 [facility] 11/03 11:04 Order name: C-Reactive Protein; Complete Time: 11:44 [facility] 11/03 11:04 Order name: CBC with Automated Diff; Complete Time: 11:43 [facility] 11/03 11:05 Order name: D-Dimer; Complete Time: 11:43 [facility] 11/03 11:05 Order name: Ferritin; Complete Time: 11:44 [facility] 11/03 11:05 Order name: Lactate; Complete Time: 11:56 [facility] 11/03 11:05 Order name: Liver (Hepatic) Function; Complete Time: 11:43 [facility] 11/03 11:05 Order name: Lipase; Complete Time: 11:44 [facility] 11/03 11:43 Order name: Type And Screen [facility] 11/03 11:44 Order name: Type and Screen; Complete Time: 13:24 [facility] 11/03 11:04 Order name: CXR XRAY; Complete Time: 11:56 [facility] 11/03 11:04 Order name: EKG; Complete Time: 11:05 [facility] 11/03 11:04 Order name: Cardiac monitoring; Complete Time: 12:30 [facility] 11/03 11:04 Order name: Droplet/Contact Precautions; Complete Time: 12:30 [facility] 11/03 11:04 Order name: EKG - Nurse/Tech; Complete Time: 12:09 [facility] 11/03 11:04 Order name: IV Start; Complete Time: 12:09 [facility] 11/03 11:04 Order name: Labs collected and sent; Complete Time: 12:30 [facility] 11/03 11:04 Order name: O2 Per Protocol; Complete Time: 12:09 [facility] 11/03 11:04 Order name: O2 Sat Monitoring; Complete Time: 12:09 [facility] 11/03 11:43 Order name: CT Chest Abdomen Pelvis W/O Contrast [facility] 11/03 11:43 Order name: Misc. Order: ACCESS PORT A CATH NOW; Complete Time: 12:03 [facility] 11/03 11:51 Order name: ABG leon 11/03 11:51 Order name: BIPAP [facility] 11/03 11:52 Order name: ABG Arterial Blood Gas; Complete Time: 13:11 EDMS 11/03 12:05 Order name: BNP leon 11/03 12:05 Order name: NT PRO-BNP; Complete Time: 12:50 EDMS 11/03 13:05 Order name: COVID-19/FLU A+B; Complete Time: 13:11 EDMS 11/03 16:17 Order name: ABO/RH no charge EDMS EC:45 Rate is 112 beats/min. Rhythm is regular. QRS [place] is Normal. AR interval is normal. leon QRS interval is normal. QT interval is normal. No Q waves. T waves are Normal. No ST changes noted. Clinical impression: Sinus tachycardia. Interpreted by me. Reviewed by me. Administered Medications: 11:22 Drug: fentaNYL (PF) 25 mcg Route: IVP; Site: right hand; jd3 12:20 Follow up: Response: No adverse reaction; RASS: Alert and Calm (0) jd3 11:23 Drug: Zofran (Ondansetron) 4 mg Route: IVP; Site: right hand; jd3 12:20 Follow up: Response: No adverse reaction jd3 12:04 Drug: NS 0.9% 1000 ml Route: IV; Rate: 1 bolus; Site: Port-a-cath; jd3 13:00 Follow up: Response: No adverse reaction; IV Status: Completed infusion; IV Intake: jd3 1000ml 12:30 Drug: Meropenem 1 grams Route: IV; Rate: per protocol; Site: Port-a-cath; jd3 13:30 Follow up: Response: No adverse reaction; IV Status: Completed infusion jd3 12:30 Drug: Ativan (LORazepam) 0.5 mg Route: IVP; Site: Port-a-cath; jd3 13:30 Follow up: Response: No adverse reaction jd3 12:31 Drug: ProTONIX 40 mg Route: IVP; Site: Port-a-cath; jd3 13:30 Follow up: Response: No adverse reaction jd3 13:31 Drug: Levophed (4 mg/250 mL D5W 4 mcg/min Route: IV; Rate: calculated rate; Site[facility] Port-[facility]; 15:30 Follow up: Response: No adverse reaction; IV Status: Infusion continued upon transfer jd3 14:27 Drug: NS 0.9% 1000 ml Route: IV; Rate: 125 ml/hr; Site: right hand; jd3 15:20 Follow up: Response: No adverse reaction; IV Status: Infusion continued upon transfer jd3 14:27 Drug: Lovenox (enoxaparin) 60 mg Route: Sub-Q; Site: abdomen; jd3 15:20 Follow up: Response: No adverse reaction jd3 14:28 Drug: SOLU-Medrol (methylPrednisoLONE) 125 mg Route: IVP; Site: right hand; jd3 15:00 Follow up: Response: No adverse reaction jd3 14:28 Drug: Xopenex (levalbuterol) 3.75 mg Route: Inhalation; jd3 15:00 Follow up: Response: No adverse reaction jd3 14:28 Drug: AtroVENT (ipratropium) Aerosol 0.5 mg Route: Inhalation; jd3 15:00 Follow up: Response: No adverse reaction jd3 14: Drug: NS 0.9% 500 ml Route: IV; Rate: bolus; Site: right hand; jd3 15:20 Follow up: Response: No adverse reaction; IV Status: Completed infusion; IV Intake: jd3 500ml Disposition: 11/03/20 14:04 Transfer ordered to Other Acute Care Facility. Diagnosis are Hypotension, Chronic obstructive pulmonary disease with (acute) exacerbation, Abdominal tenderness, Cardiomegaly, Hypoxemia, Malignant neoplasm of gallbladder - umclear. - Reason for transfer: Higher level of care. - Accepting physician is to [facility]. - Condition is Stable. - Problem is new. - Symptoms have improved. Signatures: Dispatcher [employer] EDMS Chris Kruse MD MD cha Davies, Jonathon, RN RN jd3 Deana Hernandez RN RN ca1 Corrections: (The following items were deleted from the chart) 12:21 11:05 CORONAVIRUS ordered. EDWI EDMS 12:21 11:05 Influenza Screen (A ordered. EDWI EDMS 16:21 14:04 11/03/2020 14:04 Transfer ordered to Other Acute Care Facility. Diagnosis is jd3 Hypotension; Chronic obstructive pulmonary disease with (acute) exacerbation; Abdominal tenderness; Cardiomegaly; Hypoxemia; Malignant neoplasm of gallbladder - umclear. Reason for transfer: Higher level of care. Accepting physician is to [facility]. Condition is Stable. Problem is new. Symptoms have improved. leon
[2020-11-03] MEDS ORDERED: METHYLPREDNISOLONE 125 MG INJ ONE (14:26)
[2020-11-03] MEDS ORDERED: LEVALBUTEROL 1.25 MG/3 ML NEB ONE (14:27)
[2020-11-03] MEDS ORDERED: IPRATROPIUM BROM 0.5MG/2.5ML ONE (14:27)
[2020-11-03] MEDS ORDERED: NA CHLORIDE 0.9% 500 ML ONE (14:27)
[2020-11-03] MEDS ORDERED: ENOXAPARIN 60 MG/0.6 ML SQ ONE (14:28)
[2020-11-03 16:38] VITALS: BP 110/81; O2SAT 96
== END 2020-11-03 16:21 ==
LOC: ER 10:41
DX: J44.1 Chronic obstructive pulmonary disease with (acute) exacerbation (principal); C23 Malignant neoplasm of gallbladder; Z20.822 Contact with and (suspected) exposure to COVID-19; I95.9 Hypotension, unspecified; R09.02 Hypoxemia; I11.0 Hypertensive heart disease with heart failure; I50.9 Heart failure, unspecified; E78.5 Hyperlipidemia, unspecified
CPT/HCPCS: 87040; 85025; 80048; 36415; 86900; 86850; 85610; 86901; 85379; 80076; 83605; 85730; 84484; 82728; 83690; 84145; 83880; 0240U; 86140; 71250; 74176; 71045; 82805; 94660; C9113; J3010; J1650; J2185; J7040; J7030 ×2; J2930; J2405; 93005; 96372; 99291; 99292